=== PATIENT | female | born 1940 | race Caucasian/White ===

== ENCOUNTER → 2019-01-01 09:04 | Outpatient (CLI) | payer MEDICARE, SELFPAY ==
[2019-01-01 10:38] LABS: Alanine Aminotransferase 15 U/L (12-78); Albumin Level 3.9 gm/dL (3.4-5.0); Alkaline Phosphatase 91 U/L (46-116); Aspartate Amino Transferase 14 U/L (15-37); Bilirubin,Direct 0.1 mg/dL (0.0-0.2); Bilirubin,Indirect 0.2 mg/dL (0.0-0.9); Bilirubin,Total 0.3 mg/dL (0.2-1.0); Chol/HDL Ratio 4.4 (1-3.5); Cholesterol 203 mg/dL (140-200); HDL Cholesterol 46 mg/dL (29-89); LDL Cholesterol 116 mg/dL (0-130); Total Protein,Serum 7.8 gm/dL (6.4-8.2); Triglycerides 205 mg/dL (30-200); VLDL Cholesterol 41 mg/dL (0-40)
== END ==
PROVIDERS: Visit Provider Internal Medicine Cardiovascular Disease
DX: E78.2 Mixed hyperlipidemia (principal); G47.33 Obstructive sleep apnea (adult) (pediatric); I10 Essential (primary) hypertension; I44.0 Atrioventricular block, first degree
CPT/HCPCS: 36415; 80061; 80076

== ENCOUNTER → 2019-01-03 08:55 | Outpatient (CLI) | payer MEDICARE, SELFPAY ==
[2019-01-03 09:13] LABS: Basophils # 0.1 K/mm3 (0-0.2); Basophils % 0.9 % (0.1-2.0); Eosinophils # 0.2 K/mm3 (0.0-0.4); Eosinophils % 3.2 % (0.1-12.0); Hematocrit 39.2 % (37.0-47.0); Hemoglobin 12.5 g/dL (12.2-16.2); Lymphocytes # 1.7 K/mm3 (0.7-4.5); Lymphocytes % 31.3 % (10-50); Mean Corpuscular Hemoglobin 31.5 pg (27.0-31.2); Mean Corpuscular Volume 98.5 fl (81-99); Monocytes # 0.3 K/mm3 (0.1-1.0); Monocytes % 6.1 % (1.7-9.3); Neutrophils # 3.2 K/mm3 (1.8-7.8); Neutrophils % 58.6 % (37.0-80.0); Platelet Count 304 K/mm3 (142-424); Red Blood Count 3.98 M/mm3 (4.20-5.40); Red Cell Distribution Width 12.3 % (11.5-17.5); White Blood Count 5.4 K/mm3 (4.8-10.8)
[2019-01-03 11:44] LABS: Alanine Aminotransferase 16 U/L (12-78); Albumin Level 3.7 gm/dL (3.4-5.0); Albumin/Globulin Ratio 1.1 (1.1-1.8); Alkaline Phosphatase 94 U/L (46-116); Anion Gap 11.7 mEq/L (5-15); Aspartate Amino Transferase 14 U/L (15-37); Bilirubin,Total 0.4 mg/dL (0.2-1.0); Blood Urea Nitrogen 32 mg/dL (7-18); Calcium 10.4 mg/dL (8.5-10.1); Carbon Dioxide 32 mmol/L (21.0-32.0); Chloride 102 mmol/L (98-107); Creatinine,Serum 1.37 mg/dL (0.55-1.02); Estimated Glomerular Filt Rate 37 ml/min (>60); Free T4 (Free Thyroxine) 0.99 ng/dl (0.76-1.46); GFR (African American) 45 ML/MIN (>60); Globulin 3.5 gm/dl (1.3-3.2); Glucose 108 mg/dL (74-106); Potassium 4.7 mmoL/L (3.5-5.1); Sodium 141 mmol/L (136-145); Total Protein,Serum 7.2 gm/dL (6.4-8.2)
[2019-01-03 16:59] LABS: Hemoglobin A1C 6.5 % (0.0-7.0)
== END ==
PROVIDERS: Visit Provider Family Medicine
DX: E11.9 Type 2 diabetes mellitus without complications (principal); I10 Essential (primary) hypertension; Z79.84 Long term (current) use of oral hypoglycemic drugs
CPT/HCPCS: 36415; 80053; 83036; 84439; 84443; 85025

== ENCOUNTER → 2019-04-25 20:18 | Outpatient (CLI) | payer MEDICARE, SELFPAY | PROVIDERS: PCP Family Medicine; Visit Provider Specialist | DX: G47.31 Primary central sleep apnea (principal); G89.29 Other chronic pain; I10 Essential (primary) hypertension | CPT/HCPCS: 95811 ==

== ENCOUNTER → 2020-01-09 11:44 | Outpatient (CLI) | payer MEDICARE, SELFPAY ==
--- NOTE | 2020-01-09 | CA_ITS ---
APPROVED REPORT Exam: Pharmacologic Technologist: Opal Hdez, Ht: 5 ft 7 in Wt: 156 lbs BSA: 1.82 m2 HR: 49 bpm BP: 182/71 mmHg Medical History Medical History: Diabetic ??? Noninsulin, HTN, Hyperlipidemia Medications: Metoprolol,,,,, Simvastatin,,,,, Asa,,,,, Hydrocodone,,,,, Losartan,,,,, HCTZ,,,,, Vit B12,,,,, Vit D 3,,,,, OxYbutyIN,,,,, Allergies: No known drug allergies Cardiac Risk Factors: HTN, Hyperlipidemia, Diabetes (non-insulin), FHX of CAD Stress Test Details Test: LEXISCAN HR Resting HR: 54 bpm Max Heart Rate (APMHR): 140 bpm Max HR Achieved: 87 bpm Target HR (85% APMHR): 119 bpm % of APMHR: 62 Recovery HR: 79 bpm BP Resting BP: 182.0/71.0 mmHg Max BP: 182.0/71.0 mmHg Recovery BP: 146.0/63.0 mmHg ECG Resting ECG: SINUS MAX,FIRST DEGREE AVB,Q WAVE IN V2 Clinical Exercise duration: 04:06 min Highest Stage Achieved: Exercise capacity: 1.0 METs Stress ECG Conclusion SWITCHED FROM EXERCISE DUE TO SLOW HEART RATE AN CONCERNS ABOUT EXERCISE TOLERANCE. DURING INFUSION PATIENT HAD SOA,MILD MALAISE BUT NO CHEST PAIN. NO ARRHYTHMIAS/ECTOPY. NO SIGNIFICANT ST-T CHANGES. UNREMARKABLE LEXISCAN STRESS. MYOVIEW IMAGES REPORTED SEPARATELY. . Test Summary REST 01:17 . . 54 . 182/ 71 . . Stage 1 . . . . . . . Cardiolite injected Stage 1 01:00 . . 79 . 178/ 65 . . Stage 2 01:00 . . 86 . 136/ 67 . . Stage 3 01:00 . . 83 . 143/ 67 . . Stage 4 01:00 . . 85 . 141/ 66 . . Stage 4 01:06 . . 84 . 141/ 66 . Stop exercise at 04:06 RECOVERY 01:00 . . 80 . . . . RECOVERY 02:00 . . 78 . 146/ 63 . . RECOVERY 03:00 . . 75 . 150/ 68 . . RECOVERY 04:00 . . 78 . 156/ 70 . . RECOVERY 04:37 . . 76 . 156/ 70 . . Electronically signed by : Derek Stephenson, 01/10/2020 08:51:31
--- NOTE | 2020-01-09 11:44 | NM_ITS ---
APPROVED REPORT Exam: Nuclear Stress Test Indication: Chest pain, SOB, HTN, DM, High cholesterol, Family history Patient Location: Outpatient Stress Tech: Maryuri Hdez NE Tech:Alison Valladares, ARRT, RT (R)(N) Ht: 5 ft 7 in Wt: 156 lbs Bra Size: 38C HR: 49 bpm BP: 182/71 mmHg BSA: 1.82 m2 BMI: 24.4 History: Chest pain, SOB, HTN, DM, High cholesterol, Family history Procedure: Patient received a 0.4 mg of intravenous Lexiscan, resting heart rate 49 bpm, resting blood pressure 182/71 mmHg, with Lexiscan maximum heart rate achived was 87 bpm which is % of the maximum predicted heart rate and blood pressure was 143/67 mmHg. With Lexiscan, patient denied any complaint of chest pain. Cardiac Stress and Resting SPECT Images: Cardiac Stress and Resting SPECT images were obtained using technetium 99m Myoview 29.4 mCi stress and 10.84 mCi at rest. EF 65% Diaphragmatic attenuation artifact No reversible defects that would indicate ischemic changes Conclusion: EF 65% Diaphragmatic attenuation artifact No reversible defects that would indicate ischemic changes Electronically signed by : Dexter Vásquez MD 01/09/2020 20:14:32
--- NOTE | 2020-01-09 12:43 | HMH.ITSHM ---
Current Home Medications as stated by this patient Sharmila Juares or resources representative. []LOSARTAN METFORMIN METOPROLOL HYDROCHLOROTHIAZIDE OMEPRAZOLE SIMVASTATIN HYDROCODONE
== END ==
PROVIDERS: PCP Family Medicine; Visit Provider Physician Assistant
DX: E11.9 Type 2 diabetes mellitus without complications (principal); I10 Essential (primary) hypertension; I20.9 Angina pectoris, unspecified; I44.0 Atrioventricular block, first degree; R06.00 Dyspnea, unspecified; R94.31 Abnormal electrocardiogram [ECG] [EKG]; Z79.84 Long term (current) use of oral hypoglycemic drugs
CPT/HCPCS: 78452; 93017; A9502; J2785

== ENCOUNTER 2020-03-02 09:27 | Emergency (ER) | payer MEDICARE, SELFPAY ==
--- NOTE | 2020-03-02 09:35 | ECG_ITS ---
APPROVED REPORT Exam: Resting ECG HR:103 bpm ECG Measurements Heart Rate 103 AXES RI 192 P 44 QRSd 102 QRS -58 QT 366 T 86 QTc 479 <Conclusion> Sinus tachycardia Left anterior fascicular block Left ventricular hypertrophy with repolarization abnormality Anteroseptal infarct, age undetermined Abnormal ECG Electronically signed by : Harjeet Dowell, 03/03/2020 14:08:00
[2020-03-02 09:37] VITALS: BP 119/69; PULSE 108; RESP 16; TEMP 36.9; O2SAT 90; BMI 24.2
--- NOTE | 2020-03-02 09:47 | XR_ITS ---
PROCEDURE: XR CHEST PORTABLE CLINICAL HISTORY: chest pain COMPARISON: [facility] CT CHEST W/O CONTRAST from 08/16/2017 FINDINGS: The cardiomediastinal silhouette and pulmonary vascularity are within normal limits. There is mild aortic tortuosity. The lungs are clear without infiltrates, suspicious nodules, or pleural effusions. There monitor lines overlying the chest. No acute bony abnormalities. There are degenerative changes in both AC joints. IMPRESSION: No acute findings. Dictated by: Dr. Ishaan Freitas MD 03/02/2020 11:[address] Ishaan Freitas MD in [place] 03/02/2020 11:10
[2020-03-02 09:54] VITALS: BP 103/55; PULSE 98; O2SAT 97
[2020-03-02 09:54] LABS: Basophils # 0.1 K/mm3 (0-0.2); Basophils % 0.4 % (0.1-2.0); Eosinophils # 0.1 K/mm3 (0.0-0.4); Eosinophils % 0.5 % (0.1-12.0); Hematocrit 35.2 % (37.0-47.0); Hemoglobin 11.2 g/dL (12.2-16.2); Lymphocytes # 0.9 K/mm3 (0.7-4.5); Lymphocytes % 4.9 % (10-50); Mean Corpuscular HGB Conc 31.7 g/dL (31.8-35.4); Mean Corpuscular Hemoglobin 30.6 pg (27.0-31.2); Mean Corpuscular Volume 96.3 fl (81-99); Mean Platelet Volume 7.3 fl (7.4-10.4); Monocytes # 0.8 K/mm3 (0.1-1.0); Monocytes % 4.5 % (1.7-9.3); Neutrophils # 15.5 K/mm3 (1.8-7.8); Neutrophils % 89.7 % (37.0-80.0); Platelet Count 352 K/mm3 (142-424); Red Blood Count 3.66 M/mm3 (4.20-5.40); Red Cell Distribution Width 13.6 % (11.5-17.5); White Blood Count 17.2 K/mm3 (4.8-10.8)
[2020-03-02 09:55] LABS: Chloride 106 mmol/L (98-107)
[2020-03-02 09:56] LABS: Potassium 4.4 mmoL/L (3.5-5.1); Sodium 136 mmol/L (136-145)
[2020-03-02 09:58] LABS: Blood Urea Nitrogen 36 mg/dl (7-17)
[2020-03-02 09:59] LABS: Anion Gap 11.4 mEq/L (5-15); Calcium 9.6 mg/dl (8.4-10.2); Carbon Dioxide 23 mmol/L (22.0-30.0); Creatinine Clearance Estimated 34 mL/min (50-200); Estimated Glomerular Filt Rate 36 ml/min (>60); GFR (African American) 44 ML/MIN (>60); Glucose 233 mg/dl (74-100)
[2020-03-02 10:01] LABS: MANUAL DIFFERENTIAL MANUAL DIFFERENTIAL (MANUAL DIFF)
[2020-03-02 10:05] LABS: Alanine Aminotransferase 21 U/L (12-78); Amylase 86 U/L (30-110); Bilirubin,Unconjugated 0.4 mg/dL (0.0-1.1)
[2020-03-02 10:06] LABS: Albumin Level 4.2 g/dl (3.5-5.0); Alkaline Phosphatase 90 U/L (38-126); Aspartate Amino Transferase 22 U/L (14-36); Bilirubin,Indirect 0.4 mg/dL (0.0-0.9); Bilirubin,Total 0.4 mg/dl (0.2-1.3); Lipase 62 U/L (23-300); Total Protein,Serum 7.6 g/dl (6.3-8.2)
[2020-03-02 10:11] LABS: Lymphocytes % 6 % (10-50); Monocytes % 4 % (2-9); Neutrophils % 86 % (42-76); Platelet Estimate Clumped; RBC Morphology Normal; Total Cells Counted 100; Troponin I < 0.01 ng/ml (0.00-0.034)
[2020-03-02 10:38] VITALS: BP 101/64; PULSE 117; O2SAT 96
--- NOTE | 2020-03-02 10:51 | HMH.EDCP ---
ED Disposition Clinical Impression: GERD (gastroesophageal reflux disease), Pneumonia Disposition: Home, Self-Care Condition on Discharge: Good Prescriptions: Metoprolol Succinate [Metoprolol Succinate 50mg Tablet*] 50 mg PO DAILY 3 Days #30 tab Transmission Status: Pending to [email or web address] Cefdinir [Omnicef 300mg Capsule] 300 mg PO BID #20 cap Transmission Status: Pending to [email or web address] Referrals: Provider,Referral, [Primary Care Provider] - - Critical Care Critical Care Time: No Attestation: On 03/02/20, the high probability of a clinically significant, sudden or life threatening deterioration of the following system(s) required my full and direct attention, intervention and personal management. The time I documented below is in addition to time spent performing reported procedures but includes the following listed in this critical care notation. Medical Decision Making - Medical Records Medical records reviewed: Yes: I reviewed the patient's medical records. - Jim Inquiry Pt receiving controlled substance: No Vital Signs: 03/02/20 09:37 03/02/20 09:54 03/02/20 10:38 Temperature 98.4 F Temperature Source Oral Pulse Rate [Left Radial] 108 H 98 H 117 H Respiratory Rate 16 Blood Pressure [Right Arm] 119/69 103/55 L 101/64 L Blood Pressure Mean [Right Arm] 85 71 76 Blood Pressure Source [Right Arm] Automatic Cuff Automatic Cuff Blood Pressure Position [Right Arm] Sitting Sitting Sitting 02 Sat by Pulse Oximetry 90 L 97 96 Oxygen Delivery Method Room Air Room Air Room Air - Lab Data Lab results reviewed: Yes: I reviewed the patient's lab results. Lab Results 03/02/20 09:40: WBC 17.2 H, RBC 3.66 L, Hgb 11.2 L, Hct 35.2 L, MCV 96.3, MCH 30.6, MCHC 31.7 L, RDW 13.6, Plt Count 352, MPV 7.3 L, Neut % (Auto) 89.7 H, Lymph % (Auto) 4.9 L, Beadle % (Auto) 4.5, Eos % (Auto) 0.5, Baso % (Auto) 0.4, Neut # (Auto) 15.5 H, Lymph # (Auto) 0.9, Beadle # (Auto) 0.8, Eos # (Auto) 0.1, Baso # (Auto) 0.1, Total Counted 100, Neutrophils % (Manual) 86 H, Band Neutrophils % 1.0, Lymphocytes % (Manual) 6 L, Monocytes % (Manual) 4, Metamyelocytes % 3.0 H, Platelet Estimate Clumped, RBC Morphology Normal 03/02/20 09:40: Sodium 136, Potassium 4.4, Chloride 106, Carbon Dioxide 23, Anion Gap 11.4, BUN 36 H, Creatinine 1.40 H, Estimated Creat Clear 34, Estimated GFR 36 L, Est GFR ( Amer) 44 L, Glucose 233 H, Calcium 9.6, Troponin I < 0.01 03/02/20 09:40: Total Bilirubin 0.4, Direct Bilirubin 0.0, Conjugated Bilirubin 0.0, Indirect Bilirubin 0.4, Unconjugated Bilirubin 0.4, AST 22, ALT 21, Alkaline Phosphatase 90, Total Protein 7.6, Albumin 4.2, Amylase 86, Lipase 62 Result diagrams: 03/02/20 09:40 03/02/20 09:40 Orders (Tests/Meds): ED MEDICATIONS Discontinued Medications Generic Name Dose Route Start Last Admin Trade Name Freq PRN Reason Stop Dose Admin Belladonna Alkaloids 60 ml 03/02/20 09:47 03/02/20 09:49 Gi Cocktail 60ml Udc PO 03/02/20 09:48 60 ml ONCE ONE Administration ORDERS Category Date Time Status XR chest portable Stat Exams 03/02/20 09:47 Taken Troponin I Q3H Lab 03/02/20 13:00 Ordered Troponin I Q3H Lab 03/02/20 16:00 Ordered - Radiology Data #1 Image(s): Chest Preliminary Findings: Abnormal (Possible left lower lobe atelectasis/developing infiltrate) - ECG Data Tracing #1 I reviewed this ECG and interpreted as documented below: Normal Sinus Rhythm: Yes Medical Decision Narrative: Patient received a GI cocktail and her pain subsided. Chest Pain HPI - General Chief Complaint: Chest Pain Stated Complaint: chest pressure heart racing Time Seen by Provider: 03/02/20 10:51 Mode of Arrival: Ambulatory Source of Information: Patient Limitations: No Limitations Description of Symptoms (Recalled from ER Triage Doc. by RN): to ed per pvt car with c/o chest burning starting this am, +vomiting, +diarrhea. pt denies any radia
--- NOTE | 2020-03-02 10:53 | PC.NURSE ---
notified pt daughter at this time of pt POC. States she is going to run home for few minutes and then she will be back
[2020-03-02 11:48] VITALS: BP 114/60; PULSE 108; RESP 18; O2SAT 96
[2020-03-02 12:40] VITALS: BP 110/63; PULSE 87; O2SAT 99
[2020-03-02 12:55] VITALS: BP 108/62; PULSE 94; RESP 20; TEMP 36.9; O2SAT 94
== END 2020-03-02 12:55 | disposition home or self-care (01) ==
PROVIDERS: Emergency Provider Family Medicine
DX: J18.9 Pneumonia, unspecified organism (principal); K21.9 Gastro-esophageal reflux disease without esophagitis; E11.9 Type 2 diabetes mellitus without complications; I10 Essential (primary) hypertension; E78.5 Hyperlipidemia, unspecified; Z90.79 Acquired absence of other genital organ(s); Z79.84 Long term (current) use of oral hypoglycemic drugs
CPT/HCPCS: 71045; 80048; 80076; 82150; 83690; 84484; 85007; 85025; 93005; 96365; 96367; 96375; 99284; J0456

== ENCOUNTER → 2021-07-07 08:05 | Outpatient (CLI) | payer MEDICARE, SELFPAY ==
[2021-07-07 08:47] LABS: Basophils # 0.1 K/mm3 (0-0.2); Basophils % 0.8 % (0.1-2.0); Eosinophils # 0.2 K/mm3 (0.0-0.4); Eosinophils % 3.6 % (0.1-12.0); Lymphocytes % 29.7 % (10-50); Mean Corpuscular HGB Conc 31.7 g/dL (31.8-35.4); Mean Corpuscular Volume 100.8 fl (81-99); Mean Platelet Volume 7.1 fl (7.4-10.4); Monocytes # 0.5 K/mm3 (0.1-1.0); Monocytes % 6.8 % (1.7-9.3); Neutrophils % 59.1 % (37.0-80.0); Platelet Count 317 K/mm3 (142-424); Red Blood Count 3.76 M/mm3 (4.20-5.40); Red Cell Distribution Width 12.2 % (11.5-17.5); White Blood Count 6.8 K/mm3 (4.8-10.8)
[2021-07-07 09:10] LABS: Alanine Aminotransferase 13 U/L (12-78); Albumin Level 4.6 g/dl (3.5-5.0); Alkaline Phosphatase 80 U/L (38-126); Aspartate Amino Transferase 21 U/L (14-36); Bilirubin,Direct 0.2 mg/dl (0.0-0.4); Bilirubin,Indirect 0.2 mg/dL (0.0-0.9); Bilirubin,Total 0.4 mg/dl (0.2-1.3); Bilirubin,Unconjugated 0.2 mg/dL (0.0-1.1); Cholesterol 160 mg/dl (140-200); HDL Cholesterol 53 mg/dl (40-60); Total Protein,Serum 7.7 g/dl (6.3-8.2); Triglycerides 187 mg/dl (30-150); VLDL Cholesterol 37 mg/dL (0-40)
[2021-07-07 09:12] LABS: Alanine Aminotransferase 14 U/L (12-78); Albumin Level 4.5 g/dl (3.5-5.0); Albumin/Globulin Ratio 1.4 (1.1-1.8); Alkaline Phosphatase 83 U/L (38-126); Anion Gap 16.4 mEq/L (5-15); Aspartate Amino Transferase 21 U/L (14-36); Bilirubin,Total 0.4 mg/dl (0.2-1.3); Blood Urea Nitrogen 36 mg/dl (7-17); Calcium 9.4 mg/dl (8.4-10.2); Carbon Dioxide 28 mmol/L (22.0-30.0); Chloride 103 mmol/L (98-107); Estimated Glomerular Filt Rate 36 ml/min (>60); GFR (African American) 44 ML/MIN (>60); Globulin 3.2 g/dL (1.3-3.2); Glucose 129 mg/dl (74-100); Potassium 4.4 mmoL/L (3.5-5.1); Sodium 143 mmol/L (136-145); Total Protein,Serum 7.7 g/dl (6.3-8.2)
[2021-07-07 09:21] LABS: Direct LDL Cholesterol 64.87 mg/dL (100-129)
[2021-07-07 09:26] LABS: 25-OH Vitamin D, Total 79.4 ng/mL (30-100)
[2021-07-07 10:38] LABS: Hemoglobin A1C 6.9 % (4.0-6.0)
[2021-07-07 11:14] LABS: Creatinine,Urine Random 108 mg/dL (Not Estab.)
[2021-07-07 11:18] LABS: Microalbumin/Creatinine Ratio 20.3
[2021-07-08 11:22] LABS: Vitamin B12 978 pg/mL (239-931)
[2021-07-08 11:26] LABS: Folate 6.33 ng/mL
== END ==
PROVIDERS: Internal Medicine Adolescent Medicine; Internal Medicine Cardiovascular Disease; Visit Provider Nurse Practitioner Family
DX: E11.9 Type 2 diabetes mellitus without complications (principal); E78.5 Hyperlipidemia, unspecified; I10 Essential (primary) hypertension; I44.0 Atrioventricular block, first degree; R94.31 Abnormal electrocardiogram [ECG] [EKG]
CPT/HCPCS: 36415; 80053; 80061; 80076; 82043; 82306; 82570; 82607; 82746; 83036; 85025

== ENCOUNTER → 2021-08-24 14:57 | Outpatient (CLI) | payer MEDICARE, SELFPAY ==
--- NOTE | 2021-08-24 14:58 | MM_ITS ---
PROCEDURE: MM DIG SCREENING MAMM BI W/CAD Digital Breast Tomosynthesis Included CLINICAL INDICATION: SCREENING There is no personal or family history of breast cancer. COMPARISON: MG MAMMO SCREENING DIGITAL TOMOSYNTHESIS BILATERAL from 08/22/2019 MG MAMMO SCREENING DIGITAL TOMOSYNTHESIS BILATERAL from 09/05/2020 TECHNIQUE: Standard CC and MLO images and 3D Tomosynthesis was obtained. R2 CAD reviewed. FINDINGS: Prominent diffuse heterogenic fibroglandular densities are seen throughout both breasts there is stable coarse benign-appearing macrocalcifications right breast. There is a mole marker left breast. There are couple of benign-appearing microcalcifications left breast. There is lesion in either breast and no suspicious microcalcifications. IMPRESSION: Markedly and diffusely dense parenchymal pattern stable unchanged from previous studies with no suspicious lesions seen BI-RAD Category: 2 Benign Finding(s) FOLLOW-UP: 1YR 1 Year Follow-up (A letter has been sent to the patient regarding results of the study.) Dictated by: Dr. Ishaan Freitas MD 09/04/2021 08:41 Dr. Ishaan Freitas MD in [place] 09/04/2021 08:41
== END ==
PROVIDERS: PCP Nurse Practitioner Family; Visit Provider Nurse Practitioner Family
DX: Z12.31 Encounter for screening mammogram for malignant neoplasm of breast (principal)
CPT/HCPCS: 77063; 77067

== ENCOUNTER → 2021-12-24 14:37 | Outpatient (CLI) | payer MEDICARE, SELFPAY | PROVIDERS: Visit Provider Internal Medicine | DX: Z01.812 Encounter for preprocedural laboratory examination (principal); Z11.52 Encounter for screening for COVID-19 | CPT/HCPCS: C9803; U0003; U0005 ==

== ENCOUNTER 2021-12-25 08:24 | Day surgery (SDC) | payer MEDICARE, SELFPAY ==
[2021-12-25] VITALS (13 sets, daily range): BP systolic 121–155; BP diastolic 60–96; PULSE 44–69; RESP 16–19; TEMP 36.8; O2SAT 95–99; BMI 26.7
--- NOTE | 2021-12-25 07:27 | IR_ITS ---
APPROVED REPORT Patient Location: Outpatient Security Assessor: LUCITA Miller RT (R) PROCEDURES Left heart catheterization Left ventriculogram Selective coronary angiogram INDICATION Abnormal Myoview, Angina pectoris, Informed consent was obtained prior to the procedure. COMPLICATIONS NONE Estimated Blood Loss: LESS THAN 10 ML TECHNIQUE One percent lidocaine used to anesthetize the right anterior aspect of the wrist. The right radial artery was accessed via the Seldinger technique. A 6 Kiswahili sheath was placed in the right radial artery. 2.5 mg of verapamil, 800 mcg of nitroglycerin, 1mg Lidocaine and 5000 U Heparin were given through the arterial sheath. The papa catheter was also used to perform left heart catheterization, left ventriculogram and selective coronary angiogram. At the end of the procedure the sheath was removed good hemostasis was achieved using Traclet band, patient was transferred to the postop holding area in stable condition. ANGIOGRAPHIC RESULTS The left main artery Normal The left anterior descending artery Normal The circumflex artery Normal The right coronary artery Dominant normal The SHELDON ventriculogram reveals Hyperdynamic 75 to 80% The left ventricular end-diastolic pressure 25 mmHg IMPRESSION Normal coronary arteries Hyperdynamic ventricle with elevated LVEDP PLAN 1. Treatment of hyperdynamic ventricle with hypertensive heart disease Electronically signed by : Derek Stephenson MD 12/25/2021 13:22:50
[2021-12-25 09:02] LABS: Basophils # 0.1 K/mm3 (0-0.2); Basophils % 1.3 % (0.1-2.0); Eosinophils # 0.1 K/mm3 (0.0-0.4); Eosinophils % 2.1 % (0.1-12.0); Hematocrit 36.4 % (37.0-47.0); Hemoglobin 11.4 g/dL (12.2-16.2); Lymphocytes # 1.6 K/mm3 (0.7-4.5); Mean Corpuscular HGB Conc 31.4 g/dL (31.8-35.4); Mean Corpuscular Hemoglobin 31.4 pg (27.0-31.2); Mean Corpuscular Volume 100.2 fl (81-99); Mean Platelet Volume 8.3 fl (7.4-10.4); Monocytes # 0.3 K/mm3 (0.1-1.0); Monocytes % 5.6 % (1.7-9.3); Neutrophils # 3.6 K/mm3 (1.8-7.8); Platelet Count 297 K/mm3 (142-424); Red Blood Count 3.63 M/mm3 (4.20-5.40); Red Cell Distribution Width 13.3 % (11.5-17.5); White Blood Count 5.8 K/mm3 (4.8-10.8)
[2021-12-25 09:12] LABS: Chloride 103 mmol/L (98-107); Potassium 4.1 mmoL/L (3.5-5.1); Sodium 137 mmol/L (136-145)
[2021-12-25 09:15] LABS: Anion Gap 11.1 mEq/L (5-15); Blood Urea Nitrogen 31 mg/dl (7-17); Carbon Dioxide 27 mmol/L (22.0-30.0); Creatinine Clearance Estimated 33 mL/min (50-200); Estimated Glomerular Filt Rate 31 ml/min (>60); GFR (African American) 37 ML/MIN (>60)
[2021-12-25 09:16] LABS: Calcium 8.4 mg/dl (8.4-10.2); Glucose 134 mg/dl (74-100)
== END 2021-12-25 14:23 | disposition home or self-care (01) ==
LOC: CATHLAB 08:25
PROVIDERS: PCP Nurse Practitioner Family; Visit Provider Internal Medicine
DX: E11.9 Type 2 diabetes mellitus without complications (principal); E78.2 Mixed hyperlipidemia; I10 Essential (primary) hypertension; I44.0 Atrioventricular block, first degree; K21.9 Gastro-esophageal reflux disease without esophagitis; R06.00 Dyspnea, unspecified; R94.31 Abnormal electrocardiogram [ECG] [EKG]; I25.110 Atherosclerotic heart disease of native coronary artery with unstable angina pectoris; Z79.84 Long term (current) use of oral hypoglycemic drugs; Z79.899 Other long term (current) drug therapy
CPT/HCPCS: 80048; 85025; 93458; 99152; C1725; C1769; J1644; Q9967

== ENCOUNTER → 2022-07-16 10:32 | Outpatient (CLI) | payer MEDICARE, SELFPAY ==
--- NOTE | 2022-07-16 10:38 | XR_ITS ---
FINAL REPORT CLINICAL HISTORY: left wrist pain FINDINGS: Left wrist Three views were obtained. There is no acute fracture or dislocation. There are minimal hypertrophic changes at the basilar joint. No soft tissue abnormality is identified. IMPRESSION: No acute process. Reviewed, Interpreted and Dictated by Luan Dunbar MD Transcribed by Inga Michele Authenticated and [facility]
== END ==
PROVIDERS: PCP Nurse Practitioner Family; Visit Provider Orthopaedic Surgery
DX: M25.532 Pain in left wrist (principal)
CPT/HCPCS: 73110

== ENCOUNTER 2022-07-16 12:53 | Outpatient (RCR) | payer MEDICARE, SELFPAY | END 2022-07-16 14:00 | disposition home or self-care (01) | LOC: OT 12:53 | PROVIDERS: Visit Provider Orthopaedic Surgery | DX: M25.532 Pain in left wrist (principal) | CPT/HCPCS: 97763 ==

== ENCOUNTER → 2023-06-13 14:24 | Outpatient (POV) | payer MEDICARE, SELFPAY ==
--- NOTE | 2023-06-13 14:40 | EXP.PAIN.OV ---
HPI Data of Consult Patient: new to practice Consult date: 06/13/23 Requesting Physician: Mita Garza APRN Primary Care Provider: Anna Montalvo APRN Consult Narrative Reason for consult: Low back pain, right leg pain History of present illness: Ms. Juares is a 82 year old female who presents today as a new patient. She is a self-referral. Patient does rate her pain today an 8 out of 10. Patient states her pain is all in her low back with radiating symptoms into her ribs and that she will occasionally also have radiating symptoms into her right leg that is more prominent at night. Patient does state this has been going on for years and progressively worsened over time. She states initially about 4 years ago she had a fall that resulted in compression fractures and she continues to have pain in these areas. Patient does describe her pain as an aching, throbbing sensation that is worse with increased activity. She states the pain is worse with standing. She does state that she frequently cooks a lot and that she has to stop and take multiple breaks due to the pain. Patient does state the pain interferes with her ability perform activities of daily living such as cooking and cleaning. Patient has tried [id number] medications along with heat and ice and topicals with no additional relief. Patient denies any previous surgery or injective history. Patient does state that she has had physical therapy and home health in the past with minimal improvement. Patient is not on any scheduled medications. Her Jim is [phone]. Its been reviewed and appropriate. CC: Mita Garza APRN [facility] Disclaimer: The information contained in this section may have been updated after the patient was seen, as this information can be updated by other users. Medical History (Updated 06/13/23 @ 15:08 by Mita Garza APRN) Chronic pain syndrome Crescendo angina Family History Other Cancer Coronary artery disease Diabetes Heart attack Hypertension Social History Smoking Status: Former smoker second hand exposure: No alcohol intake: never counseling provided: none substance use type: denies use current occupational status: retired Travel in the last 8 weeks: None household members: none housing: house current occupational exposures/hazards: No Review of Systems Review of Systems Review of systems:: pertinent systems reviewed and negative unless documented below Review of systems (narrative): Review of Systems: General: No recent weight changes, no fever, no sleep disturbances Respiratory: No cough, no shortness of air, no recurring pulmonary infections Cardiovascular/peripheral vascular: No chest pain, no palpitations, no edema, no shortness of breath Gastrointestinal: No new onset incontinence, normal bowel movements reported Genitourinary: No new onset incontinence Musculoskeletal: Low back pain, right-sided rib pain, right leg pain Psychiatric: [Normal mood/affect] Neurological: [Denies weakness in extremities], [denies balance issues] Meds Home Medications and Allergies Home Medications Medication Instructions Recorded Confirmed Type aspirin 81 mg tablet,delayed 81 mg PO ONCE Heart disease 12/08/17 03/17/23 History release (Adult Low Dose Aspirin) cholecalciferol (vitamin D3) 25 1,000 unit PO ONCE Supplement 12/08/17 03/17/23 History mcg (1,000 unit) capsule mecobalamin (vitamin B12) 5,000 5,000 mcg PO DAILY supplement 12/08/17 03/17/23 History mcg disintegrating tablet hydrocodone 5 mg-acetaminophen 325 1 tab PO TID PRN pain #30 tabs 03/26/19 03/17/23 History mg tablet losartan 50 mg tablet 50 mg PO DAILY High blood pressure 03/02/20 03/17/23 History fexofenadine 180 mg tablet 180 mg PO DAILY Allergy symptoms 10/01/20 03/17/23 History (Rosanna Allergy) rosuvastatin 20
[2023-06-13 15:31] VITALS: BP 115/60; PULSE 61; RESP 18; O2SAT 97; BMI 54.2
== END ==
PROVIDERS: PCP Nurse Practitioner Family; Visit Provider Nurse Practitioner Family
DX: G89.4 Chronic pain syndrome; M48.062 Spinal stenosis, lumbar region with neurogenic claudication; M51.16 Intervertebral disc disorders with radiculopathy, lumbar region; M54.50 Low back pain, unspecified
CPT/HCPCS: 99202; G0463

== ENCOUNTER 2023-06-28 10:51 | Day surgery (SDC) | payer MEDICARE, SELFPAY ==
[2023-06-28 10:59] VITALS: BP 154/70; PULSE 70; RESP 18; O2SAT 98; BMI 24.3
--- NOTE | 2023-06-28 11:28 | EXP.PAIN.PRO ---
Procedure Date: 06/28/23 Time: 11:25 Anesthesiologist:: Yrn Andre CRNA Complications:: None Pre-procedure Diagnosis:: Degenerative disc thoracolumbar spine. Thoracolumbar spondylosis. Thoracolumbar radiculopathy. Post-procedure Diagnosis:: Same. Indications for Procedure:: Patient is a very pleasant 82-year-old female that comes our clinic today for a T12-L1 epidural steroid injection. Patient has thoracolumbar pain she describes as constant, dull, aching. Patient also complains of some thoracolumbar radicular symptoms bilaterally. She rates her pain 7/10. Procedure Details:: Procedure:Thoracic epidural steroid injection under fluoroscopy Informed consent was obtained and the risks and benefits of the procedure were explained to the patient. The patient was taken to the procedure room and noninvasive monitors placed, including noninvasive blood pressure cuff and pulse oximeter. The back was viewed using C-Arm fluoroscopy and prepped using Betadine as a cleansing solution and the T12-L1 interspace was palpated. Skin and subcutaneous tissues were anesthetized using lidocaine 1.5% and a 25-gauge needle. After this, an 18-gauge Touhy epidural needle was placed into the T12-L1 interspace and advanced using fluoroscopic guidance and loss of resistance to air until the epidural space was encountered. After confirmation of needle placement in the epidural space, with dye, a solution containing lidocaine 1.5%, 4 mL and Depo-Medrol 80 mg were incrementally injected into the thoracic epidural space. The patient tolerated the procedure well with no complications. The patient was observed in the Pain Clinic and then discharged home neurologically intact. Plan and Disposition:: Patient was discharged without incident.
[2023-06-28 11:29] VITALS: BP 142/64; PULSE 66; RESP 17; O2SAT 98
[2023-06-28 11:30] VITALS: BP 142/64; PULSE 66; RESP 17; O2SAT 98
[2023-06-28 11:38] VITALS: BP 149/71; PULSE 60; RESP 20
== END 2023-06-28 11:39 | disposition home or self-care (01) ==
PROVIDERS: PCP Nurse Practitioner Family; Visit Provider Nurse Anesthetist, Certified Registered
DX: M51.15 Intervertebral disc disorders with radiculopathy, thoracolumbar region (principal); M47.25 Other spondylosis with radiculopathy, thoracolumbar region
CPT/HCPCS: 62321; J1040

== ENCOUNTER → 2023-07-07 11:52 | Outpatient (CLI) | payer MEDICARE, SELFPAY ==
[2023-07-07 12:42] LABS: Basophils # 0.1 K/mm3 (0-0.2); Basophils % 0.7 % (0.1-2.0); Eosinophils # 0.2 K/mm3 (0.0-0.4); Eosinophils % 1.8 % (0.1-12.0); Hematocrit 40.7 % (37.0-47.0); Hemoglobin 12.7 g/dL (12.2-16.2); Mean Corpuscular HGB Conc 31.2 g/dL (31.8-35.4); Mean Corpuscular Hemoglobin 30.9 pg (27.0-31.2); Mean Corpuscular Volume 98.9 fl (81-99); Mean Platelet Volume 7.6 fl (7.4-10.4); Monocytes # 0.4 K/mm3 (0.1-1.0); Monocytes % 4.9 % (1.7-9.3); Neutrophils # 6.2 K/mm3 (1.8-7.8); Neutrophils % 70.6 % (37.0-80.0); Platelet Count 391 K/mm3 (142-424); Red Blood Count 4.12 M/mm3 (4.20-5.40); Red Cell Distribution Width 12.6 % (11.5-17.5); White Blood Count 8.8 K/mm3 (4.8-10.8)
[2023-07-07 13:13] LABS: Microalbumin/Creatinine Ratio 160.2
[2023-07-07 13:20] LABS: Creatinine,Urine Random 47 mg/dL (Not Estab.)
[2023-07-07 13:41] LABS: Alanine Aminotransferase 27 U/L (12-78); Albumin Level 4.4 g/dl (3.5-5.0); Albumin/Globulin Ratio 1.4 (1.1-1.8); Alkaline Phosphatase 146 U/L (38-126); Anion Gap 17.9 mEq/L (5-15); Aspartate Amino Transferase 25 U/L (14-36); Bilirubin,Total 0.3 mg/dl (0.2-1.3); Blood Urea Nitrogen 66 mg/dl (7-17); Calcium 8.8 mg/dl (8.4-10.2); Carbon Dioxide 23 mmol/L (22.0-30.0); Chloride 103 mmol/L (98-107); Cholesterol 126 mg/dl (140-200); Estimated Glomerular Filt Rate 13 ml/min (>60); GFR (African American) 16 ML/MIN (>60); Globulin 3.1 g/dL (1.3-3.2); Glucose 156 mg/dl (74-100); HDL Cholesterol 42 mg/dl (40-60); Potassium 3.9 mmoL/L (3.5-5.1); Sodium 140 mmol/L (136-145); Total Protein,Serum 7.5 g/dl (6.3-8.2); Triglycerides 176 mg/dl (30-150); VLDL Cholesterol 35 mg/dL (0-40)
[2023-07-07 13:52] LABS: Direct LDL Cholesterol 57.08 mg/dL (100-129)
[2023-07-07 13:57] LABS: 25-OH Vitamin D, Total 95.1 ng/mL (30-100)
[2023-07-07 15:03] LABS: Hemoglobin A1C 8.3 % (4.0-6.0)
== END ==
PROVIDERS: PCP Nurse Practitioner Family; Visit Provider Nurse Practitioner Family
DX: E11.22 Type 2 diabetes mellitus with diabetic chronic kidney disease; N18.32 Chronic kidney disease, stage 3b; E55.9 Vitamin D deficiency, unspecified; Z68.24 Body mass index [BMI] 24.0-24.9, adult; I12.9 Hypertensive chronic kidney disease with stage 1 through stage 4 chronic kidney disease, or unspecified chronic kidney disease
CPT/HCPCS: 36415; 80053; 80061; 82043; 82306; 82570; 83036; 85025

== ENCOUNTER → 2023-07-14 14:27 | Outpatient (POV) | payer MEDICARE, SELFPAY ==
[2023-07-14 14:41] VITALS: BP 120/54; PULSE 63; RESP 18; O2SAT 96; BMI 24.3
--- NOTE | 2023-07-14 14:49 | EXP.PAIN.SOA ---
[facility] Pain Management SOAP Note Subjective:: Patient is a pleasant 82-year-old female who presents today for follow-up of thoracic epidural steroid injection T12-L1 on 06/28/2023. We are currently treating the patient for degenerative disc disease of thoracic and lumbar spine with thoracic and lumbar radiculopathy symptoms, chronic pain syndrome, lumbar spinal stenosis. Today she states her pain is a 7 out of 10. Patient denies any new trauma or injury. She does state that she had at least 60% improvement of her mid back pain following this injection. She states she has been able to increase her activity however following relief of her mid back pain she noticed how much her low back was causing additional issues.Patient does describe her pain in her low back as a aching, throbbing sensation with symptoms going into her right lower extremities. Patient does state that the pain is worse with increased activity such as prolonged walking or standing. Patient does state the pain does interfere with her ability to perform activities of daily living. Patient is interested in any help we may be able to provide. Her Jim has been reviewed and is appropriate Review of Systems: General: No recent weight changes, no fever, no sleep disturbances Respiratory: No cough, no shortness of air, no recurring pulmonary infections Cardiovascular/peripheral vascular: No chest pain, no palpitations, no edema, no shortness of breath Gastrointestinal: No new onset incontinence, normal bowel movements reported Genitourinary: No new onset incontinence Musculoskeletal: Low back pain, bilateral leg pain Psychiatric: [Normal mood/affect] Neurological: [Denies weakness in extremities], [denies balance issues] Objective:: Physical Exam: General: Alert and oriented x3, no acute distress, pleasant and cooperative Lungs: Respirations even and unlabored, symmetrical chest expansion Eyes: PERRL Musculoskeletal: Flexion and extension of lumbar [spine] somewhat guarded secondary to pain, [antalgic gait noted] Neurological: Speech clear, no gross sensory deficit Assessment:: Degenerative disc disease of thoracic and lumbar spine with thoracic and lumbar radiculopathy symptoms, chronic pain syndrome, lumbar spinal stenosis Plan:: Patient is experiencing worsening pain in her low back that radiates into her lower extremities. Patient did have limited range of motion of her lumbar spine during today's visit. I have discussed with patient that she may benefit from a lumbar epidural steroid injection. Risk and benefits were explained to the patient and she would like to proceed forward with this plan of care. Patient is not on any blood thinners. Patient did have severe narrowing multilevel. Patient will be scheduled for an LESI L3-L4. Patient has been instructed to contact the clinic with any concerns before the next appointment. Dr. Skinner has reviewed this note and agrees with this plan of care. This note was dictated using voice recognition software and make contain errors or omissions. [facility] Disclaimer: The information contained in this section may have been updated after the patient was seen, as this information can be updated by other users. Medical History (Updated 07/06/23 @ 10:14 by Beth Denton RN) Chronic pain syndrome Crescendo angina Palpitations Family History Other Cancer Coronary artery disease Diabetes Heart attack Hypertension Social History (Updated 06/13/23 @ 15:32 by Tonya Cordova RN) Smoking Status: Former smoker second hand exposure: No alcohol intake: never counseling provided: none substance use type: denies use current occupational status: retired Travel in the last 8 weeks: None household members: none housing: house current occupational exposures/hazards: No
== END | disposition home or self-care (01) ==
PROVIDERS: Visit Provider Nurse Practitioner Family
DX: M51.14 Intervertebral disc disorders with radiculopathy, thoracic region (principal); M51.16 Intervertebral disc disorders with radiculopathy, lumbar region; M48.061 Spinal stenosis, lumbar region without neurogenic claudication; G89.4 Chronic pain syndrome
CPT/HCPCS: 99212; G0463

== ENCOUNTER → 2023-07-18 14:19 | Outpatient (CLI) | payer MEDICARE, SELFPAY ==
--- NOTE | 2023-07-18 14:25 | US_ITS ---
FINAL REPORT TECHNIQUE: Sonographic images were obtained of the retroperitoneum. CLINICAL HISTORY: CKD STAGE 3 FINDINGS: The right kidney measures 9.6 cm. The left kidney measures 8.6 cm. There is an extrarenal pelvis on the right. There is a 1.7 cm left renal cyst. There are probable gallstones in the limited evaluation of the gallbladder. IMPRESSION: Left renal cyst. No hydronephrosis. Probable gallstones. Reviewed, Interpreted and Dictated by Ana M Pinzon MD Transcribed by Sandro Francisco Authenticated and [facility]
== END ==
PROVIDERS: PCP Nurse Practitioner Family; Visit Provider Nurse Practitioner Family
DX: N18.32 Chronic kidney disease, stage 3b (principal)
CPT/HCPCS: 76770

== ENCOUNTER → 2023-07-28 13:12 | Outpatient (CLI) | payer MEDICARE, SELFPAY ==
[2023-07-28 14:58] LABS: Anion Gap 15.3 mEq/L (5-15); Blood Urea Nitrogen 44 mg/dl (7-17); Calcium 9.1 mg/dl (8.4-10.2); Carbon Dioxide 24 mmol/L (22.0-30.0); Chloride 109 mmol/L (98-107); Estimated Glomerular Filt Rate 19 ml/min (>60); GFR (African American) 23 ML/MIN (>60); Glucose 143 mg/dl (74-100); Phosphorous 4.7 mg/dl (2.5-4.5); Potassium 4.3 mmoL/L (3.5-5.1); Sodium 144 mmol/L (136-145)
== END ==
PROVIDERS: PCP Nurse Practitioner Family; Visit Provider Nurse Practitioner Family
DX: R79.89 Other specified abnormal findings of blood chemistry (principal)
CPT/HCPCS: 36415; 80048; 83735; 84100

== ENCOUNTER → 2023-08-02 10:59 | Day surgery (SDC) | payer MEDICARE, SELFPAY ==
[2023-08-02 11:07] VITALS: BP 149/78; PULSE 64; RESP 16; TEMP 36.2; O2SAT 96; BMI 24.3
--- NOTE | 2023-08-02 11:22 | P.PCN_ITS ---
Procedure Date: 08/02/23 Time: 11:10 Anesthesiologist:: Yrn Andre CRNA Complications:: None Pre-procedure Diagnosis:: Degenerative disc disease lumbar spine multilevels. Lumbar radiculopathy. Thoracolumbar scoliosis. Multilevel lumbar facet arthropathy. Lumbar spondylosis. Post-procedure Diagnosis:: Same. Indications for Procedure:: Patient is a very pleasant 82-year-old female comes our clinic today for lumbar epidural steroid injection at the L3-4 level. However, L3-4 level was not accessible. The patient was given the injection at the L4-5 level. Patient's main complaint is low back as well as left hip and leg radicular symptoms. She rates the pain 7/10. Procedure Details:: Procedure: Lumbar epidural steroid injection under fluoroscopy Informed consent was obtained and the risks and benefits of the procedure were e xplained to the patient. The patient was taken to the procedure room and noninvasive monitors placed, including noninvasive blood pressure cuff and pulse oximeter. The back was viewed using C-arm Fluoroscopy and prepped using Chloraprep as a cleansing solution and the L4-L5 interspace was palpated. Skin and subcutaneous tissues were anesthetized using lidocaine 1.5% and a 25-gauge needle. After this, an 18-gauge Touhy epidural needle was placed into the L4-L5 interspace and advanced using fluoroscopic guidance and loss of resistance to air until the epidural space was encountered. After confirmation of needle placement in the epidural space, with dye, a solution containing normal saline, 3 mL and Depo-Medrol 80 mg were incrementally injected into the lumbar epidural space. The patient tolerated the procedure well with no complications. The patient was observed in the Pain Clinic and then discharged home neurologically intact. Plan and Disposition:: Patient was discharged without incident.
== END | disposition home or self-care (01) ==
PROVIDERS: PCP Nurse Practitioner Family; Visit Provider Nurse Anesthetist, Certified Registered
DX: M51.16 Intervertebral disc disorders with radiculopathy, lumbar region (principal); M41.9 Scoliosis, unspecified; M47.26 Other spondylosis with radiculopathy, lumbar region
CPT/HCPCS: 62323; J1040

== ENCOUNTER → 2023-08-17 10:27 | Outpatient (CLI) | payer MEDICARE, SELFPAY ==
--- NOTE | 2023-08-17 10:30 | MM_ITS ---
PROCEDURE INFORMATION: Exam: MG Bilateral Screening 3D Mammography Exam date and time: 08/17/2023 10:23 AM Age: 82 years old Clinical indication: Screening mammogram TECHNIQUE: Imaging protocol: Bilateral Screening tomosynthesis and 2D mammography including computer-aided detection (CAD) when performed. COMPARISON: 1. MG MM DIG SCREENING MAMM BI W/CAD 08/24/2021 3:16 PM 2. MG MAMMO SCREENING DIGITAL TOMOSYNTHESIS BILATERAL 09/05/2020 8:47 AM FINDINGS: MAMMOGRAPHY: Breast composition: The breast tissue is extremely dense, which lowers the sensitivity of mammography. Mass: None. Architectural distortion: No new or suspicious architectural distortion. Calcifications: Stable benign-appearing calcifications are present. No new or suspicious cluster of microcalcifications have developed. Asymmetric density: No new or suspicious asymmetric density is present Skin thickening: None. Axillary adenopathy: None. IMPRESSION: No mammographic evidence of malignancy. Recommend annual screening mammography unless otherwise clinically indicated. ASSESSMENT: BI-RADS category 2: Benign
== END ==
PROVIDERS: PCP Nurse Practitioner Family; Visit Provider Nurse Practitioner Family
DX: Z12.31 Encounter for screening mammogram for malignant neoplasm of breast (principal)
CPT/HCPCS: 77063; 77067

== ENCOUNTER → 2023-08-24 10:46 | Outpatient (POV) | payer MEDICARE, SELFPAY ==
--- NOTE | 2023-08-24 11:25 | EXP.PAIN.SOA ---
[facility] Pain Management SOAP Note Subjective:: Patient is a pleasant 82-year-old female who presents today for follow-up of lumbar epidural steroid injection of L4-L5 on 08/02/2023. We are currently treating the patient for degenerative disc disease of thoracic and lumbar spine with thoracic and lumbar radiculopathy symptoms, lumbar spinal stenosis, chronic pain syndrome. Today she rates her pain a 4 out of 10. Patient states she had more than 50% improvement following her lumbar epidural and feels like it is still helping. She states she has been able to sleep better and noticed increased ability to walk for longer periods of time. She states she even noticed improvement on her gait. Patient does state today her pain is more related to her mid to low back along the right side. Patient does describe this as an aching, throbbing sensation that is worse with certain movements such as bending, twisting or lifting. Patient denies any radiating symptoms down. She states that pretty much days in the general area of her mid to upper low back. She does state the pain interferes with her ability perform activities of daily living such as cooking and cleaning. Her Jim has been reviewed and is appropriate. Review of Systems: General: No recent weight changes, no fever, no sleep disturbances Respiratory: No cough, no shortness of air, no recurring pulmonary infections Cardiovascular/peripheral vascular: No chest pain, no palpitations, no edema, no shortness of breath Gastrointestinal: No new onset incontinence, normal bowel movements reported Genitourinary: No new onset incontinence Musculoskeletal: Mid/low back pain Psychiatric: [Normal mood/affect] Neurological: [Denies weakness in extremities], [denies balance issues] Objective:: Physical Exam: General: Alert and oriented x3, no acute distress, pleasant and cooperative Lungs: Respirations even and unlabored, symmetrical chest expansion Eyes: PERRL Musculoskeletal: Flexion and extension of lumbar [spine] somewhat guarded secondary to pain, [antalgic gait noted] positive Kemps test Neurological: Speech clear, no gross sensory deficit Assessment:: Degenerative disc disease of thoracic and lumbar spine with thoracic and lumbar radiculopathy symptoms, lumbar spinal stenosis, lumbar facet arthropathy, chronic pain syndrome Plan:: Patient is experiencing worsening pain in and around her upper low back. Patient did have limited range of motion of her lumbar spine during today's visit along with a positive Kemps test. I have discussed with the patient that she may benefit from a lumbar medial branch block along the right side. Risk and benefits were discussed with patient and she would like to proceed forward with this plan of care. Patient is not on any blood thinners. We will schedule her for a right lumbar medial branch block T12-L1 and L1-L2. Patient has been instructed to contact the clinic with any concerns before the next appointment. Dr. Skinner has reviewed this note and agrees with this plan of care. This note was dictated using voice recognition software and make contain errors or omissions. [facility] Disclaimer: The information contained in this section may have been updated after the patient was seen, as this information can be updated by other users. Medical History Chronic pain syndrome Crescendo angina Palpitations Family History Other Cancer Coronary artery disease Diabetes Heart attack Hypertension Social History (Updated 08/02/23 @ 11:08 by Gabriela Campoverde RN) Smoking Status: Former smoker second hand exposure: No alcohol intake: never counseling provided: none substance use type: denies use current occupational status: retired Travel in the last 8 weeks: None household members: none housing: house current occupational exposures/hazards: No
[2023-08-24 11:54] VITALS: BP 127/46; PULSE 64; RESP 18; O2SAT 97; BMI 24.3
== END ==
PROVIDERS: PCP Nurse Practitioner Family; Visit Provider Nurse Practitioner Family
DX: M51.14 Intervertebral disc disorders with radiculopathy, thoracic region (principal); M51.16 Intervertebral disc disorders with radiculopathy, lumbar region; M48.061 Spinal stenosis, lumbar region without neurogenic claudication; M47.26 Other spondylosis with radiculopathy, lumbar region; G89.4 Chronic pain syndrome
CPT/HCPCS: 99212; G0463

== ENCOUNTER 2023-09-20 13:14 | Day surgery (SDC) | payer MEDICARE, SELFPAY ==
[2023-09-20 13:38] VITALS: BP 143/78; PULSE 79; RESP 16; TEMP 36.2; O2SAT 97; BMI 24.3
[2023-09-20 13:43] VITALS: BP 155/65; PULSE 71; RESP 18; O2SAT 97
[2023-09-20 13:45] VITALS: BP 155/65; PULSE 71; RESP 18; O2SAT 97
[2023-09-20 13:50] VITALS: BP 139/65; PULSE 62; RESP 18; O2SAT 97
--- NOTE | 2023-09-20 14:10 | EXP.PAIN.PRO ---
Procedure Date: 09/20/23 Time: 13:45 Anesthesiologist:: Yrn Andre CRNA Complications:: None Pre-procedure Diagnosis:: Degenerative disc thoracolumbar spine. Thoracolumbar radiculopathy. Thoracolumbar multilevel facet arthropathy. Thoracolumbar spondylosis. Post-procedure Diagnosis:: Same. Indications for Procedure:: She is a very pleasant 83-year-old female comes our clinic today for facet block right T12-L1, L1-2. Patient has had moderate to significant improvement terms of her overall right-sided thoracolumbar pain with previous facet blocks at the same level. She reports right thoracolumbar pain as well as right rib cage radicular symptoms at times. She rates her pain 6/10. Procedure Details:: Details of the procedure explained to the patient. The patient taken procedure room placed in the prone position on fluoroscopy table. The area over the thoracolumbar spine was cleansed using chlorhexidine's cleansing solution. Using fluoroscopy guidance and a 22-gauge 3 inch spinal needle the right T12-L1 and right L1-L2 facet joint was accessed with ease. After negative aspiration 1 cc of 1% lidocaine +10 mg of Depo-Medrol was injected at each level. Patient tolerated procedure without difficulty. There are no complications. Plan and Disposition:: Patient was discharged without incident.
== END 2023-09-20 13:50 | disposition home or self-care (01) ==
LOC: SC.PAINP 13:16
PROVIDERS: PCP Nurse Practitioner Family; Visit Provider Nurse Anesthetist, Certified Registered
DX: M47.895 Other spondylosis, thoracolumbar region (principal); M51.15 Intervertebral disc disorders with radiculopathy, thoracolumbar region
CPT/HCPCS: 64490; 64493; J1040

== ENCOUNTER → 2023-10-18 10:39 | Outpatient (POV) | payer MEDICARE, SELFPAY ==
--- NOTE | 2023-10-18 10:52 | EXP.PAIN.SOA ---
[facility] Pain Management SOAP Note Subjective:: This patient is a very pleasant 83-year-old female that comes to our clinic today for follow-up visit after receiving a second round right facet block T12-L1, L1-2. Patient reports 3 to 4 days of complete relief in terms of her overall right thoracolumbar pain. This is the patient's second round of the same block. She had very similar experience with the first round. We discussed radiofrequency ablation of the same levels. She wishes to proceed. Patient's Jim #[id number] has been reviewed and appropriate. Patient describes thoracolumbar right-sided pain as constant, dull, aching. Objective:: Patient is awake alert [place] x 3. In no acute distress. Flexion-extension cervical lumbar spine normal. Deep tendon reflexes upper and lower extremities normal. Motor strength upper and lower extremities normal. There is no gross sensory deficit. Gait is normal. Assessment:: Degenerative disc thoracolumbar spine. Spondylosis thoracolumbar spine. Multilevel thoracolumbar facet arthropathy. Plan:: We will plan for radiofrequency ablation of the right T12-L1, L1-2 facet joints. Discussed in detail with the patient regarding the procedure in detail. She wishes to proceed. [facility] Disclaimer: The information contained in this section may have been updated after the patient was seen, as this information can be updated by other users. Medical History Chronic pain syndrome Crescendo angina Palpitations Family History Other Cancer Coronary artery disease Diabetes Heart attack Hypertension Social History Smoking Status: Former smoker second hand exposure: No alcohol intake: never counseling provided: none substance use type: denies use current occupational status: retired Travel in the last 8 weeks: None household members: none housing: house current occupational exposures/hazards: No
[2023-10-18 10:53] VITALS: BP 138/63; PULSE 71; RESP 18; O2SAT 97; BMI 24.3
== END ==
LOC: SC.PAIN 10:40
PROVIDERS: PCP Nurse Practitioner Family; Visit Provider Nurse Anesthetist, Certified Registered
DX: M51.35 Other intervertebral disc degeneration, thoracolumbar region (principal); M47.815 Spondylosis without myelopathy or radiculopathy, thoracolumbar region
CPT/HCPCS: 99212; G0463

== ENCOUNTER 2023-11-17 12:56 | Outpatient (CLI) | payer MEDICARE, SELFPAY ==
[2023-11-17 13:06] LABS: Microscopic, Urine URINE MICROSCOPIC (MICROSCOPIC)
[2023-11-17 13:27] LABS: Appearance,Urine SL CLOUDY (Clear); Bilirubin,Urine Negative (Negative); Blood, Urine 1+ (Negative); Color,Urine YELLOW (Yellow); Glucose,Urine (UA) 3+ (Negative); Ketones,Urine Negative (Negative); Leukocyte Esterase,Urine 1+ (Negative); Nitrate,Urine POSITIVE (Negative); Protein,Urine 1+ (Negative); Urobilinogen,Urine 0.2 EU/dl (0.2)
[2023-11-17 13:31] LABS: Hematocrit 31.1 % (37.0-47.0); Hemoglobin 11.7 g/dL (12.2-16.2); Mean Corpuscular HGB Conc 37.7 g/dL (31.8-35.4); Mean Corpuscular Hemoglobin 37.4 pg (27.0-31.2); Mean Corpuscular Volume 99.4 fl (81-99); Platelet Count 262 K/mm3 (142-424); Red Blood Count 3.13 M/mm3 (4.20-5.40); Red Cell Distribution Width 13.5 % (11.5-17.5); White Blood Count 7.2 K/mm3 (4.8-10.8)
[2023-11-17 13:43] LABS: RBC,Urine Occasional #/hpf (0-3); WBC,Urine 20-50 #/hpf (0-3)
[2023-11-17 13:44] LABS: Bacteria,Urine 2+ /lpf
[2023-11-17 13:45] LABS: Chloride 108 mmol/L (98-107); Potassium 3.3 mmoL/L (3.5-5.1); Sodium 140 mmol/L (136-145)
[2023-11-17 13:48] LABS: Anion Gap 12.3 mEq/L (5-15); Blood Urea Nitrogen 36 mg/dl (7-17); Carbon Dioxide 23 mmol/L (22.0-30.0); Estimated Glomerular Filt Rate 19 ml/min (>60); GFR (African American) 23 ML/MIN (>60)
[2023-11-17 13:49] LABS: Glucose 143 mg/dl (74-100); Phosphorous 3.6 mg/dl (2.5-4.5)
[2023-11-17 13:54] LABS: Creatinine,Urine Random 72 mg/dL (Not Estab.)
[2023-11-17 14:01] LABS: Intact Parathyroid Hormone 95.5 pg/mL (7.5-53.5)
[2023-11-17 14:06] LABS: 25-OH Vitamin D, Total 75.4 ng/mL (30-100)
== END 2023-11-17 23:59 ==
LOC: LAB 12:58
PROVIDERS: PCP Nurse Practitioner Family; Visit Provider Internal Medicine Nephrology
DX: N18.4 Chronic kidney disease, stage 4 (severe) (principal); E55.9 Vitamin D deficiency, unspecified; B96.1 Klebsiella pneumoniae [K. pneumoniae] as the cause of diseases classified elsewhere; R82.90 Unspecified abnormal findings in urine
CPT/HCPCS: 36415; 80069; 81001; 82306; 82570; 83970; 84155; 85014; 85018; 85048; 85049; 87086

== ENCOUNTER 2023-11-22 12:59 | Day surgery (SDC) | payer MEDICARE, SELFPAY ==
[2023-11-22 13:20] VITALS: BP 152/71; PULSE 63; RESP 18; TEMP 36.3; O2SAT 97; BMI 24.3
[2023-11-22 13:21] VITALS: BP 153/68; PULSE 68; RESP 18; O2SAT 99
[2023-11-22] MEDS: LIDOCAINE 1% 5ML PF VIAL 15 ML (13:26)
[2023-11-22] MEDS: BUPIVACAINE 0.25% 10ML INJ 25 MG IJ (13:26)
[2023-11-22] MEDS: methylPREDNISolone ACETATE 80MG/ML VIAL 80 MG (13:27)
[2023-11-22 13:30] VITALS: BP 129/62; PULSE 56; RESP 18; O2SAT 97
--- NOTE | 2023-11-22 13:31 | P.PCN_ITS ---
Procedure Date: 11/22/23 Time: 13:10 Anesthesiologist:: Yrn Andre CRNA Complications:: None Pre-procedure Diagnosis:: Degenerative disc lumbar spine multiple levels. Lumbar radiculopathy. Degenerative disc thoracic spine multiple levels. Thoracic radiculopathy. Thoracolumbar facet arthropathy. Thoracolumbar spondylosis. Post-procedure Diagnosis:: Same. Indications for Procedure:: This patient is a very pleasant 83-year-old female that has responded very well to previous medial branch blocks/facet injections at the right T12-L1, L1-2 levels. She presents today for radiofrequency ablation. Patient describes her right-sided thoracolumbar pain as constant, dull, aching. She does describe some right side radicular component. Procedure Details:: Informed consent was obtained and the risk and benefits of the procedure was exp lained to the patient. Patient was placed prone on the procedure table. The patient was prepped and draped in sterile fashion. C-arm fluoroscopy was used to view the lumbar spine. The skin and subcutaneous tissues were anesthetized using lidocaine. I placed 20-gauge RF needles into the facet joints of T12-L1, L1-2 on the right side. We underwent sensory stimulation. There is good sensory stimulation at 0.8 V. We underwent motor stimulation. There is no motor stimulation at 2 V. We then anesthetized these levels with lidocaine and Depo- Medrol. I used a total of 40 mg Depo-Medrol for all 3 levels. I then burned both levels on the right at T12-L1, L1-2 for 4 minutes at 80 ?C. Patient tolerated the procedure well with no complication. Plan and Disposition:: Patient was discharged without incident.
== END 2023-11-22 13:30 | disposition home or self-care (01) ==
PROVIDERS: PCP Nurse Practitioner Family; Visit Provider Nurse Anesthetist, Certified Registered
DX: M51.14 Intervertebral disc disorders with radiculopathy, thoracic region; M47.815 Spondylosis without myelopathy or radiculopathy, thoracolumbar region; M51.16 Intervertebral disc disorders with radiculopathy, lumbar region
CPT/HCPCS: 64633; 64635; J1040

== ENCOUNTER 2023-12-02 13:53 | Outpatient (CLI) | payer MEDICARE, SELFPAY ==
[2023-12-02 14:01] LABS: Microscopic, Urine URINE MICROSCOPIC (MICROSCOPIC)
[2023-12-02 14:22] LABS: Hematocrit 36.3 % (37.0-47.0); Hemoglobin 12.1 g/dL (12.2-16.2); Mean Corpuscular HGB Conc 33.2 g/dL (31.8-35.4); Mean Corpuscular Hemoglobin 33.3 pg (27.0-31.2); Mean Corpuscular Volume 100.2 fl (81-99); Platelet Count 367 K/mm3 (142-424); Red Blood Count 3.62 M/mm3 (4.20-5.40); Red Cell Distribution Width 13.2 % (11.5-17.5); White Blood Count 9.7 K/mm3 (4.8-10.8)
[2023-12-02 14:34] LABS: Appearance,Urine CLEAR (Clear); Bilirubin,Urine Negative (Negative); Blood, Urine TRACE-I (Negative); Color,Urine YELLOW (Yellow); Glucose,Urine (UA) 1+ (Negative); Ketones,Urine Negative (Negative); Leukocyte Esterase,Urine 2+ (Negative); Nitrate,Urine Negative (Negative); Protein,Urine Negative (Negative); Specific Gravity, Urine <= 1.005 (1.005-1.030); Urobilinogen,Urine 0.2 EU/dl (0.2)
[2023-12-02 14:47] LABS: Creatinine,Urine Random 14 mg/dL (Not Estab.)
[2023-12-02 14:55] LABS: Bacteria,Urine Trace /lpf; RBC,Urine Occasional #/hpf (0-3); Squamous Epithelial Cell,Urine Occasional #/hpf (0-5)
[2023-12-02 15:12] LABS: Albumin Level 4.3 g/dl (3.5-5.0); Anion Gap 13.1 mEq/L (5-15); Blood Urea Nitrogen 45 mg/dl (7-17); Calcium 9.1 mg/dl (8.4-10.2); Carbon Dioxide 25 mmol/L (22.0-30.0); Chloride 105 mmol/L (98-107); Estimated Glomerular Filt Rate 21 ml/min (>60); GFR (African American) 26 ML/MIN (>60); Glucose 122 mg/dl (74-100); Phosphorous 4.4 mg/dl (2.5-4.5); Potassium 4.1 mmoL/L (3.5-5.1); Sodium 139 mmol/L (136-145)
[2023-12-02 15:21] LABS: Intact Parathyroid Hormone 200.7 pg/mL (7.5-53.5)
[2023-12-02 15:28] LABS: 25-OH Vitamin D, Total 63.9 ng/mL (30-100)
== END 2023-12-02 23:59 ==
LOC: LAB 13:55
PROVIDERS: PCP Nurse Practitioner Family; Visit Provider Internal Medicine Nephrology
DX: N18.4 Chronic kidney disease, stage 4 (severe) (principal); E55.9 Vitamin D deficiency, unspecified; B96.1 Klebsiella pneumoniae [K. pneumoniae] as the cause of diseases classified elsewhere; R82.90 Unspecified abnormal findings in urine
CPT/HCPCS: 36415; 80069; 81001; 82306; 82570; 83970; 84155; 85014; 85018; 85048; 85049; 87086

== ENCOUNTER → 2023-12-09 13:04 | Outpatient (POV) | payer MEDICARE, SELFPAY ==
[2023-12-09 13:29] VITALS: BP 139/64; PULSE 85; RESP 18; O2SAT 97; BMI 24.3
--- NOTE | 2023-12-09 13:47 | A.OFFVIS_ITS ---
[facility] Pain Management SOAP Note Subjective:: Patient is a pleasant 83-year-old female who comes to our clinic for follow-up of the lumbar RFA on 11/22/2023. We are currently treating the patient for degenerative disc disease of thoracic and lumbar spine with thoracic and lumbar radiculopathy, thoracic facet arthropathy and spondylosis. Today she rates her pain 2 out of 10. Patient states that she has had at least 75% improvement in her mid to low back symptoms following his procedure and feels like it is still helping. Patient states she has been able to increase her activity with decreased overall pain symptoms and feels more functional. Patient does state that she did recently have a fall due to stumbling over her daughter's dog however she states she did not feel like she did anything significant such as fractures. Patient does state today that she is experiencing more pain in her neck with limited range of motion. She describes this as an aching, throbbing sensation that is worse with certain movements such as bending or twisting. She denies any radiating symptoms to her arms or hands. Patient states in the past that she has been told she has bone spurs however she has not had recent imaging for years. Patient does state that she typically uses pillows for positioning however this only provides minimal relief. Patient does also state that she has been experiencing some pain into and around her left bowel. She describes this as a throbbing sensation that is worse with prolonged positioning. Her Jim has been reviewed and is appropriate. Review of Systems: General: No recent weight changes, no fever, no sleep disturbances Respiratory: No cough, no shortness of air, no recurring pulmonary infections Cardiovascular/peripheral vascular: No chest pain, no palpitations, no edema, no shortness of breath Gastrointestinal: No new onset incontinence, normal bowel movements reported Genitourinary: No new onset incontinence Musculoskeletal: Neck pain Psychiatric: [Normal mood/affect] Neurological: [Denies weakness in extremities], [denies balance issues] Objective:: Physical Exam: General: Alert and oriented x3, no acute distress, pleasant and cooperative Lungs: Respirations even and unlabored, symmetrical chest expansion Eyes: PERRL Musculoskeletal: Flexion and extension of cervical [spine] somewhat guarded secondary to pain, [antalgic gait noted] positive Kemps test Neurological: Speech clear, no gross sensory deficit Assessment:: Degenerative disc disease of thoracic and lumbar spine with thoracic and lumbar radiculopathy symptoms, thoracic facet arthropathy and spondylosis, neck pain, tailbone pain Plan:: Patient is experiencing worsening pain in her neck with limited range of motion and a positive Kemps test. I have discussed with patient in future she may benefit from a cervical medial branch block however first I will order x-ray and MRI without contrast of her cervical spine. Patient will return to clinic in 1 month for reevaluation of symptoms and plan of care. Patient has been instructed to contact the clinic with any concerns before the next appointment. Dr. Skinner has reviewed this note and agrees with this plan of care. This note was dictated using voice recognition software and make contain errors or omissions. [facility] Disclaimer: The information contained in this section may have been updated after the patient was seen, as this information can be updated by other users. Medical History Chronic pain syndrome Crescendo angina Palpitations Family History Other Cancer Coronary artery disease Diabetes Heart attack Hypertension Social History Smoking Status: Former smoker second hand exposure: No alcohol intake: never counseling provided: none substance use type: denies use current occupational status: retired Travel in the last 8 weeks: None household members: none housing: house current occupational exposures/hazards: No
--- NOTE | 2023-12-09 13:50 | XR_ITS ---
FINAL REPORT CLINICAL HISTORY: NECK PAIN COMPARISON: None FINDINGS: CERVICAL SPINE 5 views were obtained. There is no acute fracture or malalignment. There is moderate degenerative change. There is straightening of the spine likely due to positioning or muscle spasm. There is multilevel bilateral neuroforaminal narrowing of the lower cervical spine. IMPRESSION: Degenerative change without acute process. Reviewed, Interpreted and Dictated by Aftab Hummel III, MD Transcribed by Colleen Ruiz Authenticated and . [facility]
== END ==
PROVIDERS: PCP Nurse Practitioner Family; Visit Provider Nurse Practitioner Family
DX: M51.14 Intervertebral disc disorders with radiculopathy, thoracic region (principal); M51.16 Intervertebral disc disorders with radiculopathy, lumbar region; M47.24 Other spondylosis with radiculopathy, thoracic region; M53.3 Sacrococcygeal disorders, not elsewhere classified; M54.2 Cervicalgia
CPT/HCPCS: 72050; 99212; G0463

== ENCOUNTER 2023-12-20 18:16 | Emergency (ER) | payer MEDICARE, SELFPAY ==
--- NOTE | 2023-12-20 18:20 | ED_ITS ---
Discharge Plan Disposition Patient Disposition: Home, Self-Care Condition: Good Prescriptions Prescriptions: New fluconazole [Diflucan] 100 mg tablet 100 mg PO DAILY 14 Days Qty: 14 0RF No Action cholecalciferol (vitamin D3) 1,000 unit capsule 1,000 unit PO ONCE fexofenadine [Rosanna Allergy] 180 mg tablet 180 mg PO DAILY Farxiga 5 mg tablet 5 mg PO DAILY B-complex with vitamin C Tablet 1 tab PO DAILY rosuvastatin 20 mg tablet 20 mg PO DAILY Qty: 30 5RF losartan 50 mg tablet 25 mg PO DAILY omeprazole 40 mg capsule,delayed release(DR/EC) 40 mg PO QDAY Rx Instructions: swallow whole; do not crush, chew, dissolve, or cut/break famotidine [Pepcid] 20 mg tablet 20 mg PO DAILY metoprolol tartrate 25 mg tablet 25 mg PO BID Referrals Follow up/Referrals: Anna Montalvo APRN [Primary Care Provider] - See instructions Activity Restrictions/Add. Instructions Additional Instructions/Restrictions: Please follow-up with your PCP for recheck or if any worsening symptoms. Clinical Impressions Clinical Impression: Oral thrush Instructions Patient Instructions: DI for Thrush Discharge ED Provider: Mita Nguyen General Adult HPI <CHELSEA Amanda - Last Filed: 12/20/23 18:59> General Chief complaint: PAIN Stated complaint: poss thrush Time Seen by Provider: 12/20/23 18:20 History of Present Illness HPI narrative: Patient presents with a self diagnosis of thrush . Patient states that she has had several episodes over the past few years for unknown reasons. Patient states that she has tried nystatin swish and swallow and it does not work. She says the only thing that works for her is fluconazole taken orally. He does have a PCP and reports that her last hemoglobin A1c was somewhere in the range of 8 but does not know an exact number. Patient denies immunosuppression or recent illness. Patient does wear upper and lower dentures. Patient describes it as pain and soreness in her mouth Related Data Home Medications Medication Instructions Recorded Confirmed cholecalciferol (vitamin D3) 25 1,000 unit PO ONCE Supplement 12/08/17 12/15/23 mcg (1,000 unit) capsule fexofenadine 180 mg tablet 180 mg PO DAILY Allergy symptoms 10/01/20 12/15/23 (Rosanna Allergy) dapagliflozin propanediol 5 mg 5 mg PO DAILY . 07/16/22 12/15/23 tablet (Farxiga) famotidine 20 mg tablet (Pepcid) 20 mg PO DAILY . 06/28/23 12/15/23 metoprolol tartrate 25 mg tablet 25 mg PO BID bp 06/28/23 12/15/23 omeprazole 40 mg capsule,delayed 40 mg PO QDAY gerd 06/28/23 12/15/23 release B-complex with vitamin C 1 tab PO DAILY 10/20/23 12/15/23 losartan 50 mg tablet 25 mg PO DAILY High blood pressure 12/15/23 12/15/23 Previous Rx's Medication Instructions Recorded rosuvastatin 20 mg tablet 20 mg PO DAILY Cholesterol #30 tabs 08/11/23 fluconazole 100 mg tablet 100 mg PO DAILY 14 days #14 tabs 12/20/23 (Diflucan) Allergies Allergy/AdvReac Type Severity Reaction Status Date / Time No Known Allergies Allergy Verified 11/22/23 13:21 [facility] <CHELSEA Amanda - Last Filed: 12/20/23 18:59> [facility] Disclaimer: The information contained in this section may have been updated after the patient was seen, as this information can be updated by other users. Medical History Chronic pain syndrome Crescendo angina Palpitations Family History Other Cancer Coronary artery disease Diabetes Heart attack Hypertension Social History Smoking Status: Never smoker second hand exposure: No alcohol intake: never counseling provided: none substance use type: denies use current occupational status: retired Travel in the last 8 weeks: None household members: none housing: house current occupational exposures/hazards: No <CHELSEA Amanda - Last Filed: 12/20/23 18:59> ROS Obtained: Yes Systems reviewed as appropriate & no additional complaints except as documented Physical Exam <CHELSEA Amanda - Last Filed: 12/20/23 18:59> General General appearance: alert and in no apparent distress Head Head exam: atraumatic and normal inspection Eye Eye exam: Present normal appearance, PERRL and EOMI ENT ENT exam: Present other (Patient has a patch of whitish area on the posterior aspect of the right side base of her tongue. Patient also has some small red satellite lesions scattered throughout her mouth. No vesicles noted.) Neck Neck exam: Present normal inspection, full ROM and trachea midline; Absent lymphadenopathy Chest Chest inspection: Present normal inspection and symmetric chest wall rise Respiratory Respiratory exam: Present normal lung sounds bilaterally Cardiovascular Cardiovascular exam: Present regular rate and normal rhythm Abdominal Exam Abdominal exam: Present soft and normal bowel sounds; Absent tenderness Extremities Exam Extremities exam: Present normal inspection and full ROM Neurological Exam Neurological exam: Present alert and oriented X3 Psychiatric Psychiatric exam: Present normal affect and normal mood Skin Skin exam: Present warm, dry and normal color Lymphatic Lymphatic Findings: no adenopathy Medical Decision Making <CHELSEA Amanda - Last Filed: 12/20/23 18:59> Medical Records Medical records reviewed: Yes I reviewed the patient's medical records. Jim Inquiry Pt receiving controlled substance: No Vital Signs: 12/20/23 18:31 12/20/23 19:04 Temperature 98.4 F 98 F Temperature Source Oral Pulse Rate 79 Pulse Rate [Left] 84 Respiratory Rate 18 18 Blood Pressure 147/83 H Blood Pressure [Right Arm] 151/75 H Blood Pressure Mean [Right Arm] 100 Blood Pressure Source [Right Arm] Automatic Cuff Blood Pressure Position [Right Arm] Sitting 02 Sat by Pulse Oximetry 97 Lab Data Lab results reviewed: Yes I reviewed the patient's lab results. Orders (Tests/Meds): ED MEDICATIONS Discontinued Medications Generic Name Dose Route Start Last Admin Trade Name Freq PRN Reason Stop Dose Admin Tetracycl/Hydrocort/Nystatin/Diphen 15 ml 12/20/23 18:42 12/20/23 18:57 Magic Mouthwash 300ml Bottle PO 12/20/23 18:43 15 ml ONCE ONE Administration Medical Decision Narrative: In summary patient is a 83-year-old female who presents to the emergency department for evaluation of thrush . Patient is hemodynamically stable upon arrival, afebrile. Physical exam is remarkable for a whitish patch on the base of her right tongue along with some small erythematous satellite lesions throughout the mucosa of the mouth without vesicles. Fingerstick blood sugar was 174. Differential diagnosis includes thrush versus other viral oral infection versus hyperglycemia. Initial workup will be conducted with fingerstick blood sugar. Initial interventions include Magic mouthwash. Patient counseled extensively on the need to possibly ascertain the reason for recurrent oral candidiasis. Potential factors include denture hygiene. Patient counseled to follow-up with PCP for any recurrent symptoms and recheck. Patient for shared decision making verbalized understanding and agreed to the plan. Subsequently she was discharged home <Mita Nguyen, DO - Last Filed: 12/20/23 19:53> Vital Signs: 12/20/23 18:31 12/20/23 19:04 Temperature 98.4 F 98 F Temperature Source Oral Pulse Rate 79 Pulse Rate [Left] 84 Respiratory Rate 18 18 Blood Pressure 147/83 H Blood Pressure [Right Arm] 151/75 H Blood Pressure Mean [Right Arm] 100 Blood Pressure Source [Right Arm] Automatic Cuff Blood Pressure Position [Right Arm] Sitting 02 Sat by Pulse Oximetry 97 Orders (Tests/Meds): ED MEDICATIONS Discontinued Medications Generic Name Dose Route Start Last Admin Trade Name Freq PRN Reason Stop Dose Admin Tetracycl/Hydrocort/Nystatin/Diphen 15 ml 12/20/23 18:42 12/20/23 18:57 Magic Mouthwash 300ml Bottle PO 12/20/23 18:43 15 ml ONCE ONE Administration Medical Decision Narrative: In summary patient is a 83-year-old female who presents to the emergency department for evaluation of thrush . Patient is hemodynamically stable upon arrival, afebrile. Physical exam is remarkable for a whitish patch on the base of her right tongue along with some small erythematous satellite lesions throughout the mucosa of the mouth without vesicles. Fingerstick blood sugar was 174. Differential diagnosis includes thrush versus other viral oral infection versus hyperglycemia. Initial workup will be conducted with fingerstick blood sugar. Initial interventions include Magic mouthwash. Patient counseled extensively on the need to possibly ascertain the reason for recurrent oral candidiasis. Potential factors include denture hygiene. Patient counseled to follow-up with PCP for any recurrent symptoms and recheck. Patient for shared decision making verbalized understanding and agreed to the plan. Subsequently she was discharged home I was consulted by the TRAVON, and we discussed the complexity of the problems being addressed. I approved the treatment and management plan for this patient's care in the emergency department, thus performing a substantive portion of the medical decision making. On exam, the patient is clinically well-appearing with very mild case of oropharyngeal thrush. She states that nystatin swish and swallow has never worked for her before, she states she always has to have fluconazole. Given this, oral fluconazole was given. Given that she has had recurrent symptoms, she was given instructions for very close follow-up with her primary care provider to determine the etiology of her developing recurrent thrush. Mita Nguyen, DO Critical Care <CHELSEA Amanda - Last Filed: 12/20/23 18:59> Critical Care Time Critical Care Time: No
[2023-12-20 18:31] VITALS: BP 151/75; PULSE 84; RESP 18; TEMP 36.9; O2SAT 97; BMI 26.5
[2023-12-20] MEDS: MAGIC MOUTHWASH 300ML BOTTLE 15 ML PO (18:57)
[2023-12-20 19:04] VITALS: BP 147/83; PULSE 79; RESP 18; TEMP 36.6
== END 2023-12-20 19:06 | disposition home or self-care (01) ==
PROVIDERS: Emergency Provider Emergency Medicine; PCP Nurse Practitioner Family
DX: B37.0 Candidal stomatitis (principal); I20.9 Angina pectoris, unspecified
CPT/HCPCS: 99283

== ENCOUNTER 2024-01-05 15:20 | Outpatient (POV) | payer MEDICARE, SELFPAY ==
[2024-01-05 15:22] VITALS: BP 137/62; PULSE 80; RESP 18; O2SAT 96; BMI 24.3
--- NOTE | 2024-01-05 15:52 | EXP.PAIN.SOA ---
[facility] Pain Management SOAP Note Subjective:: Patient is a pleasant 83-year-old female who presents today for follow-up of cervical x-ray. Today she rates her pain 3 out of 10. Patient denies any new trauma or injury. She states that she continues to have neck pain. She states that this is worse with certain movements such as bending and twisting. She denies any radiating symptoms to her arms or hands. At our last visit we did order the x-ray and MRI without contrast of her cervical spine. She states she has not yet had her MRI. Her Jim has been reviewed and is appropriate. Review of Systems: General: No recent weight changes, no fever, no sleep disturbances Respiratory: No cough, no shortness of air, no recurring pulmonary infections Cardiovascular/peripheral vascular: No chest pain, no palpitations, no edema, no shortness of breath Gastrointestinal: No new onset incontinence, normal bowel movements reported Genitourinary: No new onset incontinence Musculoskeletal: Neck pain Psychiatric: [Normal mood/affect] Neurological: [Denies weakness in extremities], [denies balance issues] Objective:: Physical Exam: General: Alert and oriented x3, no acute distress, pleasant and cooperative Lungs: Respirations even and unlabored, symmetrical chest expansion Eyes: PERRL Musculoskeletal: Flexion and extension of cervical [spine] somewhat guarded secondary to pain, [antalgic gait noted] Neurological: Speech clear, no gross sensory deficit Assessment:: Degenerative disc disease of cervical, thoracic and lumbar spine with thoracic and lumbar radiculopathy symptoms, thoracic facet arthropathy and spondylosis Plan:: I did review over the x-ray imaging of her cervical spine with moderate degenerative changes and multilevel bilateral neuroforaminal narrowing at the lower cervical spine. We will still proceed forward with the MRI without contrast of her cervical spine. I will order the patient a compounded cream. Patient will return to clinic in 1 month following her MRI imaging for reevaluation of symptoms and plan of care. Patient has been instructed to contact the clinic with any concerns before the next appointment. Dr. Skinner has reviewed this note and agrees with this plan of care. This note was dictated using voice recognition software and make contain errors or omissions. [facility] Disclaimer: The information contained in this section may have been updated after the patient was seen, as this information can be updated by other users. Medical History Chronic pain syndrome Crescendo angina Palpitations Family History Other Cancer Coronary artery disease Diabetes Heart attack Hypertension Social History Smoking Status: Never smoker second hand exposure: No alcohol intake: never counseling provided: none substance use type: denies use current occupational status: retired Travel in the last 8 weeks: None household members: none housing: house current occupational exposures/hazards: No
== END 2024-01-05 23:59 ==
LOC: SC.PAIN 15:20
PROVIDERS: PCP Nurse Practitioner Family; Visit Provider Nurse Practitioner Family
DX: M50.10 Cervical disc disorder with radiculopathy, unspecified cervical region (principal); M51.14 Intervertebral disc disorders with radiculopathy, thoracic region; M51.16 Intervertebral disc disorders with radiculopathy, lumbar region; M47.24 Other spondylosis with radiculopathy, thoracic region
CPT/HCPCS: 99212; G0463

== ENCOUNTER 2024-01-20 12:55 | Outpatient (CLI) | payer MEDICARE, SELFPAY ==
--- NOTE | 2024-01-20 13:00 | MR_ITS ---
FINAL REPORT TECHNIQUE: Multiplanar MR without contrast CLINICAL HISTORY: Chronic NECK PAIN. COMPARISON: None FINDINGS: Limited images of the posterior fossa are unremarkable. Alignment is normal. Cervical spinal cord shows normal signal and contour. There is diffuse disc desiccation and spondylosis. C2-3: Unremarkable C3-4: There is mild left facet arthropathy. C4-5: There is mild annular disc bulge. There is moderate facet arthropathy. There is mild bilateral neuroforaminal narrowing. C5-6: There is endplate hypertrophic change. There is facet arthropathy. There is moderate bilateral neuroforaminal narrowing. C6-7: There is moderate annular disc bulge and spondylosis. There is mild canal stenosis without cord compression. There is moderate to severe bilateral neuroforaminal narrowing. C7-T1: There is mild annular disc bulge. There is mild bilateral neuroforaminal narrowing. IMPRESSION: Degenerative changes most pronounced at C6-C7 with associated calcinosis and neuroforaminal narrowing. Reviewed, Interpreted and Dictated by Becki Mcgarry MD Transcribed by CHELSEA Jameson Authenticated and [facility]
== END 2024-01-20 23:59 ==
LOC: RAD 12:56
PROVIDERS: PCP Nurse Practitioner Family; Visit Provider Nurse Practitioner Family
DX: M54.2 Cervicalgia (principal)
CPT/HCPCS: 72141; 76376

== ENCOUNTER 2024-02-20 11:01 | Outpatient (CLI) | payer MEDICARE, SELFPAY ==
[2024-02-20 11:09] LABS: Microscopic, Urine URINE MICROSCOPIC (MICROSCOPIC)
[2024-02-20 11:34] LABS: Hematocrit 35.6 % (37.0-47.0); Hemoglobin 11.6 g/dL (12.2-16.2); Mean Corpuscular HGB Conc 32.4 g/dL (31.8-35.4); Mean Corpuscular Hemoglobin 32.6 pg (27.0-31.2); Mean Corpuscular Volume 100.6 fl (81-99); Platelet Count 288 K/mm3 (142-424); Red Blood Count 3.54 M/mm3 (4.20-5.40); Red Cell Distribution Width 13.4 % (11.5-17.5); White Blood Count 9.5 K/mm3 (4.8-10.8)
[2024-02-20 11:36] LABS: Appearance,Urine CLEAR (Clear); Bilirubin,Urine Negative (Negative); Blood, Urine 1+ (Negative); Color,Urine YELLOW (Yellow); Glucose,Urine (UA) 3+ (Negative); Ketones,Urine Negative (Negative); Leukocyte Esterase,Urine 1+ (Negative); Nitrate,Urine POSITIVE (Negative); Protein,Urine 1+ (Negative); Urobilinogen,Urine 0.2 EU/dl (0.2)
[2024-02-20 12:13] LABS: Creatinine,Urine Random 51 mg/dL (Not Estab.)
[2024-02-20 12:24] LABS: Bacteria,Urine 1+ /lpf; RBC,Urine Occasional #/hpf (0-3)
[2024-02-20 12:34] LABS: Albumin Level 4.2 g/dl (3.5-5.0); Anion Gap 11.6 mEq/L (5-15); Blood Urea Nitrogen 35 mg/dl (7-17); Calcium 9.5 mg/dl (8.4-10.2); Carbon Dioxide 23 mmol/L (22.0-30.0); Chloride 110 mmol/L (98-107); Estimated Glomerular Filt Rate 19 ml/min (>60); GFR (African American) 23 ML/MIN (>60); Glucose 123 mg/dl (74-100); Phosphorous 4.3 mg/dl (2.5-4.5); Potassium 3.6 mmoL/L (3.5-5.1); Sodium 141 mmol/L (136-145)
== END 2024-02-20 23:59 | disposition home or self-care (01) ==
LOC: LAB 11:03
PROVIDERS: PCP Nurse Practitioner Family; Visit Provider Internal Medicine Nephrology
DX: N18.32 Chronic kidney disease, stage 3b (principal); B96.1 Klebsiella pneumoniae [K. pneumoniae] as the cause of diseases classified elsewhere; R82.90 Unspecified abnormal findings in urine
CPT/HCPCS: 36415; 80069; 81001; 82570; 84156; 85014; 85018; 85048; 85049; 87086

== ENCOUNTER 2024-03-01 11:13 | Outpatient (POV) | payer MEDICARE, SELFPAY ==
[2024-03-01 11:27] VITALS: BP 121/61; PULSE 62; RESP 18; O2SAT 97; BMI 25.0
--- NOTE | 2024-03-01 11:46 | A.OFFVIS_ITS ---
[facility] [place] Pain Management SOAP Note Subjective:: Patient is a pleasant 83-year-old female who presents today for follow-up of cervical MRI. Today she rates her pain a 9 out of 10. Patient denies any new trauma or injury. She does state that she continues to have pain throughout her neck. She states she continues to have trouble with certain movements such as twisting her head [id number]. Patient does state the pain interferes with her ability perform activities of daily living. Patient has tried [id number] medications along with heat and ice and topicals with minimal relief. Patient has had physical therapy in the past and does try and still exercises and stretches at home with minimal relief. Her Jim has been reviewed and is appropriate. Review of Systems: General: No recent weight changes, no fever, no sleep disturbances Respiratory: No cough, no shortness of air, no recurring pulmonary infections Cardiovascular/peripheral vascular: No chest pain, no palpitations, no edema, no shortness of breath Gastrointestinal: No new onset incontinence, normal bowel movements reported Genitourinary: No new onset incontinence Musculoskeletal: Neck pain Psychiatric: [Normal mood/affect] Neurological: [Denies weakness in extremities], [denies balance issues] Objective:: Physical Exam: General: Alert and oriented x3, no acute distress, pleasant and cooperative Lungs: Respirations even and unlabored, symmetrical chest expansion Eyes: PERRL Musculoskeletal: Flexion and extension of cervical [spine] somewhat guarded secondary to pain, [antalgic gait noted] positive Kemps test Neurological: Speech clear, no gross sensory deficit Assessment:: Degenerative disc disease and cervical, thoracic and lumbar spine with thoracic and lumbar radiculopathy symptoms, thoracic and cervical facet arthropathy and spondylosis Plan:: Patient is experiencing continued pain in her neck with limited range of motion and a positive Kemps test. Patient's advanced imaging did show multilevel cervical facet arthropathy and spondylosis. I discussed with patient that she may benefit from a cervical medial branch block. Risk and benefits were discussed with the patient and she would like to proceed forward with this plan of care. Patient is not on any blood thinners. I have discussed with patient if she gets significant relief we will plan on repeating this injection in the f uture with possible RFA at a later date. Patient has tried and failed conservative therapy. Patient will be scheduled for a cervical medial branch block bilaterally C5-C6 and C6-C7. Patient has been instructed to contact the clinic with any concerns before the next appointment. Dr. Skinner has reviewed this note and agrees with this plan of care. This note was dictated using voice recognition software and make contain errors or omissions. [facility] Disclaimer: The information contained in this section may have been updated after the patient was seen, as this information can be updated by other users. Medical History Complex sleep apnea syndrome Palpitations Chronic pain syndrome Crescendo angina Family History Other Cancer Coronary artery disease Diabetes Heart attack Hypertension Social History Smoking Status: Never smoker second hand exposure: No alcohol intake: never counseling provided: none substance use type: denies use current occupational status: other Travel in the last 8 weeks: None household members: none housing: house current occupational exposures/hazards: No
== END 2024-03-01 23:59 | disposition home or self-care (01) ==
PROVIDERS: PCP Nurse Practitioner Family; Visit Provider Nurse Practitioner Family
DX: M47.892 Other spondylosis, cervical region (principal); M50.10 Cervical disc disorder with radiculopathy, unspecified cervical region; M51.14 Intervertebral disc disorders with radiculopathy, thoracic region; M51.16 Intervertebral disc disorders with radiculopathy, lumbar region; M47.24 Other spondylosis with radiculopathy, thoracic region
CPT/HCPCS: 99212; G0463

== ENCOUNTER 2024-03-20 14:36 | Day surgery (SDC) | payer MEDICARE, SELFPAY ==
[2024-03-20 14:53] VITALS: BP 187/74; PULSE 78; RESP 18; TEMP 36.2; O2SAT 98; BMI 25.0
[2024-03-20 15:05] VITALS: BP 160/62; PULSE 64; RESP 18; TEMP 36.8; O2SAT 98
[2024-03-20] MEDS: IOPAMIDOL-200 (41%);10ML VIAL 10 ML IV (15:09)
--- NOTE | 2024-03-20 15:09 | P.PCN_ITS ---
Procedure Date: 03/20/24 Time: 15:00 Anesthesiologist:: Yrn Andre CRNA Complications:: None Pre-procedure Diagnosis:: Degenerative disc cervical spine multilevels. Cervical radiculopathy. Cervical spondylosis. Multilevel cervical facet arthropathy. Post-procedure Diagnosis:: Same. Indications for Procedure:: Patient is a pleasant 83-year-old female comes to our clinic today for bilateral C5-6, C6-7 cervical medial branch blocks/facet injection. Patient reports posterior cervical neck pain with referred pain into bilateral shoulders. She has difficulty with flexion, extension, left and right rotation of the cervical spine. She describes pain in the cervical spine as constant, dull, aching. Procedure Details:: Informed consent was obtained and the risk and benefits of the procedure was explained to the patient. Patient was taken to the procedure room where noninvasive monitors were placed, including noninvasive blood pressure cuff as well as pulse oximeter. The area over the posterior cervical spine was cleansed using chlorhexidine as a cleansing solution. I anesthetized the skin and subcutaneous tissues with 1% Lidocaine. I placed 25 -gauge spinal needles into the facet joint/ medial branches of C5-6, C6-7 bilaterally. Needle placement was confirmed with fluoroscopy. After confirmation of needle placement, each site was injected with 1 mL of 1% lidocaine and 0.25 % Marcaine and 10 mg of Depo- Medrol. A total of 20 mg of depo medrol was used for bilateral medial branch blocks of C5-6, C6-7 bilaterally. Patient tolerated the procedure without difficulty. There were no complications. Plan and Disposition:: She was discharged without incident.
[2024-03-20] MEDS: BUPIVACAINE 0.25% 10ML INJ 25 MG IJ (15:28)
[2024-03-20] MEDS: methylPREDNISolone ACETATE 80MG/ML VIAL 80 MG (15:28)
[2024-03-20] MEDS: LIDOCAINE 1% 5ML PF VIAL 5 ML (15:28)
== END 2024-03-20 15:06 | disposition home or self-care (01) ==
PROVIDERS: PCP Nurse Practitioner Family; Visit Provider Nurse Anesthetist, Certified Registered
DX: M47.892 Other spondylosis, cervical region (principal); M51.16 Intervertebral disc disorders with radiculopathy, lumbar region; M50.10 Cervical disc disorder with radiculopathy, unspecified cervical region
CPT/HCPCS: 64490; 64491; Q9966

== ENCOUNTER 2024-04-11 13:59 | Outpatient (POV) | payer MEDICARE, SELFPAY ==
[2024-04-11 14:08] VITALS: BP 146/76; PULSE 64; RESP 16; O2SAT 98; BMI 23.2
--- NOTE | 2024-04-11 14:28 | A.OFFVIS_ITS ---
[facility] Pain Management SOAP Note Subjective:: Patient is a pleasant 83-year-old female who presents today for her first cervical medial branch block bilaterally C5-C6 and C6-C7 on 03/20/2024. Patient states she has had at least 80% following this injection and only rates her pain today at 1 out of 10. Patient states she has been able to increase her activity with overall decreased pain. Patient does states she feels more functional. She does state that she is still having some mid back pain with standing. She states that she is able to stop and sit down and the pain goes away. Patient is prescribed compounded cream. Her Jim has been reviewed and is appropriate. Review of Systems: General: No recent weight changes, no fever, no sleep disturbances Respiratory: No cough, no shortness of air, no recurring pulmonary infections Cardiovascular/peripheral vascular: No chest pain, no palpitations, no edema, no shortness of breath Gastrointestinal: No new onset incontinence, normal bowel movements reported Genitourinary: No new onset incontinence Musculoskeletal: Mid back pain Psychiatric: [Normal mood/affect] Neurological: [Denies weakness in extremities], [denies balance issues] Objective:: Physical Exam: General: Alert and oriented x3, no acute distress, pleasant and cooperative Lungs: Respirations even and unlabored, symmetrical chest expansion Eyes: PERRL Musculoskeletal: Flexion and extension of thoracic [spine] somewhat guarded secondary to pain, [antalgic gait noted] Neurological: Speech clear, no gross sensory deficit Assessment:: Cervical facet arthropathy, degenerative disc disease of cervical spine, mid back pain Plan:: Patient did have significant relief following her first cervical medial branch block and does not require any additional injection therapy in this location at this time. I did discuss with the patient whether or not if her mid back pain was still manageable at this time. Patient states that overall if she stops and rest it goes away completely. I did recommend for the patient to try her compounded cream on this location. We will follow-up with the patient in 3 months for reevaluation of symptoms and plan of care. Patient has been instructed to contact the clinic with any concerns before the next appointment. Dr. Skinner has reviewed this note and agrees with this plan of care. This note was dictated using voice recognition software and make contain errors or omissions. [facility] Disclaimer: The information contained in this section may have been updated after the patient was seen, as this information can be updated by other users. Medical History Complex sleep apnea syndrome Palpitations Chronic pain syndrome Crescendo angina Family History Other Cancer Coronary artery disease Diabetes Heart attack Hypertension Social History Smoking Status: Never smoker second hand exposure: No alcohol intake: never counseling provided: none substance use type: denies use current occupational status: other Travel in the last 8 weeks: None household members: none housing: house current occupational exposures/hazards: No
== END 2024-04-11 23:59 | disposition home or self-care (01) ==
LOC: SC.PAIN 14:00
PROVIDERS: Visit Provider Nurse Practitioner Family
DX: M47.892 Other spondylosis, cervical region (principal); M50.323 Other cervical disc degeneration at C6-C7 level; M54.6 Pain in thoracic spine
CPT/HCPCS: 99212; G0463

== ENCOUNTER 2024-04-12 08:43 | Outpatient (CLI) | payer MEDICARE, SELFPAY ==
--- NOTE | 2024-04-12 08:51 | CT_ITS ---
FINAL REPORT TECHNIQUE: Axial images through the abdomen and pelvis was performed by computed tomography. Oral contrast was given. This study was performed with techniques to keep radiation doses as low as reasonably achievable (ALARA). Individualized dose reduction techniques using automated exposure control or adjustment of mA and/or kV according to the patient's size were employed. CLINICAL HISTORY: KIDNEY STONES;UTI oral contrast only FINDINGS: Abdomen: There are 4 mm left lower lobe nodules. The right lung base is clear. There is a moderate hiatal hernia. Liver, spleen, pancreas and adrenal glands have a normal CT appearance in their limited unenhanced state. Note is made of cholelithiasis. The kidneys show no stone disease or obstruction. No obvious renal mass is present. No ureteral stones are present. Pelvis: The appendix is normal. Patient is status post hysterectomy. No distal ureteral stones are seen. Bladder is unremarkable. No fluid collection or adenopathy is seen. IMPRESSION: No evidence of upper urinary tract stone disease or obstruction. Nonspecific 4 mm left lower lobe nodules. There is concern for metastatic disease, CT may be considered in 3-6 months. Cholelithiasis without acute gallbladder disease. Reviewed, Interpreted and Dictated by Becki Mcgarry MD Transcribed by Inga Michele Authenticated and [facility]
== END 2024-04-12 23:59 | disposition home or self-care (01) ==
LOC: RAD 08:44
PROVIDERS: PCP Nurse Practitioner Family; Visit Provider Nurse Practitioner Family
DX: N20.0 Calculus of kidney (principal); K57.30 Diverticulosis of large intestine without perforation or abscess without bleeding; R31.29 Other microscopic hematuria; N39.0 Urinary tract infection, site not specified
CPT/HCPCS: 74176

== ENCOUNTER 2024-07-10 12:16 | Outpatient (CLI) | payer MEDICARE, SELFPAY ==
[2024-07-10 12:23] LABS: Microscopic, Urine URINE MICROSCOPIC (MICROSCOPIC)
[2024-07-10 12:40] LABS: Appearance,Urine SL CLOUDY (Clear); Bilirubin,Urine Negative (Negative); Blood, Urine 1+ (Negative); Color,Urine YELLOW (Yellow); Glucose,Urine (UA) 2+ (Negative); Ketones,Urine Negative (Negative); Leukocyte Esterase,Urine TRACE (Negative); Nitrate,Urine POSITIVE (Negative); Protein,Urine 1+ (Negative); Specific Gravity, Urine 1.025 (1.005-1.030); Urobilinogen,Urine 0.2 EU/dl (0.2)
[2024-07-10 12:50] LABS: Creatinine,Urine Random 60 mg/dL (Not Estab.)
[2024-07-10 12:55] LABS: Bacteria,Urine 4+ /lpf; RBC,Urine Occasional #/hpf (0-3); Squamous Epithelial Cell,Urine Occasional #/hpf (0-5); WBC,Urine 20-50 #/hpf (0-3)
[2024-07-10 13:16] LABS: Albumin Level 4.3 g/dl (3.5-5.0); Anion Gap 10.8 mEq/L (5-15); Blood Urea Nitrogen 41 mg/dl (7-17); Carbon Dioxide 22 mmol/L (22.0-30.0); Chloride 112 mmol/L (98-107); Estimated Glomerular Filt Rate 18 ml/min (>60); GFR (African American) 22 ML/MIN (>60); Glucose 135 mg/dl (74-100); Phosphorous 3.7 mg/dl (2.5-4.5); Potassium 3.8 mmoL/L (3.5-5.1); Sodium 141 mmol/L (136-145)
[2024-07-10 15:59] LABS: Basophils % 0.6 % (0.1-2.0); Eosinophils # 0.1 K/mm3 (0.0-0.4); Eosinophils % 1.6 % (0.1-12.0); Hematocrit 37.8 % (37.0-47.0); Hemoglobin 11.7 g/dL (12.2-16.2); Lymphocytes # 1.5 K/mm3 (0.7-4.5); Lymphocytes % 21.3 % (10-50); Mean Corpuscular HGB Conc 30.9 g/dL (31.8-35.4); Mean Corpuscular Hemoglobin 32.3 pg (27.0-31.2); Mean Corpuscular Volume 104.5 fl (81-99); Mean Platelet Volume 7.6 fl (7.4-10.4); Monocytes # 0.4 K/mm3 (0.1-1.0); Neutrophils % 70.6 % (37.0-80.0); Platelet Count 308 K/mm3 (142-424); Red Blood Count 3.61 M/mm3 (4.20-5.40); Red Cell Distribution Width 13.1 % (11.5-17.5)
== END 2024-07-10 23:59 | disposition home or self-care (01) ==
LOC: LAB 12:17
PROVIDERS: PCP Nurse Practitioner Family; Visit Provider Internal Medicine Nephrology
DX: N18.32 Chronic kidney disease, stage 3b (principal); R32 Unspecified urinary incontinence
CPT/HCPCS: 36415; 80069; 81001; 82570; 84156; 85025; 87086; 87088; 87186

== ENCOUNTER 2024-07-12 10:32 | Outpatient (POV) | payer MEDICARE, SELFPAY | END 2024-07-12 23:59 | disposition home or self-care (01) | LOC: SC 10:33 | PROVIDERS: Visit Provider Student in an Organized Health Care Education/Training Program | DX: Z00.00 Encounter for general adult medical examination without abnormal findings (principal) ==

== ENCOUNTER 2024-07-12 12:33 | Outpatient (CLI) | payer MEDICARE, SELFPAY | END 2024-07-12 23:59 | disposition home or self-care (01) | LOC: RT 12:36 | PROVIDERS: PCP Nurse Practitioner Family; Visit Provider Nurse Practitioner Family | DX: R00.2 Palpitations (principal) | CPT/HCPCS: 93225; 93226 ==

== ENCOUNTER 2024-07-19 10:43 | Outpatient (CLI) | payer MEDICARE, SELFPAY ==
[2024-07-19 12:45] LABS: Hemoglobin A1C 7.9 % (4.0-6.0)
== END 2024-07-19 23:59 | disposition home or self-care (01) ==
LOC: LAB 10:45
PROVIDERS: PCP Nurse Practitioner Family; Visit Provider Nurse Practitioner Family
DX: E11.22 Type 2 diabetes mellitus with diabetic chronic kidney disease (principal)
CPT/HCPCS: 36415; 83036

== ENCOUNTER 2024-07-26 12:37 | Outpatient (CLI) | payer MEDICARE, SELFPAY ==
--- NOTE | 2024-07-26 12:41 | CT_ITS ---
FINAL REPORT TECHNIQUE: Axial images were obtained from the lung apex to the mid abdomen by computed tomography. Coronal reformatted images were obtained. This study was performed with techniques to keep radiation doses as low as reasonably achievable, (ALARA). Individualized dose reduction techniques using automated exposure control or adjustment of mA and/or kV according to the patient''s size were employed. CLINICAL HISTORY: CHRONIC COUGH COMPARISON: None FINDINGS: Minimal scarring is noted at the lung bases. There is a moderate hiatal hernia. Calcifications are noted within the right breast parenchyma. The heart size is normal. There is no pericardial or pleural effusion. Limited images of the upper abdomen demonstrate gallstones in the dependent portion of the gallbladder. No suspicious infiltrate or nodule identified. IMPRESSION: Moderate hiatal hernia. Gallstones in the gallbladder. Reviewed, Interpreted and Dictated by Luan Dunbar MD Transcribed by Colleen Ruiz Authenticated and [facility]
== END 2024-07-26 23:59 | disposition home or self-care (01) ==
PROVIDERS: PCP Nurse Practitioner Family; Visit Provider Nurse Practitioner Family
DX: R05.3 Chronic cough (principal); R13.10 Dysphagia, unspecified; R91.8 Other nonspecific abnormal finding of lung field
CPT/HCPCS: 71250

== ENCOUNTER 2024-07-27 07:49 | Outpatient (CLI) | payer MEDICARE, SELFPAY ==
--- NOTE | 2024-07-27 07:53 | FL_ITS ---
FINAL REPORT CLINICAL HISTORY: CHRONIC COUGH, DYSPHAGIA FINDINGS: AIR CONTRAST UPPER GI HISTORY: Chronic cough, dysphagia. TECHNIQUE: The patient ingested thick and thin barium contrast. Effervescent crystals were also administered. Spot and overhead films were performed. A total of 25 images were saved. FINDINGS: There is a prominent cricopharyngeus muscle. Esophageal motility appears normal. There is a moderate sliding-type hiatal hernia. No gastric filling defects are seen. The duodenal bulb and sweep appear unremarkable. There is gastroesophageal reflux to the thoracic inlet. 13 mm barium tablet passes easily through the esophagus. FLUROSCOPY TIME: 1 minute 35 seconds Radiation exposure in Total DAP: 1158.29 uGym2 IMPRESSION: Moderate hiatal hernia with gastroesophageal reflux. Prominent cricopharyngeus muscle. Otherwise, unremarkable upper GI. Reviewed, Interpreted and Dictated by Luan Dunbar MD Transcribed by Missy Wooten PA-C Authenticated and [facility]
[2024-07-27] MEDS: BARIUM SULFATE(LIQUID E-Z-PAQUE);355ML BOTTLE 355 ML PO (08:30)
[2024-07-27] MEDS: E-Z-GASII EFFERVESCENT GRANULES;1PK 1 EACH PO (08:30)
[2024-07-27] MEDS: BARIUM SULFATE (E-Z-HD 340GM);135ML BOTTLE 135 ML PO (08:30)
== END 2024-07-27 23:59 | disposition home or self-care (01) ==
LOC: RAD 07:49
PROVIDERS: PCP Nurse Practitioner Family; Visit Provider Nurse Practitioner Family
DX: R05.3 Chronic cough (principal); R13.10 Dysphagia, unspecified
CPT/HCPCS: 74246

== ENCOUNTER 2024-09-28 11:43 | Outpatient (CLI) | payer MEDICARE, SELFPAY ==
[2024-09-28 11:54] LABS: Microscopic, Urine URINE MICROSCOPIC (MICROSCOPIC)
[2024-09-28 12:23] LABS: Appearance,Urine CLEAR (Clear); Bilirubin,Urine Negative (Negative); Blood, Urine 1+ (Negative); Color,Urine YELLOW (Yellow); Glucose,Urine (UA) 3+ (Negative); Ketones,Urine Negative (Negative); Leukocyte Esterase,Urine TRACE (Negative); Nitrate,Urine POSITIVE (Negative); Protein,Urine 1+ (Negative); Urobilinogen,Urine 0.2 EU/dl (0.2)
[2024-09-28 12:32] LABS: Bacteria,Urine 2+ /lpf; Hematocrit 36.4 % (37.0-47.0); Hemoglobin 11.7 g/dL (12.2-16.2); Mean Corpuscular HGB Conc 32.2 g/dL (31.8-35.4); Mean Corpuscular Hemoglobin 32.6 pg (27.0-31.2); Mean Corpuscular Volume 101.5 fl (81-99); Platelet Count 265 K/mm3 (142-424); Red Blood Count 3.59 M/mm3 (4.20-5.40); Red Cell Distribution Width 13.2 % (11.5-17.5); Squamous Epithelial Cell,Urine Occasional #/hpf (0-5); WBC,Urine 50-100 #/hpf (0-3); White Blood Count 5.2 K/mm3 (4.8-10.8)
[2024-09-28 12:34] LABS: Creatinine,Urine Random 52 mg/dL (Not Estab.)
[2024-09-28 12:39] LABS: Microalbumin/Creatinine Ratio 159.6
[2024-09-28 12:55] LABS: Albumin Level 4.1 g/dl (3.5-5.0); Anion Gap 12.5 mEq/L (5-15); Blood Urea Nitrogen 39 mg/dl (7-17); Carbon Dioxide 21 mmol/L (22.0-30.0); Chloride 111 mmol/L (98-107); Estimated Glomerular Filt Rate 17 ml/min (>60); GFR (African American) 21 ML/MIN (>60); Glucose 175 mg/dl (74-100); Phosphorous 3.4 mg/dl (2.5-4.5); Potassium 3.5 mmoL/L (3.5-5.1); Sodium 141 mmol/L (136-145)
[2024-09-28 13:07] LABS: Intact Parathyroid Hormone 114.2 pg/mL (7.5-53.5)
[2024-09-28 13:12] LABS: 25-OH Vitamin D, Total 78.1 ng/mL (30-100)
[2024-09-29 09:20] LABS: Complement C3 123 mg/dL (82-167)
[2024-10-01 14:24] LABS: Free Kappa Lt Chains 55.6 mg/L (3.3-19.4); Free Lambda Lt Chains 27.8 mg/L (5.7-26.3)
[2024-10-01 18:06] LABS: Albumin 3.7 g/dL (2.9-4.4); Alpha-1-Globulin 0.2 g/dL (0.0-0.4); Gamma Globulin 1.3 g/dL (0.4-1.8); Protein, Total 7.1 g/dL (6.0-8.5)
== END 2024-09-28 23:59 | disposition home or self-care (01) ==
LOC: LAB 11:44
PROVIDERS: PCP Nurse Practitioner Family; Visit Provider Student in an Organized Health Care Education/Training Program
DX: N18.4 Chronic kidney disease, stage 4 (severe) (principal); N39.0 Urinary tract infection, site not specified
CPT/HCPCS: 36415; 80069; 81001; 82043; 82306; 82570; 83883; 83970; 84155; 84156; 84165; 85027; 86161; 87086; 87088; 87186

== ENCOUNTER 2024-10-11 11:37 | Outpatient (POV) | payer MEDICARE, SELFPAY ==
[2024-10-11 11:47] VITALS: BP 119/76; PULSE 71; RESP 14; O2SAT 95; BMI 25.3
--- NOTE | 2024-10-11 12:02 | A.OFFVIS_ITS ---
[facility] Disclaimer: The information contained in this section may have been updated after the patient was seen, as this information can be updated by other users. Medical History Complex sleep apnea syndrome Palpitations Chronic pain syndrome Crescendo angina Surgical History History of cataract surgery S/P complete hysterectomy Family History Other Cancer Coronary artery disease Diabetes Heart attack Hypertension Social History Smoking Status: Never smoker second hand exposure: No alcohol intake: never counseling provided: none substance use type: denies use current occupational status: other Travel in the last 8 weeks: None household members: none housing: house current occupational exposures/hazards: No PM Subjective & Objective Subjective Subjective:: Patient is a pleasant 84-year-old female who presents today for worsening pain. Today she rates her pain an 8 out of 10. She denies any new trauma or injury. She does state that she is having more difficulty with her neck with certain movements such as twisting from [id number] or looking up and down. Patient does also states she has also been experiencing more mid back pain that just started about 2 weeks ago. Patient states that it all started when she went to bend down and started having pain in this location. Patient does state the pain is interfering with her ability perform activities of daily living such as cooking and cleaning. Patient has tried her compounded cream along with oral medication such as Tylenol, heat and ice with minimal relief. Patient has also continued at home stretching exercise for longer than 12 weeks. Patient did previously have her first cervical medial branch block that did provide 80% relief and lasted about 6 months. This injection was done in February and she states it did provide significant improved function. Her Jim has been reviewed and is appropriate. Review of Systems: General: No recent weight changes, no fever, no sleep disturbances Respiratory: No cough, no shortness of air, no recurring pulmonary infections Cardiovascular/peripheral vascular: No chest pain, no palpitations, no edema, no shortness of breath Gastrointestinal: No new onset incontinence, normal bowel movements reported Genitourinary: No new onset incontinence Musculoskeletal: Neck pain, mid back pain Psychiatric: [Normal mood/affect] Neurological: [Denies weakness in extremities], [denies balance issues] Pain at rest (0-10 scale): 8 Objective Objective:: Physical Exam: General: Alert and oriented x3, no acute distress, pleasant and cooperative Lungs: Respirations even and unlabored, symmetrical chest expansion Eyes: PERRL Musculoskeletal: Flexion and extension of cervical [spine] somewhat guarded secondary to pain, [antalgic gait noted] positive Kemps test Neurological: Speech clear, no gross sensory deficit Has patient had previous pain injection?: No Conservative treatment options previously tried: Home exercise plan Length of treatment: Longer than 12 weeks Meds Home Medications and Allergies Home Medications ?Medication ?Instructions ?Recorded ?Confirmed ?Type cholecalciferol (vitamin D3) 25 1,000 unit PO ONCE Supplement 12/08/17 10/11/24 History mcg (1,000 unit) capsule metoprolol tartrate 25 mg tablet 25 mg PO BID bp 06/28/23 10/11/24 History losartan 50 mg tablet 25 mg PO DAILY High blood pressure 12/15/23 10/11/24 History rosuvastatin 20 mg tablet 20 mg PO DAILY Cholesterol #90 tabs 05/23/24 10/11/24 Rx omeprazole 40 mg capsule,delayed 40 mg PO QDAY gerd #90 caps 07/30/24 10/11/24 Rx release dapagliflozin propanediol 10 mg 10 mg PO DAILY 08/09/24 10/11/24 History tablet (Farxiga) nystatin 100,000 unit/mL oral 100,000 ml PO DIRECTED 08/09/24 10/11/24 History suspension vibegron 75 mg tablet (Gemtesa) 75 mg PO DAILY #30 tabs 08/09/24 10/11/24 Rx New Prescriptions to Start Prescriptions: Allergies Allergy/AdvReac Type Severity Reaction Status Date / Time No Known Allergies Allergy Verified 09/27/24 13:56 Assessment and Plan *Assessment and plan (1) Chronic pain syndrome: Status: Acute Category: Medical Code(s): G89.4 - Chronic pain syndrome (2) Chronic lower back pain: Status: Chronic Qualifiers: Back pain laterality: unspecified Sciatica presence: unspecified whether sciatica present Qualified Code(s): M54.5 - Low back pain; G89.29 - Other chronic pain Category: Medical Code(s): M54.50 - Low back pain, unspecified; G89.29 - Other chronic pain (3) Neck pain: Status: Acute Category: Medical Code(s): M54.2 - Cervicalgia (4) Degenerative disc disease, cervical: Status: Acute Category: Medical Code(s): M50.30 - Other cervical disc degeneration, unspecified cervical region (5) Facet arthropathy, cervical: Status: Acute Category: Medical Code(s): M47.812 - Spondylosis without myelopathy or radiculopathy, cervical region Plan Patient is experiencing worsening pain in her neck with limited range of motion and a positive Kemps test. I did discuss with the patient that I do believe she would benefit from her second cervical medial branch block. Risk and benefits were discussed with patient and she would like to proceed forward with this plan of care. Patient is not on any blood thinners. Patient has tried and failed conservative therapy including continued at home stretching exercise for longer than 12 weeks between injections. Patient did have her first cervical medial branch block back on the March 20 that did provide 80% relief and has lasted nearly 6 months. Patient did have improved function and was able to do more and had better range of motion with this procedure. Patient will be scheduled for her second cervical medial branch block bilaterally C5-C6 and C6-C7 under fluoroscopy. If she does get significant relief again we will look at proceeding forward with an RFA at a later date. I did world travel counselor the patient due to the mid back pain just starting about 2 weeks ago we will send in a 14-day supply of 5 mg baclofen 3 times daily. Patient was recommended to continue to use her compounded cream on this area and we will follow-up after her medial br anch block. Patient agrees with this plan of care. Patient has been instructed to contact the clinic with any concerns before the next appointment. Dr. Skinner has reviewed this note and agrees with this plan of care. This note was dictated using voice recognition software and make contain errors or omissions. All injections are used with Lidocaine, Bupivacaine and Depo Medrol. Occasionally urine drug screen is needed to verify patient's compliance with our office pain contract. This is ordered based off specific treatments related to chronic pain with the potential to abuse certain medications.
== END 2024-10-11 23:59 | disposition home or self-care (01) ==
PROVIDERS: PCP Nurse Practitioner Family; Visit Provider Nurse Practitioner Family
DX: G89.4 Chronic pain syndrome (principal); M50.30 Other cervical disc degeneration, unspecified cervical region; M47.812 Spondylosis without myelopathy or radiculopathy, cervical region; Z73.89 Other problems related to life management difficulty; M54.50 Low back pain, unspecified
CPT/HCPCS: 99212; G0463

== ENCOUNTER 2025-02-05 09:32 | Day surgery (SDC) | payer MEDICARE, SELFPAY ==
[2025-02-05 09:49] VITALS: BP 106/52; PULSE 60; RESP 16; TEMP 36.6; O2SAT 100; BMI 25.8
[2025-02-05] MEDS: IOPAMIDOL-200 (41%);10ML VIAL 10 ML IV (09:59)
[2025-02-05 10:02] VITALS: BP 126/60; PULSE 62; RESP 16; TEMP 36.6; O2SAT 98
--- NOTE | 2025-02-05 10:14 | P.PCN_ITS ---
Procedure Date: 02/05/25 Time: 09:45 Anesthesiologist:: Yrn Andre CRNA Complications:: None Pre-procedure Diagnosis:: Degenerative disc cervical spine multilevels. Cervical radiculopathy. Cervical spondylosis. Multilevel cervical facet arthropathy. Post-procedure Diagnosis:: Same. Indications for Procedure:: Patient very pleasant 84-year-old female who comes our clinic today for ROUND TWO of bilateral cervical C5-6, C6-7 facet blocks/medial branch block. Patient describes several weeks of relief with round one of the same injection. She describes cervical neck pain as constant, dull, aching. She reports difficulty with cervical flexion, extension, left and right rotation. She rates her pain 7/10. Procedure Details:: Informed consent was obtained and the risk and benefits of the procedure was explained to the patient. Patient was taken to the procedure room where noninvasive monitors were placed, including noninvasive blood pressure cuff as well as pulse oximeter. The area over the posterior cervical spine was cleansed using chlorhexidine as a cleansing solution. I anesthetized the skin and subcutaneous tissues with 1% Lidocaine. I placed 25 -gauge spinal needles into the facet joint/ medial branches of C5-6, C6-7 bilaterally. Needle placement was confirmed with fluoroscopy. After confirmation of needle placement, each site was injected with 1 mL of 1% lidocaine and 0.25 % Marcaine and 10 mg of Depo- Medrol. A total of 20 mg of depo medrol was used for bilateral medial branch blocks of C5-6, C6-7 bilaterally. Patient tolerated the procedure without difficulty. There were no complications. Plan and Disposition:: Patient was discharged without incident.
[2025-02-05] MEDS: methylPREDNISolone ACETATE 80MG/ML VIAL 80 MG (10:17)
[2025-02-05] MEDS: BUPIVACAINE 0.25% 10ML INJ 25 MG IJ (10:17)
[2025-02-05 10:18] VITALS: BP 106/52; PULSE 60; RESP 18; O2SAT 100
[2025-02-05] MEDS: LIDOCAINE 1% 5ML PF VIAL 5 ML (10:18)
[2025-02-05 10:20] VITALS: BP 106/52; PULSE 60; RESP 18; O2SAT 100
== END 2025-02-05 10:02 | disposition home or self-care (01) ==
PROVIDERS: PCP Nurse Practitioner Family; Visit Provider Nurse Anesthetist, Certified Registered
DX: M47.812 Spondylosis without myelopathy or radiculopathy, cervical region (principal); M50.30 Other cervical disc degeneration, unspecified cervical region
CPT/HCPCS: 64490; 64491; J1010; Q9966

== ENCOUNTER 2025-02-18 10:49 | Outpatient (POV) | payer MEDICARE, SELFPAY ==
[2025-02-18 10:57] VITALS: BP 100/57; PULSE 58; RESP 16; O2SAT 97; BMI 25.8
--- NOTE | 2025-02-18 11:02 | EXP.PAIN.SOA ---
[facility] Disclaimer: The information contained in this section may have been updated after the patient was seen, as this information can be updated by other users. Medical History Complex sleep apnea syndrome Palpitations Chronic pain syndrome Crescendo angina Surgical History History of cataract surgery S/P complete hysterectomy Family History Other Cancer Coronary artery disease Diabetes Heart attack Hypertension Social History Smoking Status: Never smoker second hand exposure: No alcohol intake: never counseling provided: none substance use type: denies use current occupational status: other Travel in the last 8 weeks: None household members: none housing: house current occupational exposures/hazards: No PM Subjective & Objective Subjective Subjective:: Patient is a pleasant 84-year-old female who presents today for follow-up of her second lumbar medial branch block bilaterally C5-C6 and C6-C7 on 02/05/2025. Today she rates her pain a 2 out of 10. She states she has had at least 90% improvement and feels like it is working well. Patient does state that it was fairly immediate when she did not notice the improvement and has been able to do more activities overall. Patient did try the baclofen that we sent in last, 5 mg however stated that it did seem to make her nauseous so she discontinued this. Patient does use the compounded cream and states it does help as well. Patient does state really overall she is doing exceptional the only thing she notices more bothersome is where she is doing certain activities like doing the dishes and she is leaned over a little bit more and it does cause some low back pain. Her Jim has been reviewed and is appropriate. Review of Systems: General: No recent weight changes, no fever, no sleep disturbances Respiratory: No cough, no shortness of air, no recurring pulmonary infections Cardiovascular/peripheral vascular: No chest pain, no palpitations, no edema, no shortness of breath Gastrointestinal: No new onset incontinence, normal bowel movements reported Genitourinary: No new onset incontinence Musculoskeletal: Neck pain Psychiatric: [Normal mood/affect] Neurological: [Denies weakness in extremities], [denies balance issues] Pain at rest (0-10 scale): 2 Objective Objective:: Physical Exam: General: Alert and oriented x3, no acute distress, pleasant and cooperative Lungs: Respirations even and unlabored, symmetrical chest expansion Eyes: PERRL Musculoskeletal: Flexion and extension of cervical [spine] somewhat guarded secondary to pain, [antalgic gait noted] Neurological: Speech clear, no gross sensory deficit Has patient had previous pain injection?: Yes Percent improvement in pain since last injection: 90% Conservative treatment options previously tried: Home exercise plan Length of treatment: Longer than 12 weeks Meds Home Medications and Allergies Home Medications ?Medication ?Instructions ?Recorded ?Confirmed ?Type cholecalciferol (vitamin D3) 25 1,000 unit PO ONCE Supplement 12/08/17 02/18/25 History mcg (1,000 unit) capsule metoprolol tartrate 25 mg tablet 25 mg PO BID bp 06/28/23 02/18/25 History losartan 50 mg tablet 25 mg PO DAILY High blood pressure 12/15/23 02/18/25 History omeprazole 40 mg capsule,delayed 40 mg PO QDAY gerd #90 caps 07/30/24 02/18/25 Rx release dapagliflozin propanediol 10 mg 10 mg PO DAILY 08/09/24 02/18/25 History tablet (Farxiga) nystatin 100,000 unit/mL oral 100,000 ml PO DIRECTED 08/09/24 02/18/25 History suspension vibegron 75 mg tablet (Gemtesa) 75 mg PO DAILY #30 tabs 08/09/24 02/18/25 Rx baclofen 5 mg tablet 5 mg PO TID #42 tabs 10/11/24 02/18/25 Rx rosuvastatin 20 mg tablet 20 mg PO DAILY Cholesterol #90 tabs 10/18/24 02/18/25 Rx New Prescriptions to Start Prescriptions: Allergies Allergy/AdvReac Type Severity Reaction Status Date / Time No Known Allergies Allergy Verified 10/18/24 13:16 Assessment and Plan *Assessment and plan (1) Facet arthropathy, cervical: Status: Acute Category: Medical Code(s): M47.812 - Spondylosis without myelopathy or radiculopathy, cervical region (2) Degenerative disc disease, cervical: Status: Acute Category: Medical Code(s): M50.30 - Other cervical disc degeneration, unspecified cervical region Plan Patient has had her second diagnostic cervical medial branch block with significant improvement at 90%. I did discuss with the patient in future when the pain does start to return we will plan on proceeding forward with an RFA. Patient will return to clinic in 1 month. Patient has been instructed to contact the clinic with any concerns before the next appointment. Dr. Skinner has reviewed this note and agrees with this plan of care. This note was dictated using voice recognition software and make contain errors or omissions. All injections are used with Lidocaine, Bupivacaine and dexamethasone. Occasionally urine drug screen is needed to verify patient's compliance with our office pain contract. This is ordered based off specific treatments related to chronic pain with the potential to abuse certain medications.
== END 2025-02-18 23:59 | disposition home or self-care (01) ==
LOC: SC.PAIN 10:50
PROVIDERS: PCP Nurse Practitioner Family; Visit Provider Nurse Practitioner Family
DX: M47.812 Spondylosis without myelopathy or radiculopathy, cervical region (principal); M50.30 Other cervical disc degeneration, unspecified cervical region
CPT/HCPCS: 99212; G0463

== ENCOUNTER 2025-03-14 13:15 | Outpatient (CLI) | payer MEDICARE, SELFPAY ==
[2025-03-14 13:35] LABS: Microscopic, Urine URINE MICROSCOPIC (MICROSCOPIC)
[2025-03-14 14:34] LABS: Appearance,Urine CLEAR (Clear); Bilirubin,Urine Negative (Negative); Blood, Urine 1+ (Negative); Color,Urine YELLOW (Yellow); Glucose,Urine (UA) 2+ (Negative); Hematocrit 36.8 % (37.0-47.0); Hemoglobin 11.8 g/dL (12.2-16.2); Ketones,Urine Negative (Negative); Leukocyte Esterase,Urine Negative (Negative); Mean Corpuscular HGB Conc 32.1 g/dL (31.8-35.4); Mean Corpuscular Hemoglobin 32.2 pg (27.0-31.2); Mean Corpuscular Volume 100.5 fl (81-99); Nitrate,Urine Negative (Negative); Nucleated Red Blood Cells # 0 10^3/uL; Nucleated Red Blood Cells % 0 %; Platelet Count 325 K/mm3 (142-424); Protein,Urine 1+ (Negative); Red Blood Count 3.66 M/mm3 (4.20-5.40); Red Cell Distribution Width 12.6 % (11.5-17.5); Red Cell Distribution Width-SD 46.5 fL; Specific Gravity, Urine 1.015 (1.005-1.030); Urobilinogen,Urine 0.2 EU/dl (0.2)
[2025-03-14 14:47] LABS: Microalbumin/Creatinine Ratio 167.6
[2025-03-14 14:56] LABS: Albumin Level 4.5 g/dl (3.5-5.0); Anion Gap 12.2 mEq/L (5-15); Blood Urea Nitrogen 44 mg/dl (7-17); Calcium 9.1 mg/dl (8.4-10.2); Carbon Dioxide 23 mmol/L (22.0-30.0); Chloride 108 mmol/L (98-107); Estimated Glomerular Filt Rate 19 ml/min (>60); GFR (African American) 23 ML/MIN (>60); Glucose 113 mg/dl (74-100); Phosphorous 3.3 mg/dl (2.5-4.5); Potassium 4.2 mmoL/L (3.5-5.1); Sodium 139 mmol/L (136-145)
[2025-03-14 15:01] LABS: Bacteria,Urine 4+ /lpf; RBC,Urine Occasional #/hpf (0-3); Squamous Epithelial Cell,Urine Occasional #/hpf (0-5)
[2025-03-14 15:02] LABS: Creatinine,Urine Random 38 mg/dL (Not Estab.)
[2025-03-14 15:09] LABS: Intact Parathyroid Hormone 101.4 pg/mL (7.5-53.5)
[2025-03-14 15:13] LABS: 25-OH Vitamin D, Total 78.1 ng/mL (30-100)
[2025-03-15 08:13] LABS: Complement C3 141 mg/dL (82-167)
[2025-03-15 16:12] LABS: Albumin 3.7 g/dL (2.9-4.4); Alpha-1-Globulin 0.3 g/dL (0.0-0.4); Alpha-2-Globulin 1.1 g/dL (0.4-1.0); Gamma Globulin 1.4 g/dL (0.4-1.8); Protein, Total 7.6 g/dL (6.0-8.5)
[2025-03-15 18:10] LABS: Free Lambda Lt Chains 29.4 mg/L (5.7-26.3)
[2025-03-19 16:12] LABS: PDF SCANNED IMAGE
== END 2025-03-14 23:59 | disposition home or self-care (01) ==
LOC: LAB 13:16
PROVIDERS: PCP Nurse Practitioner Family; Visit Provider Student in an Organized Health Care Education/Training Program
DX: N18.4 Chronic kidney disease, stage 4 (severe) (principal)
CPT/HCPCS: 36415; 80069; 81001; 82043; 82306; 82570; 83883; 83970; 84155; 84156; 84165; 85027; 86161; 87086; 87088; 87186

== ENCOUNTER 2025-07-18 15:00 | Outpatient (RCR) | payer MEDICARE, SELFPAY ==
--- NOTE | 2025-06-28 11:00 | HMH.PTOPEV ---
PT Evaluation Rehab PT Outpatient Evaluation Start: 06/27/25 15:01 Freq: Status: Active Protocol: Document 06/27/25 15:01 [email or web address] (Rec: 06/27/25 15:55 [email or web address] [id number]) E-signed By Alison Long, PT Outpatient Therapy Subjective History Subjective History This is an initial PT evaluation for 84 y/o female, Sharmila Juares, who presents to PT with referral for LE weakness. Pt reports she noticed increased generalized weakness ~6 months ago. Pt reports difficulty standing from a chair without UE support. Pt reports difficulty with stair negotiation and negotiating uneven surfaces. Pt does report balance concerns as well. Pt reports one [place] Pt owns a cane but does not use it. PMH: LBP, tachycardia Pt's goal for physical therapy is to get up and go. New diagnosis of No cancer in past 12 months? Chief Complaint Gives out/Unstable,Weakness Symptoms Relieved By Rest/Positioning Prior Functional None Limitations Current Functional Standing,Walking,Stairs,Balance Limitations Hip/Knee Eval Gait Observation General Gait Pattern Narrow Based Gait Observation Assistive Device Assistive Devices None / NA MMT right Hip Flexion Strength 3+ Fair+ Grade Hip Abduction 4- Good- Strength Grade Hip Adduction 4- Good- Strength Grade Hip Extension 4- Good- Strength Grade Knee Extension 4 Good Strength Grade Knee Flexion 4- Good- Strength Grade left Hip Flexion Strength 3+ Fair+ Grade Hip Abduction 4- Good- Strength Grade Hip Adduction 4- Good- Strength Grade Hip Extension 4- Good- Strength Grade Knee Extension 4 Good Strength Grade Knee Flexion 4 Good Strength Grade Dynamic Gait Index Test Protocol Gait Level Surface Mild Impairment Query Text: Instructions: Walk at your normal speed from here to the next susana (20'). Grading: Susana the lowest category that applies. Change in Gait Speed Moderate Impairment Query Text: Instructions: Begin walking at your normal pace (for 5') , when I tell you go , walk as fast as you can (for 5'). When I tell you slow , walk as slowly as you can ( for 5'). Grading: Susana the lowest category that applies. Gait with Horizontal Moderate Impairment Head Turns Query Text: Instructions: Begin walking at your normal pace. When I tell you to look right , keep walking straight, but turn you head to the right. Keep looking to the right unit I tell you look left , then keep walking straight and turn your head to the left. Keep your head to the left until I tell you look straight , then keep walking straight, but return you head to the center. Grading: Susana the lowest category that applies. Gait with Vertical Moderate Impairment Head Turns Query Text: Instructions: Begin walking at your normal pace. When I tell you to look up , keep walking staight, but tip your head up. Keep looking up until I tell you to look down , then keep walking straight and tip your head down. Keep your head down until I tell you look straight , then keep walking straight, but return your head to the center. Grading: Ssuana the lowest category that applies. Gait and Pivot Turn Moderate Impairment Query Text: Instructions: Begin walking at your normal pace. When I tell you turn and stop , turn as quickly as you can to face the opposite direction and stop. Grading: Susana the lowest category that applies. Step Over Obstacle Moderate Impairment Query Text: Instructions: Begin walking at your normal speed. When you come to the shoebox, step over it, not around it and keep walking. Grading: Susana the lowest category that applies. Step Around Moderate Impairment Obstacles Query Text: Instructions: Begin walking at normal speed. When you come to the first cone (about 6' away) , walk around the right side of it. When you come to the second cone (6' past first cone), walk around it to the left. Grading: Susana the lowest category that applies. Steps Moderate Impairment Query Text: Instructions: Walk up these stairs as you would at home. At the top, turn around and walk down . Grading: Susana the lowest category that applies. Scoring Dynamic Gait Index 9 Score Lower Extremity Functional Index Activities Today, do you or would you have any difficulty at all with: a.Any of your usual A little bit of difficulty work, housework or school activities b. Your usual No difficulty hobbies, recreational or sporting activities c. Getting into or No difficulty out of the bath d. Walking between No difficulty rooms e. Putting on your A little bit of difficulty shoes or socks f. Squatting No difficulty g. Lifting an object A little bit of difficulty , like a bag of groceries from the floor h. Performing light A little bit of difficulty activities around your home i. Performing heavy No difficulty activities around your home j. Getting into or No difficulty out of a car k. Walking 2 blocks A little bit of difficulty l. Walking a mile Quite a bit of difficulty m. Going up or down Moderate difficulty 10 stairs (about 1 flight of stairs) n. Standing for 1 Quite a bit of difficulty hour o. Sitting for 1 No difficulty hour p. Running on even Extreme difficulty or unable to perform activity ground q. Running on uneven Extreme difficulty or unable to perform activity ground r. Making sharp Extreme difficulty or unable to perform activity turns while running fast s. Hopping Moderate difficulty t. Rolling over in No difficulty bed LEFI Score Lower Extremity 53 Functional Index Score Miscellaneous Dx PT Eval Objective Objective TU seconds with no AD with UE use. 5 x STS: 12.30 seconds with UE use. Outpatient Therapy Assessment Impairments Problems/ Impaired Strength,Impaired Endurance,Impaired Transfers Impairmments ,Impaired Gait Pattern,Impaired Walking,Impaired Standing,Impaired Stepping on Uneven Surface,Impaired Squatting,Impaired Recreational Activities,Impaired Running,Impaired Balance,Impaired DGI Score,Impaired TUG Time Prognosis Rehab Potential Good Comment Pt presents with impaired BLE strength and impaired balance. Pt would benefit from skilled OP PT 2x weekly for 6-8 weeks to address deficits. Clinical Impression Consistent with Yes Diagnosis PT Patient Goals PT Patient Goals PT Short Term In 4 weeks, pt will: Patient Goals 1) Verbalize adherence to HEP 2) Improve BLE strength by 1/5 grade MMT 3) Tolerate one 10 min moderate intensity endurance task (ex: bike) 4) Improve LEFS score to 55/80 to improve BLE function. 5) Improve 5 x STS to 11 seconds to improve functional endurance and strength. 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 3) Tolerate one 10 min moderate intensity endurance task (ex: bike) 4) Improve LEFS score to 60/80 to improve IRMA functioning. 5) Improve TUG score to <12 seconds to decrease fall risk 6) Improve DGI to score of 14 to decrease fall risk. Outpatient Therapy Plan of Care Treatment Plan May Include Therapeutic Exercise Yes Including Home Exercise Program Neuromuscular Re- Yes education Therapeutic Yes Activities to Return to Previous Functional/Work Level Gait Training Yes ADL/Self Care Yes Education Group Therapy for Yes Medicare Eval/Re-Eval Yes Frequency Times per week 2x weekly Duration Number of Weeks 5-6 weeks Addendums This patient is a No candidate for social or vocational rehab ? Patient/Guardian Yes verbally acknowledges understanding of treatment program and consents to further treatment? Patient/Guardian Yes verbally acknowledges understanding of diagnosis, prognosis and goals for treatment? Eval Complexity PT Charges 17996 - Moderate Complexity Shoulder/Elbow Eval Shoulder Objective Measurements Elbow Objective Measurements PHYSICIAN CERTIFICATION: I certify the specified therapy services for Sharmila Juares are required, authorized, and reviewed every 30 days.
== END 2025-07-18 23:59 | disposition home or self-care (01) ==
LOC: PT 15:00
PROVIDERS: PCP Nurse Practitioner Family; Visit Provider Nurse Practitioner Family
DX: R29.898 Other symptoms and signs involving the musculoskeletal system (principal)
CPT/HCPCS: 97110; 97162; 97530

== ENCOUNTER 2025-08-15 11:00 | Outpatient (RCR) | payer MEDICARE, SELFPAY ==
--- NOTE | 2025-08-02 12:14 | HMH.RHREAS ---
Rehab Reassessment Rehab OP Re-assessment Start: 08/02/25 10:07 Freq: Status: Active Protocol: Document 08/02/25 10:09 [email or web address] (Rec: 08/02/25 12:13 [email or web address] [id number]) E-signed By Alison Long PT Dynamic Gait Index Test Protocol Gait Level Surface Mild Impairment Query Text: Instructions: Walk at your normal speed from here to the next susana (20'). Grading: Susana the lowest category that applies. Change in Gait Speed Moderate Impairment Query Text: Instructions: Begin walking at your normal pace (for 5') , when I tell you go , walk as fast as you can (for 5'). When I tell you slow , walk as slowly as you can ( for 5'). Grading: Susana the lowest category that applies. Gait with Horizontal Moderate Impairment Head Turns Query Text: Instructions: Begin walking at your normal pace. When I tell you to look right , keep walking straight, but turn you head to the right. Keep looking to the right unit I tell you look left , then keep walking straight and turn your head to the left. Keep your head to the left until I tell you look straight , then keep walking straight, but return you head to the center. Grading: Susana the lowest category that applies. Gait with Vertical Moderate Impairment Head Turns Query Text: Instructions: Begin walking at your normal pace. When I tell you to look up , keep walking staight, but tip your head up. Keep looking up until I tell you to look down , then keep walking straight and tip your head down. Keep your head down until I tell you look straight , then keep walking straight, but return your head to the center. Grading: Susana the lowest category that applies. Gait and Pivot Turn Moderate Impairment Query Text: Instructions: Begin walking at your normal pace. When I tell you turn and stop , turn as quickly as you can to face the opposite direction and stop. Grading: Susana the lowest category that applies. Step Over Obstacle Moderate Impairment Query Text: Instructions: Begin walking at your normal speed. When you come to the shoebox, step over it, not around it and keep walking. Grading: Susana the lowest category that applies. Step Around Moderate Impairment Obstacles Query Text: Instructions: Begin walking at normal speed. When you come to the first cone (about 6' away) , walk around the right side of it. When you come to the second cone (6' past first cone), walk around it to the left. Grading: Susana the lowest category that applies. Steps Moderate Impairment Query Text: Instructions: Walk up these stairs as you would at home. At the top, turn around and walk down . Grading: Susana the lowest category that applies. Scoring Dynamic Gait Index 9 Score Lower Extremity Functional Index Activities Today, do you or would you have any difficulty at all with: a.Any of your usual Moderate difficulty work, housework or school activities b. Your usual No difficulty hobbies, recreational or sporting activities c. Getting into or A little bit of difficulty out of the bath d. Walking between Moderate difficulty rooms e. Putting on your No difficulty shoes or socks f. Squatting Moderate difficulty g. Lifting an object A little bit of difficulty , like a bag of groceries from the floor h. Performing light Moderate difficulty activities around your home i. Performing heavy Moderate difficulty activities around your home j. Getting into or Moderate difficulty out of a car k. Walking 2 blocks Quite a bit of difficulty l. Walking a mile Extreme difficulty or unable to perform activity m. Going up or down Moderate difficulty 10 stairs (about 1 flight of stairs) n. Standing for 1 Moderate difficulty hour o. Sitting for 1 No difficulty hour p. Running on even Quite a bit of difficulty ground q. Running on uneven Moderate difficulty ground r. Making sharp Moderate difficulty turns while running fast s. Hopping A little bit of difficulty t. Rolling over in A little bit of difficulty bed LEFI Score Lower Extremity 46 Functional Index Score Rehab Re-assessment Subjective Subjective Pt reports she feels 98% better since IE HEP compliance: I do them No falls reported in the past month. Objective Objective Notes TU (13 seconds with no AD with UE use at IE) 5 x STS: 12 (12.30 seconds with UE use). LEFS: 46/80 DGI: 9 BLE MMTs: Hip FLEX = 3+/4 Hip ABD = 4/5 Hip ADD = 4/5 Knee FLEX = 4/5 Knee EXT = 4/5 Assessment Progress Assessment Slower Than Expected Assessment Notes This is a reassessment for Sharmila Juares who presents to PT for c/o BLE weakness and balance deficits. Since IE, pt has been seen for 1 treatment session since initial evaluation 36 days ago. Pt still presents with impairments noted upon evaluation. Pt would to benefit from skilled outpatient physical therapy to address remaining deficits and achieve LTGs. PT Patient Goals PT Short Term In 4 weeks, pt will: Patient Goals 1) Verbalize adherence to HEP: MET 2) Improve BLE strength by 1/5 grade MMT: not met 3) Tolerate one 10 min moderate intensity endurance task (ex: bike): MET 4) Improve LEFS score to 55/80 to improve BLE function: Not met 5) Improve 5 x STS to 11 seconds to improve functional endurance and strength: not met PT Alf Patient In 8 weeks, pt will: (Not met): Goals 1) Verbalize adherence to HEP 2) Improve BLE strength to 5/5 MTT grade globally to improve BLE functioning. 3) Tolerate one 10 min moderate intensity endurance task (ex: bike) 4) Improve LEFS score to 60/80 to improve IRMA functioning. 5) Improve TUG score to <12 seconds to decrease fall risk 6) Improve DGI to score of 14 to decrease fall risk. Plan Plan Continue current POC Frequency of Therapy 2x Duration of Therapy 3-4 weeks Time and Billing Re-Eval Time 10 Re-Eval Billing 0 Units Charge for PT No reassessment? PHYSICIAN CERTIFICATION: I certify the specified therapy services for Sharmila Juares are required, authorized, and reviewed every 30 days.
== END 2025-08-15 23:59 | disposition home or self-care (01) ==
LOC: PT 11:00
PROVIDERS: PCP Nurse Practitioner Family; Visit Provider Nurse Practitioner Family
DX: R29.898 Other symptoms and signs involving the musculoskeletal system (principal)
CPT/HCPCS: 97110; 97112; 97530

== ENCOUNTER 2025-09-12 14:52 | Outpatient (CLI) | payer MEDICARE, SELFPAY ==
--- OUTSIDE RECORDS SUMMARY | 2013-11-12 04:20 | XMS_ITS | Continuity of Care Document ---
Author Organization [facility] Address [address] [place] [address] Phone Care Team Providers Care Partition Notcher Name Role Phone Oli Cazares MD Unavailable Unavailable Allergies, Adverse Reactions, Alerts Substance Reaction Status Criticality No Known allergies Medications Medication Instructions Dosage Dose Quantity Effective Dates (start - stop) Status Indication Fill Status Comments Medrol (Dutch) 4 mg tablets in a dose pack take by Oral route use as directed 81 MG 1 tablet 4 - Active Mobic 7.5 mg tablet take 1 tablet by oral route every day with food 81 MG 1 tablet 3 - Active metformin 500 mg tablet take 1 tablet by oral route 2 times every day with morning and evening meals 81 MG 1 tablet - Active Rosanna 180 mg tablet take 1 tablet by oral route every day 81 MG 1 tablet - Active Aspirin Low Dose 81 mg tablet,delay ed release take 1 tablet by oral route every day 81 MG 1 tablet - Active Calcium 600 600 mg (1,500 mg) tablet 81 MG 1 tablet - Active hydrocodone 5 mg-acetamino phen 500 mg capsule take 1 capsule by oral route every 6 hours as needed 81 MG 1 tablet - Active losartan 100 mg tablet take 1 tablet by oral route every day 81 MG 1 tablet - Active meloxicam 15 mg tablet take 1 tablet by oral route every day with food 15 MG 1 tablet - Active simvastatin 40 mg tablet take 1 tablet by oral route every day in the evening 81 MG 1 tablet - Active Vitamin B-12 500 mcg tablet 81 MG 1 tablet - Active Procedures Procedure Date EST YAYO,OV,PROB FOCUSED Advance Directives Directive Yes / No Effective Date File Name No Information Encounters Encounter Description Practice Location Reason(s) For Visit Diagnoses Date Provider Encounter Disposition EST YAYO,COLLEEN,PRO B FOCUSED [facility] , [address], [place], [id number] , tel:[phone] [facility] lumbar spine pain (chief complaint) Spinal stenosis of lumbar regionAcquired spondylolisthesisDe generation of lumbar or lumbosacral intervertebral discScoliosis (and kyphoscoliosis), idiopathic 4 [facility]. [address], [id number] , . tel:[phone] [facility] , [address], [place], [id number] , tel:[phone] [facility] right hip pain (chief complaint) Acquired spondylolisthesisDe generation of lumbar or lumbosacral intervertebral discSpinal stenosis of lumbar region 3 [facility]. [address], [id number] , . tel:[phone] Family History Family Member Type Diagnosis Age At Onset No Information Payers Payer name Insurance type Identifiers Authorization(s) [employer] [id number] CI ID: [id number] Name: Coverage Status Eligibility Check on: [id number] ship to Subscriber: selfPayer Address: [place] [address], [place], [place], [address] [place] [address] Phone: Social History Type Description Quantity Date Captured Comments Alcohol Use Details Unknown Caffeine Use Details Unknown Tobacco Use Status No Information Smoking Status No Information Smoking Tobacco Use Details Cigarette: No Details Available Cigarette: No Details Available Sex Female No - not Current Gender Female (finding) Chief Complaint And Reason For Visit From encounter dated '11/12/2013 09:20'. lumbar spine pain (chief complaint) History Of Present Illness Encounter Date Complaint History Of Prese nt Illness lumbar spine pain right hip pain Functional Status Date Description Comments No Information Instructions Date Instruction Additional Infor dean Steroid instructions - Medication refills must be requested before 4pm Tuesday through Tuesday Related to Spinal stenosis of lumbar region - Patient education available at [email or web address] on the Education tab Related to Spinal stenosis of lumbar region NSAID instructions Call therapy decision unit rn: Juan Jose byrne. - Medication refills must be requested before 4pm Tuesday through Tuesday Related to Spinal stenosis of lumbar region - Patient education available at [email or web address] on the Education tab Related to Spinal stenosis of lumbar region Assessments Type Assessment Date No Information
[2025-09-12 14:59] LABS: Microscopic, Urine URINE MICROSCOPIC (MICROSCOPIC)
[2025-09-12 15:19] LABS: Hematocrit 34.6 % (37.0-47.0); Hemoglobin 11.2 g/dL (12.2-16.2); Mean Corpuscular HGB Conc 32.4 g/dL (31.8-35.4); Mean Corpuscular Hemoglobin 32.3 pg (27.0-31.2); Mean Corpuscular Volume 99.7 fl (81-99); Nucleated Red Blood Cells % 0 %; Platelet Count 290 K/mm3 (142-424); Red Blood Count 3.47 M/mm3 (4.20-5.40); Red Cell Distribution Width-SD 44.1 fL; White Blood Count 7.7 K/mm3 (4.8-10.8)
[2025-09-12 15:39] LABS: Hemoglobin A1C 7.6 % (4.0-6.0)
[2025-09-12 16:14] LABS: Anion Gap 14.0 mEq/L (5-15); Blood Urea Nitrogen 45 mg/dl (7-17); Carbon Dioxide 22 mmol/L (22.0-30.0); Chloride 104 mmol/L (98-107); Creatinine,Serum 2.90 mg/dl (0.52-1.04); Potassium 4.0 mmoL/L (3.5-5.1); Sodium 136 mmol/L (136-145)
[2025-09-12 16:15] LABS: Albumin Level 4.7 g/dl (3.5-5.0); Calcium 9.4 mg/dl (8.4-10.2); Estimated Glomerular Filt Rate 15 ml/min (>60); GFR (African American) 19 ML/MIN (>60); Glucose 138 mg/dl (74-100); Phosphorous 4.2 mg/dl (2.5-4.5)
[2025-09-12 16:33] LABS: 25-OH Vitamin D, Total 95.6 ng/mL (30-100)
[2025-09-12 16:42] LABS: Bilirubin,Urine Negative (Negative); Color,Urine YELLOW (Yellow); Glucose,Urine (UA) Negative (Negative); Ketones,Urine Negative (Negative); Leukocyte Esterase,Urine 1+ (Negative); PH,Urine 6.0 (5.0-8.5); Protein,Urine 1+ (Negative); Specific Gravity, Urine 1.015 (1.005-1.030); Urobilinogen,Urine 0.2 EU/dl (0.2)
[2025-09-12 17:04] LABS: Bacteria,Urine 3+ /lpf; WBC,Urine 20-50 #/hpf (0-3)
== END 2025-09-12 23:59 | disposition home or self-care (01) ==
LOC: LAB 14:53
PROVIDERS: PCP Nurse Practitioner Family; Visit Provider Student in an Organized Health Care Education/Training Program
DX: I12.9 Hypertensive chronic kidney disease with stage 1 through stage 4 chronic kidney disease, or unspecified chronic kidney disease (principal); N18.9 Chronic kidney disease, unspecified
CPT/HCPCS: 36415; 80069; 81001; 82043; 82306; 82570; 83036; 83970; 84156; 85027; 87086; 87088

== ENCOUNTER 2025-09-30 07:07 | Emergency (ER) | payer MEDICARE, SELFPAY ==
--- OUTSIDE RECORDS SUMMARY | 2015-11-20 14:15 | XMS_ITS | Encounter Summary ---
Author Organization [facility] Address [address] [place] [address] Care Team Providers Care Sales Management Trainee Name Role Phone Unavailable Primary Care Provider Unavailabl e Encounter Details Date Type Department Care Team (Late st Contact Info) Description 11/20/2015 1:15 PM TREE DRILLER Hospital Encounter [facility] PULMONARY & CRITICAL CARE MEDICINE [address] [place] [address] [address] [place] [address] Jeiosn Whiting MD [address] [place] [address] [place] [address] Social History Tobacco Use Types Packs/Day Years Used Date Smoking Tobacco: Never Smokeless Tobacco: Never Alcohol Use Standard Drinks/Week Comments No 0 (1 standard drink = 0.6 oz pur e alcohol) PHQ-2 Answer Date Recorded PHQ-2 Score 0 08/01/2019 Abuse Screen Answer Date Recorded Unsafe at Home or Work/School Not on file Feels Threatened by Someone? Not on file 05/2023 Does Anyone Keep You from Co ntacting Others or Doint Things Outside the Home? Not on file 07/31/2023 Physical Sign of Abuse Present Not on file 1 Housing Stability Answer Date Recorded Current Living Arrangements Not on file 05/2023 Potentially Unsafe Housing Conditions Not on josefina e 07/31/2023 Family and Community Support Answer Az e Recorded Help with Day-to-Day Activities Not on file 07/31/2023 Lonely or Isolated Not on file 07/31/2023 Employment Answer Date Recorded Do you want help finding or keeping work or a olayinka b? Not on file 07/31/2023 Disabilities Answer Date Recorded Concentrating, Remembering, or Making Decisions Difficulty Not on file 07/31/2023 Doing Errands Independently Difficulty Not on fi le 07/31/2023 Education Answer Date Recorded Help with school or training? Not on file Preferred Language Not on file 07/31/2023 Comments No Sex and Gender Information Value Date Recorded Sex Assigned at Not on file Legal Sex Female 6:28 PM EDT Gender Identity Not on file Sexual Orientation Not on file documented as of this encounter Plan of Treatment Not on file documented as of this encounter Visit Diagnoses Not on filedocumented in this encounter
--- OUTSIDE RECORDS SUMMARY | 2015-12-08 09:00 | XMS_ITS | Encounter Summary ---
[facility] Organization [facility] Address [address] [place] [address] Care Team Providers Care Receiving Weigher Name Role Phone Unavailable Primary Care Provider Unavailabl e Encounter Details Date Type Department Care Team (Late st Contact Info) Description 12/08/2015 8:00 AM MULTIMEDIA SPECIALIST Hospital Encounter [facility] CARDIOLOGY [address] K[address]LE[address] [place] [address] Emma Quintanilla MD [address] [place] [address] [place] [address] Social History Tobacco Use Types Packs/Day Years [...]
--- OUTSIDE RECORDS SUMMARY | 2015-12-08 14:00 | XMS_ITS | Encounter Summary ---
[facility] Address [address] [place] [address] Care Team Providers Care Lead Care Manager Name Role Phone Unavailable Primary Care Provider Unavailabl e Encounter Details Date Type Department Care Team (Late st Contact Info) Description 12/08/2015 1:00 PM B2B SALES CONSULTANT Hospital Encounter [facility] CARDIOLOGY [address]LE[address] [place] [address] Emma Quintanilla MD [address] [place] [address] [place] [address] Social History Tobacco Use Types [...]
--- OUTSIDE RECORDS SUMMARY | 2015-12-08 14:00 | XMS_ITS | Encounter Summary ---
[facility] Address [address] [place] [address] Care Team Providers Care Equity Analyst Name Role Phone Unavailable Primary Care Provider Unavailabl e Encounter Details Date Type Department Care Team (Late st Contact Info) Description 12/08/2015 1:00 PM EMBEDDED DEVELOPER Hospital Encounter [facility] CARDIOLOGY [address] K[address]LEEN [address]O [address] [place] [address] Emma Quintanilla MD [address] [place] [address] [place] [address] Social History Tobacco Use Types [...]
--- OUTSIDE RECORDS SUMMARY | 2015-12-08 15:00 | XMS_ITS | Encounter Summary ---
[facility] [address] [place] [address] Care Team Providers Care Administrative Assistant Coordinator Name Role Phone Unavailable Primary Care Provider Unavailabl e Encounter Details Date Type Department Care Team (Late st Contact Info) Description 12/08/2015 2:00 PM BULLET MAKER Hospital Encounter [facility] CARDIOLOGY [address] KATHLEEN [address]O [address] [place] [address] Emma Quintanilla MD [address] [place] [address] [place] [address] Social History Tobacco Use Types [...]
--- OUTSIDE RECORDS SUMMARY | 2016-01-07 09:15 | XMS_ITS | Encounter Summary ---
Author Organization [facility] Address [address] [place] [address] Care Team Providers Care Inventory Manager Name Role Phone Unavailable Primary Care Provider Unavailabl e Encounter Details Date Type Department Care Team (Late st Contact Info) Description 01/07/2016 9:15 AM CDT Hospital Encounter [facility] CARDIOLOGY [address] [place] [address] [address]LE[address] [place] [address] Caitlin Vaughn MD [address] [place] [address] [address]LE[address] [place] [address] Social History Tobacco Use Types [...] help finding or keeping work or a loayinka b? Not on file 07/31/2023 Disabilities Answer [...]
--- OUTSIDE RECORDS SUMMARY | 2016-01-20 08:45 | XMS_ITS | Encounter Summary ---
Author Organization [facility] Address [address] [place] [address] Care Team Providers Care Security Technician Name Role Phone Unavailable Primary Care Provider Unavailabl e Encounter Details Date Type Department Care Team (Late st Contact Info) Description 01/20/2016 8:45 AM CDT [facility] [address] [place] [address] [address] [place] [address] Caitlin Vaughn MD [address] [place] [address] [address] KATHLE[address] [place] [address] Social History Tobacco Use Types [...]
--- OUTSIDE RECORDS SUMMARY | 2016-02-18 08:10 | XMS_ITS | Encounter Summary ---
Author Organization [facility] Address [address] [place] [address] Care Team Providers Care Pin Machine Operator Name Role Phone Unavailable Primary Care Provider Unavailabl e Encounter Details Date Type Department Care Team (Late st Contact Info) Description 02/18/2016 8:10 AM CDT Hospital Encounter [facility] CARDIOLOGY [address] [place] [address] [address]LE[address] [place] [address] Caitlin Vaughn MD [address] [place] [address] [address] K[address]LE[address] [place] [address] Social History Tobacco Use Types [...]
--- OUTSIDE RECORDS SUMMARY | 2016-03-17 08:10 | XMS_ITS | Encounter Summary ---
Author Organization [facility] Address [address] [place] [address] Care Team Providers Care Cop Examiner Name Role Phone Unavailable Primary Care Provider Unavailabl e Encounter Details Date Type Department Care Team (Late st Contact Info) Description 03/17/2016 8:10 AM CDT Hospital Encounter [facility] CARDIOLOGY [address] [place] [address] [address]ATHLE[address] [place] [address] Caitlin Vaughn MD [address] [place] [address] [address] KATHLE[address] [place] [address] Social History Tobacco Use Types [...]
--- OUTSIDE RECORDS SUMMARY | 2016-03-29 07:57 | XMS_ITS | Encounter Summary ---
Author Organization [facility] Address [address] [place] [address] Care Team Providers Care Brick Off Bearer Name Role Phone Unavailable Primary Care Provider Unavailabl e Encounter Details Date Type Department Care Team (Late st Contact Info) Description 03/29/2016 7:57 AM CDT Hospital Encounter [facility] Emma Quintanilla MD [address] [place] [address] [place] [address] Social History Tobacco Use Types Packs/Day [...]
--- OUTSIDE RECORDS SUMMARY | 2016-06-03 08:00 | XMS_ITS | Encounter Summary ---
Author Organization [facility] Address [address] [place] [address] Care Team Providers Care Craps Dealer Name Role Phone Emma Quintanilla MD Primary Care Provider [phone] Encounter Details Date Type Department Care Team (Late st Contact Info) Description 06/03/2016 8:00 AM CDT Hospital Encounter [facility] Emma Quintanilla MD [address] [place] [address] [place] [address] Social History Tobacco [...] on file documented as of this encounter Procedures Procedure Name Priority Date/Time Associated Diagnosis Comments CBC AND DIFFERENTIAL Today 06/03/2016 10:25 AM CDT LIPID PANEL Today 06/03/2016 10:25 AM CDT COMPREHENSIVE METABOLIC PANEL Today 06/03/2016 10:25 AM CDT documented in this encounter Results * (ABNORMAL) Comprehensive metabolic panel (06/03/2016 10:25 AM CDT) Glucose 109(H) 70.0 - 100.0 mg/dl 06/03/2016 11:42 AM [facility] BUN 26(H) 8.0 - 25.0 mg/dl 06/03/2016 11:42 AM [facility] Creatinine 1.1 0.4 - 1.3 mg/dl 06/03/2016 11:42 AM [facility] Sodium 140.0 134 - 146 mmol/L 06/03/2016 11:42 AM [facility] Potassium 5.0 3.4 - 5.4 mmol/L 06/03/2016 11:42 AM [facility] Chloride 103.0 100.0 - 112.0 mmol/L 06/03/2016 11:42 AM [facility] CO2 28.0 20.0 - 32.0 mmol/L 06/03/2016 11:42 AM [facility] Calcium 9.6 8.4 - 10.8 mg/dl 06/03/2016 11:42 AM [facility] Total Protein 7.6 6.7 - 8.2 gm/dl 06/03/2016 11:42 AM [facility] Albumin 4.2 3.2 - 5.5 gm/dl 06/03/2016 11:42 AM [facility] Total Bilirubin 0.6 0.2 - 1.0 mg/dl 06/03/2016 11:42 AM [facility] Alkaline Phosphatase 69 15 - 121 U/L 06/03/2016 11:42 AM [facility] ALT (SGPT) 14 10 - 60 U/L 06/03/2016 11:42 AM [facility] AST (SGOT) 17 10 - 60 U/L 06/03/2016 11:42 AM [facility] GFR MDRD Non 48 39 - 90 mL/min/1.7 3 sq.M 06/03/2016 11:42 AM [facility] Comment: Invalid if creatinine is changing or the patient is on dialysis. Use AA result if patient is -Guamanian, non AA result otherwise. GFR MDRD 58 39 - 90 mL/min/1.7 3 sq.M 06/03/2016 11:42 AM [facility] Anion Gap 9.0 5.0 - 15.0 mmol/L 06/03/2016 11:42 AM [facility] Blood specimen (specimen) 06/03/2016 10:25 AM CDT 06/03/2016 10:31 AM CDT Narrative [facility] - 06/03/2016 11:42 AM CDT Specimen Type : Blood13 HRPP Emma Quintanilla MD LAB BLOOD ORDERABLES Final Re sult [facility]
[address] [place] [address], [place] [phone] [facility]
[address] [place] [address], [place] [phone] * (ABNORMAL) Lipid panel (06/03/2016 10:25 AM CDT) Total Cholesterol 145(L) 150 - 200 mg/dl 06/03/2016 11:42 AM CDT [facility] Comment:CHOL DESIRED: < 200 MG/DL Triglycerides 185(H) 35 - 160 mg/dl 06/03/2016 11:42 AM CDT [facility] Comment:TRIG DESIRED: < 200 MG/DL HDL Cholesterol 36.4 35.0 - 100.0 mg/dl 06/03/2016 11:42 AM CDT [facility] Comment:HDL AVERAGE RISK: 35 - 60 MG/DL LDL Cholesterol 72 mg/dl 6 11:42 AM CDT [facility] Comment: LDL DESIRED: < 130 MG/DL LDL DESIRED: < 130 MG/DL LDL DESIRED: < 130 MG/DL Blood specimen (specimen) 06/03/2016 10:25 AM CDT 06/03/2016 10:31 AM CDT Narrative [facility] - 06/03/2016 11:42 AM CDT Specimen Type : Blood13 HRPP Emma Quintanilla MD LAB BLOOD ORDERABLES Final Re sult [facility]
[address] [place] [address], [place] [phone] [facility]
[address] [place] [address], * (ABNORMAL) CBC and Differential (06/03/2016 10:25 AM CDT) WBC 5.5 3.2 - 9.8 x1000/uL 06/03/2016 10:37 AM CDT [facility] RBC 4.05 3.77 - 5.16 carol/mm3 06/03/2016 10:37 AM CDT [facility] Hemoglobin 13.2 12.0 - 15.5 gm/dl 06/03/2016 10:37 AM CDT [facility] Hematocrit 39.9 35.0 - 45.0 % 06/03/2016 10:37 AM CDT [facility] MCV 98.5(H) 80.0 - 98.0 fl 06/03/2016 10:37 AM CDT [facility] MCH 32.6 26.0 - 34.0 pg 06/03/2016 10:37 AM CDT [facility] MCHC 33.1 31.4 - 36.0 gm/dl 06/03/2016 10:37 AM CDT [facility] Platelets 286 150 - 450 x1000/mm3 06/03/2016 10:37 AM CDT [facility] RDW 12.3 11.5 - 14.5 % 06/03/2016 10:37 AM CDT [facility] MPV 9.6 8.0 - 12.0 fl 06/03/2016 10:37 AM CDT [facility] Neutrophil Rel % 56.5 37.0 - 80.0 % 06/03/2016 10:37 AM CDT [facility] Lymphocyte Rel % 32.5 10.0 - 50.0 % 06/03/2016 10:37 AM CDT [facility] Monocyte Rel % 7.5 0.0 - 12.0 % 06/03/2016 10:37 AM CDT [facility] Eosinophil Rel % 2.4 0.0 - 7.0 % 06/03/2016 10:37 AM CDT [facility] Basophil Rel % 1.1 0.0 - 2.0 % 06/03/2016 10:37 AM CDT [facility] nRBC 0 06/03/2016 10:37 AM CDT [facility] nRBC 0 06/03/2016 10:37 AM CDT [facility] Blood specimen (specimen) 06/03/2016 10:25 AM CDT 06/03/2016 10:31 AM CDT [facility] - 06/03/2016 10:37 AM CDT Specimen Type : Blood13 HRPP Emma Quintanilla MD LAB BLOOD ORDERABLES Final Re sult [facility]
[address] [place] [address], [place] [phone] [facility]
[address] [place] [address], [place] [phone] documented in this encounter Visit Diagnoses Not on filedocumented in this encounter Care Teams Craps Dealer Relationship Specialty Start Date End Date Emma Quintanilla MD [address] [place] [address] [place] [address] PCP - General 04/07/16 documented as of this encounter
--- OUTSIDE RECORDS SUMMARY | 2016-06-03 08:23 | XMS_ITS | Encounter Summary ---
Author Organization [facility] Address [address] [place] [address] Care Team Providers Care Admissions Clerk Name Role Phone Emma Quintanilla MD Primary Care Provider [phone] Encounter Details Date Type Department Care Team (Late st Contact Info) Description 06/03/2016 8:23 AM CDT Hospital Encounter [facility] Emma Quintanilla MD [address] [place] [address] [place] [address] Social History Tobacco Use Types Packs/Day [...] Procedure Name Priority Date/Time Associated Diagnosis Comments TSH Today 06/03/2016 10:25 AM CDT T4, FREE Today 06/03/2016 10:25 AM CDT HEMOGLOBIN A1C Today 06/03/2016 10:25 AM CDT documented in this encounter Results * (ABNORMAL) Hemoglobin A1c (06/03/2016 10:25 AM CDT) Hemoglobin A1C 6.2(H) 4.0 - 5.6 %TotHgb 06/04/2016 10:32 AM CDT [facility] Blood specimen (specimen) 06/03/2016 10:25 AM CDT 06/04/2016 8:52 AM CDT Narrative [facility] - 06/04/2016 10:32 AM CDT Specimen Type : WHOLE BLOOD13 HRPP us Emma Quintanilla MD LAB BLOOD ORDERABLES Final Re sult [facility]
[address] [place] [address], * TSH (06/03/2016 10:25 AM CDT) TSH 1.36 0.46 - 4.68 uIU/ml 06/04/2016 9:37 AM CDT [facility] Blood specimen (specimen) 06/03/2016 10:25 AM CDT 06/04/2016 8:52 AM CDT [facility] - 06/04/2016 9:37 AM CDT Specimen Type : Blood13 HRPP us Emma Quintanilla MD LAB BLOOD ORDERABLES Final Re sult Performing Organization Address City/[facility]/ZIP Co de Phone Number [facility]
[address] [place] [address], * T4, free (06/03/2016 10:25 AM CDT) Free T4 0.99 0.78 - 2.19 ng/dl 06/04/2016 9:20 AM CDT [facility] Blood specimen (specimen) 06/03/2016 10:25 AM CDT 06/04/2016 8:52 AM CDT [facility] - 06/04/2016 9:20 AM CDT Specimen Type : Blood13 HRPP us Emma Quintanilla MD LAB BLOOD ORDERABLES Final Re sult Performing Organization Address [facility] Co de Phone Number [facility]
[address] [place] [address], documented in this encounter Visit Diagnoses Not on filedocumented in this encounter Care Teams Admissions Clerk Relationship Specialty Start Date End Date Emma Quintanilla MD [address] [place] [address] [place] [address] PCP - General 04/07/16 documented as of this encounter
--- OUTSIDE RECORDS SUMMARY | 2025-09-13 10:40 | XMS_ITS | Encounter Summary ---
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 chronic kidney disease Bj Oliva MD [address] [place] [address] Phone: tel: fax: Referral ID Status Reason Start Date Expiration Date V isits Requested Visits Authorized [id number] Authorized 09/13/2025 03/15/2027 1 1 Reason for [...] disease Persistent proteinuria Bj Oliva MD [address] [place] [address] Phone: tel: fax: Referral ID Status Reason Start Date Expiration Date Visits Re quested Visits Authorized [id number] Closed 03/29/2025 09/28/2026 1 1 Encounter Details Date Type Department Care Team ([facility] st Contact Info) Description 09/13/2025 10:40 AM EST Office Visit [facility] [address] [place], [place] [address] Bj Oliva MD [address] [place] [address] Hypertensive chronic kidney disease with [...] AM EST Nephrology clinic follow up visit [facility] in [place] SELINA Juares presents for follow up for [...] <7.5% -Proteinuria treatment with ARB (losartan) and GRGN3kc (Farxiga 10mg daily) -Avoid NSAIDs -See Urology [...] Expiration Date: 03/17/2027 [facility] Urinalysis with reflex microscopic (Culture NOT Included) Standing Status: Future Expected Date: 01/11/2026 Expiration Date: 03/17/2027 [facility] Vitamin D 25 Hydroxy Standing Status: Future Expected Date: 01/11/2026 Expiration Date: 03/17/2027 [facility] PTH Intact Total Standing Status: Future Expected Date: 01/11/2026 Expiration Date: 03/17/2027 [facility] Albumin-creatinine ratio, urine, random Standing Status: Future Expected Date: 01/11/2026 Expiration Date: 03/17/2027 [facility] Protein, Random, Urine with Creatinine Standing [...] Description 01/24/2026 1:40 PM EDT Office Visit [facility] [address] [place] [address] Bj Oliva MD [address] [place] [phone] Scheduled Orders Name Type Priority Associated [...] documented as of this encounter Care Teams Ceramic Mold Designer Relationship Specialty Start Date End Date Anna Montalvo APRN [address] [place] [address] PCP - General 07/12/24 documented as of this encounter
[2025-09-30] VITALS (10 sets, daily range): BP systolic 115–190; BP diastolic 57–95; PULSE 47–75; RESP 13–22; TEMP 36.6–36.7; O2SAT 94–98; BMI 25.0
--- NOTE | 2025-09-30 07:11 | ECG_ITS ---
APPROVED REPORT Exam: Resting ECG HR:70 bpm ECG Measurements Heart Rate 70 AXES ME 229 P 3 QRSd 114 QRS -54 QT 397 T 104 QTc 419 Conclusion SINUS RHYTHM WITH FIRST DEGREE AV BLOCK LEFT ANTERIOR FASCICULAR BLOCK [QRS AXIS <= -45, QR IN I, RS IN II] MINIMAL VOLTAGE CRITERIA FOR LVH, CONSIDER NORMAL VARIANT [MEETS CRITERIA IN ONE OF: R(aVL), S(V1), R(V5), R(V5/V6)+S(V1)] POSSIBLE ANTERIOR MYOCARDIAL INFARCTION , PROBABLY OLD [30 ms Q WAVE IN V3/V4, OR R < 0.2 mV IN V4] ABNORMAL ECG UNCONFIRMED REPORT Electronically signed by : Javi Lugo, 09/30/2025 16:36:35
--- NOTE | 2025-09-30 07:16 | HMH.EDGENADL ---
Discharge Plan Disposition Patient Disposition: Home, Self-Care Condition: Good Prescriptions Prescriptions: No Action Januvia 25 mg tablet 25 mg PO DAILY (DME) blood-glucose meter [Accu-Chek Guide Me Glucose Mtr[place] [facility] [place] .ROUTE DAILY Qty: 1 Rx Instructions: As directed cetirizine [Zyrtec] 10 mg tablet 10 mg PO DAILY PRN (DME) Accu-Chek Guide test strips Strip See Rx Instructions .ROUTE DAILY Qty: 10 Rx Instructions: As directed (DME) lancets [Accu-Chek Softclix Lancets] Misc See Rx Instructions .ROUTE DAILY Qty: 100 Rx Instructions: As directed atorvastatin 40 mg tablet 40 mg PO DAILY mirabegron 25 mg tablet extended release 24 hr 25 mg PO DAILY omeprazole 40 mg capsule,delayed release(DR/EC) 40 mg PO QDAY Qty: 90 3RF Rx Instructions: swallow whole; do not crush, chew, dissolve, or cut/break losartan 50 mg tablet 25 mg PO DAILY metoprolol tartrate 25 mg tablet 25 mg PO BID Referrals Follow up/Referrals: Anna Montalvo APRN [Primary Care Provider, Medical] - See instructions Activity Restrictions/Add. Instructions Additional Instructions/Restrictions: Follow-up with cardiology as scheduled. Return if your chest pain returns, worsens or changes in characteristic or if you develop shortness of breath. Clinical Impressions Clinical Impression: Atypical chest pain Print Language Print Language: [place] Discharge ED Provider: Javi Lugo Adult HPI General Chief complaint: Chest Pain Stated complaint: CP Time Seen by Provider: 09/30/25 07:16 History of Present Illness HPI narrative: Patient is an 85-year-old female with a history of hypertension, hyperlipidemia, type 2 diabetes, CKD, GERD. She presents today due to concerns for chest pain. Daughter at bedside assist with history. They report that last week, when she was going to a movie they were walking up the hill and she noticed anterior chest pressure radiating into her right shoulder at that time as she was exerting herself walking up the hill. She reports that as they sat down, resolved after about 5 minutes. She reports that she felt dyspneic at that time as well. She has been feeling okay that is until this morning when she woke up at about 4:30 AM and reports that while she was lying in bed she had an anterior chest pressure similar in characteristic that is radiated to her right shoulder. Does not radiate to her back. It is a throbbing and pressure sensation. She reports that it has not gone away and is worse with exertion. She denies any vision changes numbness weakness tingling. Denies any significant shortness of breath this morning, but does feel like she cannot take a large deep breath. She denies any lower extremity edema. Denies any significant orthopnea. Denies any recent infectious symptoms fever cough congestion runny nose vomiting or diarrhea. Denies any abdominal pain. Related Data Home Medications ?Medication ?Instructions ?Recorded ?Confirmed metoprolol tartrate 25 mg tablet 25 mg PO BID bp 06/28/23 09/26/25 losartan 50 mg tablet 25 mg PO DAILY High blood pressure 12/15/23 09/26/25 atorvastatin 40 mg tablet 40 mg PO DAILY 09/12/25 09/26/25 blood sugar diagnostic (Accu-Chek #10 ea 09/12/25 09/12/25 Guide test strips) blood-glucose meter (Accu-Chek #1 ea 09/12/25 09/12/25 Guide Me Glucose Meter) cetirizine 10 mg tablet (Zyrtec) 10 mg PO DAILY PRN 09/12/25 09/26/25 lancets (Accu-Chek Softclix #100 ea 09/12/25 09/12/25 Lancets) mirabegron 25 mg tablet,extended 25 mg PO DAILY 09/12/25 09/26/25 release 24 hr sitagliptin phosphate 25 mg tablet 25 mg PO DAILY 09/26/25 09/26/25 (Peeweeuvson) Previous Rx's ?Medication ?Instructions ?Recorded omeprazole 40 mg capsule,delayed 40 mg PO QDAY gerd #90 caps 07/30/24 release Allergies Allergy/AdvReac Type Severity Reaction Status Date / Time No Known Allergies Allergy Verified 09/26/25 13:51 [facility] Disclaimer: The information contained in this section may have been updated after the patient was seen, as this information can be updated by other users. Medical History (Updated 09/30/25 @ 12:06 by Javi Lugo MD) SOB (shortness of breath) Chest pain Complex sleep apnea syndrome Palpitations Chronic pain syndrome Crescendo angina Surgical History History of cataract surgery S/P complete hysterectomy Family History Other Cancer Coronary artery disease Diabetes Heart attack Hypertension Social History Smoking Status: Never smoker second hand exposure: No alcohol intake: never counseling provided: none substance use type: denies use current occupational status: other Travel in the last 8 weeks?: None household members: none housing: house current occupational exposures/hazards: No Other Medical History Have you received the Flu Vaccine for this season: Yes Have you received the Pneumonia Vaccine: Yes ROS Obtained: Yes All systems reviewed & no additional complaints except as documented Physical Exam General General appearance: alert and in no apparent distress Head Head exam: atraumatic and normocephalic Eye Eye exam: Present PERRL and EOMI ENT ENT exam: Present normal oropharynx Neck Neck exam: Present full ROM and trachea midline Chest Chest inspection: Present symmetric chest wall rise Respiratory Respiratory exam: Present normal lung sounds bilaterally; Absent stridor Cardiovascular Cardiovascular exam: Present regular rate and normal rhythm Abdominal Exam Abdominal exam: Present soft; Absent distention or tenderness Extremities Exam Extremities exam: Present full ROM Neurological Exam Neurological exam: Present alert and oriented X3 Psychiatric Psychiatric exam: Present normal mood Skin Skin exam: Present warm and dry Medical Decision Making Medical Records Screening: Per USPSTF and CDC recommendations, given the prevalence of disease in our region, it is our hospital?s policy to screen for HIV and viral Hepatitis for all patients aged 18 and over and those with ongoing risk factors. Jim Inquiry Pt receiving controlled substance: No Vital Signs: 09/30/25 07:08 09/30/25 07:23 09/30/25 07:30 Temperature 97.9 F Temperature Source Oral Pulse Rate 75 64 Pulse Rate [Left Radial] 73 Respiratory Rate 20 14 Blood Pressure 173/80 H Blood Pressure [Right Arm] 190/95 H Blood Pressure Mean 114 Blood Pressure Mean [Right Arm] 126 02 Sat by Pulse Oximetry 98 97 Oxygen Delivery Method Room Air 09/30/25 08:31 09/30/25 09:00 09/30/25 09:30 Temperature Temperature Source Pulse Rate 54 L 49 L 47 L Pulse Rate [Left Radial] Respiratory Rate 22 13 15 Blood Pressure 132/59 L 129/62 139/66 Blood Pressure [Right Arm] Blood Pressure Mean 90 Blood Pressure Mean [Right Arm] 02 Sat by Pulse Oximetry 94 L 95 95 Oxygen Delivery Method Room Air Room Air 09/30/25 10:01 09/30/25 10:30 09/30/25 11:00 Temperature Temperature Source Pulse Rate 57 L 59 L 56 L Pulse Rate [Left Radial] Respiratory Rate 14 13 16 Blood Pressure 132/60 115/57 L 138/65 Blood Pressure [Right Arm] Blood Pressure Mean Blood Pressure Mean [Right Arm] 02 Sat by Pulse Oximetry 95 96 95 Oxygen Delivery Method Room Air Lab Data Lab Results 09/30/25 07:15: D-Dimer 0.55 H 09/30/25 07:28: Sodium 145, Potassium 3.9, Chloride 110 H, Carbon Dioxide 22, Anion Gap 16.9 H, BUN 37 H, Creatinine 2.70 H, Estimated Creat Clear 17, Estimated GFR 17 L*, Est GFR ( Amer) 20 L, Glucose 121 H, Calcium 8.9, Total Bilirubin 0.5, AST 24, ALT 15, Alkaline Phosphatase 123, Troponin I < 0.01, Total Protein 8.3 H, Albumin 4.7, Globulin 3.6 H, Albumin/Globulin Ratio 1.3 09/30/25 11:13: Troponin I < 0.01 09/30/25 : WBC 6.4, RBC 3.41 L, Hgb 10.9 L, Hct 34.1 L, MCV 100.0 H, MCH 32.0 H, MCHC 32.0, RDW 12.2, Plt Count 286, MPV 9.4, Neut % (Auto) 56.4, Lymph % (Auto) 34.0, [place] % (Auto) 7.0, Eos % (Auto) 1.9, Baso % (Auto) 0.5, Neut # (Auto) 3.6, Lymph # (Auto) 2.2, [place] # (Auto) 0.5, Eos # (Auto) 0.1, Baso # (Auto) 0.0 09/30/25 Unknown 09/30/25 07:28 Orders (Tests/Meds): ED MEDICATIONS Generic Name Dose Route Start Last Admin Trade Name Freq PRN Reason Stop Dose Admin Sodium Chloride 8 ml 09/30/25 08:55 Sodium Chloride 0.9% 10ml Vial IV 10/30/25 08:54 NEEDED PRN dilute pepcid Discontinued Medications Generic Name Dose Route Start Last Admin Trade Name Andrae PRN Reason Stop Dose Admin Aspirin 325 mg 09/30/25 07:32 09/30/25 08:12 Aspirin 325mg Tablet PO 09/30/25 07:33 325 mg ONCE ONE Administration Belladonna Alkaloids 60 ml 09/30/25 08:55 09/30/25 09:18 Belladonna Alkaloids 60 Ml Ml PO 09/30/25 08:56 60 ml ONCE ONE Administration Famotidine 20 mg 09/30/25 08:55 09/30/25 09:18 Famotidine 20mg/2ml Vial IV 09/30/25 08:56 20 mg ONCE ONE Administration Nitroglycerin 0.4 mg 09/30/25 08:55 09/30/25 09:23 Nitroglycerin 0.4mg Sl Tablet SL 09/30/25 08:56 Not Given ONCE ONE ORDERS Category Date Time Status Cardiology Consult [Consult to Cardiology] [CONS] Cons 09/30/25 08:36 Active Routine XR chest portable Stat Exams 09/30/25 07:28 Completed Complete Blood Count Auto Diff Stat Lab 09/30/25 Completed Comprehensive Metabolic Panel Stat Lab 09/30/25 07:28 Completed D-Dimer Stat Lab 09/30/25 07:15 Completed Troponin I Q3H Lab 09/30/25 11:13 Completed Troponin I Q3H Lab 09/30/25 13:30 Ordered Troponin I Stat Lab 09/30/25 07:28 Completed CA echo doppler complete Stat Y 09/30/25 09:46 Completed ECG Data Tracing #1: I reviewed this ECG and interpreted as documented below: Normal sinus rhythm with a left bundle branch block, no obvious acute ischemic ST changes when applying S[place] criteria. HEART Score History (anamnesis): Highly suspicious ECG: Normal Age: >65 years Risk factors: 1-2 risk factors Troponin: </= normal limit HEART Score: 5 Medical Decision Narrative: Patient is an 85-year-old female with history of hypertension hyperlipidemia CKD, diabetes. She presents today due to concerns for chest pain. On arrival, she is afebrile mildly hypertensive systolics in the 190s, otherwise stable. On exam, warm and well-perfused with full equal pulses bilaterally. Heart is regular rate and rhythm and lung sounds are clear to auscultation bilaterally. No increased of breathing and no chest wall tenderness. No lower extremity edema. She is grossly neurologically intact. She was seen for this chest pressure that she had last week after the movie theater that sounded like a stable angina I reviewed her cardiology notes from [facility] G Spann from 09/26/2025, and at that time, they wanted patient to get a stress test and echocardiogram which is scheduled for later this week. However, patient woke up this morning with unstable anginal-like symptoms with chest pressure that has been persisting since about 4:30 AM this morning. She denies any other constitutional symptoms. Exam is reassuring. ACS is highly differential versus pulmonary embolism low risk, will screen with a D-dimer given low risk [place]. Chest x-ray to evaluate for pneumothorax. Will load with 324 aspirin right now. Hematologic labs to rule out electrolyte derangement. I independently interpreted the chest x-ray to demonstrate no acute cardiopulmonary abnormality. D-dimer back at 0.55. When applying age-adjusted years criteria, less than cutoff, therefore considered CT PE, but deferred given negative dimer. On reassessment, patient has been relatively bradycardic with rates in the low 50s that is sinus. This is most likely because she took an extra of her metoprolol this morning due to feeling palpitations. [place] reasonable to consult the hospitalist for admission in the setting of chest pain and elevated heart score to 5. Dr. Arellano I recommended sublingual nitro and GI cocktail and Pepcid. I deferred the sublingual nitro given patient's borderline blood pressures. Pepcid and GI cocktail were given. Patient began to report relief prior to these interventions. Nevertheless, she was having signs and symptoms of unstable angina while here so felt reasonable to consult cardiology. I had an interactive discussion with Em Crockett who will evaluate the patient and provide final recommendations, but recommends a transthoracic echocardiogram so that order has been placed. On reassessment, patient reports that she has been chest pain-free for the last couple of hours. I spoke with cardiology Em Crockett who has patient scheduled for follow-up in the coming days. She reviewed the echocardiogram with the attending area coordinator who is okay with patient going home and following up in clinic. Patient is amenable to this plan. my clinical impression was discussed with the patient and all questions were answered. Return precautions were given, with verbalization of understanding and agreement of this plan. Any pending results are to be followed up online. Critical Care Critical Care Time Critical Care Time: No
--- OUTSIDE RECORDS SUMMARY | 2025-09-30 07:18 | XMS_ITS | Encounter Summary ---
Author Organization Healthcare Address [address] [id number] Care Team Providers Care Bonsai Tender Name Role Phone Anna Montalvo APRN Primary Care Provider [phone]- [phone] Encounter Details Date Type Department Care Team (Latest Contact Info) Description 09/13/2025 Travel Social History Tobacco Use Types Packs/Day Years Used Date Smoking Tobacco: Never Passive Smoke Exposure: Never Smokeless Tobacco: Never Alcohol Use Standard Drinks/Week Comments Never 0 (1 standard drink = 0.6 oz pur e alcohol) Comments No Sex and Gender Information Value Date Recorded Sex Assigned at Not on file Legal Sex Female 6:28 PM EDT Gender Identity Not on file Sexual Orientation Not on file documented as of this encounter Plan of Treatment Upcoming Encounters Date Type Department Care Team (Late st Contact Info) Description 01/24/2026 1:40 PM EDT Office Visit [facility] [address] [place] [address] [address] [place] [address] Bj Oliva MD [address] [place] [phone] documented as of this encounter Visit Diagnoses Not on filedocumented in this encounter Additional Health Concerns Assessment Noted Time A fall risk assessment has been complete d for the patient 12/05/2023 2:35 PM EST A Body Mass Index follow-up plan has been documented for the patient 09/13/2025 10:53 AM EST documented as of this encounter Care Teams Bonsai Tender Relationship Specialty Start Date End Date Anna Montalvo APRN [address] [facility] [address] [place] [address] PCP - General 07/12/24 documented as of this encounter
--- OUTSIDE RECORDS SUMMARY | 2025-09-30 07:18 | XMS_ITS | Encounter Summary ---
Author Organization [facility] Address [address] [place] [address] Care Team Providers Care Certified Nurses' Aide Name Role Phone Derek Stephenson MD Primary Care Provider [phone]- [phone] Anna Montalvo APRN Primary Care Provider [phone]- [phone] Reason for Referral * Consultation (Routine) - Closed Specialty Diagnoses / Procedures Referred By Paulie martínez Referred To Contact Nephrology Diagnoses CKD stage G3b/A1, GFR 30-44 and albumin creatinine ratio <30 mg/g (CMS/HCC) Gary Henning MD [address] [facility] [address] [id number] Phone: tel: fax: [facility] Nephrology, Bone & Mineral Metabolism [address] [facility] [address] [facility], [address] [place] [address] Phone: tel: fax: Referral ID Status Reason Start Date Expiration Date V isits Requested Visits Authorized [id number] Closed Specialty Services Required 08/01/2023 01/30/2025 1 1 Encounter Details Date Type Department Care Team (Late st Contact Info) Description 08/01/2023 Community [facility] [address] [place] [address] Gary Henning MD [address] [facility] [address] [facility] [address] [place] [address] CKD stage G3b/A1, GFR 30-44 and albumin creatinine ratio <30 mg/g (CMS/HCC) (Primary Dx) Social History Tobacco Use Types Packs/Day Years Used Date Smoking Tobacco: Never Comments Unknown Sex and Gender Information Value Date Recorded Sex Assigned at Not on file Legal Sex Female 6:28 PM EDT Gender Identity Not on file Sexual Orientation Not on file documented as of this encounter Plan of Treatment Upcoming Encounters Date Type Department Care Team ([facility] st Contact Info) Description 01/24/2026 1:40 PM EDT Office Visit [facility] [address] [place] [phone] Bj Oliva MD [address] [place] [phone] Scheduled Referrals Name Type Priority Associated Diagnoses Order Schedule Ambulatory referral to Nephrology Outpatient Referral Routine CKD stage G3b/A1, GFR 30-44 and albumin creatinine ratio <30 mg/g (CMS/HCC) Ordered: 08/01/2023 documented as of this encounter Visit Diagnoses Diagnosis CKD stage G3b/A1, GFR 30-44 and albumin creatinine ratio <30 mg/g (CMS/HCC)- Primary documented in this encounter Care Teams Certified Nurses' Aide Relationship Specialty Start Date End Date Derek Stephenson MD [address] [address] PCP - General 03/06/21 07/11/24 Anna Montalvo APRN [address] [address] PCP - General 07/12/24 documented as of this encounter
--- OUTSIDE RECORDS SUMMARY | 2025-09-30 07:18 | XMS_ITS | Clinical Summary ---
Author Organization [facility] Address [address] [place] [phone] Phone Care Team Providers Care Cage/Vault Supervisor Name Role Phone Unavailable Primary Care Provider Unavailabl e Social History Tobacco Use Types Packs/Day Years Used Date Smoking Tobacco: Never Assessed Comments Unknown Sex and Gender Information Value Date Recorded Sex Assigned at Not on file Legal Sex Female 2:43 PM EST Gender Identity Not on file Sexual Orientation Not on file Plan of Treatment Upcoming Encounters Date Type Department Care Team (Late st Contact Info) Description 11/14/2025 10:30 AM EST Office Visit [facility] [address] [phone] Little Rayo MD [address] [place] [phone] Health Maintenance Due Date Last Done Comments Wellness Exam Medicare 1943 DTaP/TDaP/Td (1 - Tdap) 1958 Pneumococcal Vaccine 50+ (1 of 1 - PCV) 1989 Zoster (1 of 2) 1989 Bone Density Screening 2004 RSV or 60+ (1 - 1-d ose 75+ series) 2014 COVID-19 Vaccine ( - 2024-2 6 season) 2025 Influenza Vaccine (#1) 2025 Hepatitis B Vaccine Aged Out No longe r eligible based on patient's age to complete this topic Meningococcal B Vaccine Aged Out No l onger eligible based on patient's age to complete this topic Insurance [facility] MEDICARE PPO MR
--- OUTSIDE RECORDS SUMMARY | 2025-09-30 07:18 | XMS_ITS | Clinical Summary ---
Author Organization [facility] Address [address] [place] [address] Care Team Providers Care Almond Grinder Name Role Phone Anna Montalvo TRAVEL REGISTERED NURSE NICU Primary Care Provider [phone] Allergies No known active allergies Medications omeprazole (PriLOSEC) [address] capsule Take 1 capsule (40 mg) by mouth 1 (one) time each day. 7 Active metoprolol tartrate (Lopressor) 25 MG tablet 3 Active mirabegron ER (Myrbetriq) 25 MG tablet 4 Active atorvastatin (Lipitor) 20 MG tablet Take 1 tablet by mouth daily. Active Vitamin D-Vitamin K (VITAMIN K2-VITAMIN D3 PO) Take by mouth. Active losartan (Cozaar) 25 MG tabletIndication s:Persistent proteinuria Take 1 tablet by mouth daily. 90 tablet 3 5 Active cetirizine (ZyrTEC) 10 MG tablet Take 1 tablet by mouth daily. Active Flaxseed, Linseed, (FLAXSEED OIL PO) Take 40 mg by mouth daily. Active metoprolol succinate XL (Toprol XL) 25 MG 24 hr tablet Take 1 tablet (25 mg) by mouth 1 (one) time each day. 7 09/13/20 25 Discontinue d(Per Patient Report) cyanocobalamin 100 MCG tablet Take 1 tablet (100 mcg) by mouth 1 (one) time each day. 09/13/20 25 Discontinue d(Per Patient Report) famotidine (Pepcid) 20 MG tablet 3 09/13/20 25 Discontinue d(Per Patient Report) glucose blood test strip Use one strip to test blood sugar 1 time every day 09/13/20 25 Discontinue d(Per Patient Report) Farxiga 10 MG tablet 09/13/20 25 Discontinue d(Per Patient Report) Active Problems Problem Noted Date Diagnosed Date Absence of bladder continence 07/12/2024 Persistent proteinuria 07/12/2024 Chronic kidney disease-mineral and bone disorder (CKD-MBD) 07/12/2024 CKD (chronic kidney disease) stage 4, GFR 15-29 ml/min 07/12/2024 Hypertensive chronic kidney disease with stage 1 through stage 4 chronic kidney disease, or unspecified chronic kidney disease 07/12/2024 Left groin pain 07/12/2024 Encounters Date Type Department Care Team Description 09/13/2025 10:40 AM EST Office Visit [facility] [address] [facility] [address] [place] [phone] Bj Oliva MD Hypertensive chronic kidney disease with stage 1 through stage 4 chronic kidney disease, or unspecified chronic kidney disease (Primary Dx); Persistent proteinuria; Chronic kidney disease-mineral and bone disorder (CKD-MBD); Anemia in stage 4 chronic kidney disease; Other urinary incontinence 09/13/2025 Travel from Last 3 Months Immunizations Immunization Administration Dates Next Due Influenza Vaccine, Quadrival ent, Adjuvanted 07/24/2020 Influenza, High-dose, Split Virus, Trivalent, Injectable, preservative free 07/12/2024 Influenza, Split (incl. tamica fied surface antigen) 08/01/2014 Influenza, Unspecified 07/27/2017,08/12/2015 Influenza, high-dose, quadrivalent 07/07,08/04/2021,08/03/2018,07/25,08/10/2016 Influenza, recombinant, quad rivalent, injectable, preservative free 07/08/2022 Influenza, trivalent, adjuvanted 07/31/2019 Pneumococcal 20-nino Conj Vaccine 07/12/2024 Pneumococcal Conjugate PCV 13 12/08/2016 Pneumococcal Polysaccharide PPV23 11/28/2017 Pneumococcal, Unspecified 10/27/2016 Rsvpref, Recombinant, Protei n Subunit, Adjuvent 09/28/2024 Tdap 09/29/2021,01/12/2017 Zoster, Recombinant 07/13/2018,02/16/2018 Family History Medical History Relation Name Comments Cardiac disorder Father Conversions - Other Father Small ce ll lung cancer Hypertension Father Cardiac disorder Mother Hypertension Mother Relation Name Status Comments Father Mother Social History Tobacco Use Types Packs/Day Years [...] on file Sexual Orientation Not on file Last Filed Vital Signs Vital Sign Reading Time Taken Comments Blood Pressure 152/60 09/13/2025 10:32 AM EST Pulse 55 03/29/2025 1:05 PM EDT Temperature - - Respiratory Rate 18 09/13/2025 10:32 AM EST Oxygen Saturation 97% 09/13/2025 10:32 AM EST Inhaled Oxygen Concentration - - Weight 68 kg (150 lb) 09/13/2025 10:32 AM EST Height 170.2 cm (5' 7 ) 09/13/2025 10:32 AM EST Body Mass Index 23.49 09/13/2025 10:32 AM EST Plan of Treatment Upcoming Encounters Date Type Department Care Team (Late st Contact Info) Description 01/24/2026 1:40 PM EDT Office Visit [facility] [address] [place] [address] Bj Oliva MD [address] [place] [phone] Health Maintenance Due Date Last Done Comments [facility]-Depression Screening 1940 [facility]-Medicare Annual Wellness (AWV) 1940 [facility]-Infant/Child/Adol SDOH Screenings 1939 [facility]- SDOH Screenings 1957 [facility]-Adult SDOH Screenings 1957 [facility]-Bone Density Scan 08/22/2021 08/22/2019 [id number] Vaccine ( season) 2026 08/30/2025, 09/28/2024, 09/22/2023, Additional history exists [facility]-DTaP,Tdap,and Td Vaccines (3 - Td or Tdap) 09/29/2031 09/29/2021, 01/12/2017 [facility]-Zoster Vaccines Completed 07/13/2018, 8 [facility]-Diabetes: Hemoglobin A1C Discontinued 07/16/2020, 07/30/2019, 07/04/2018, Additional history exists [facility]-Pneumococcal Vaccine: 50+ Years Completed 07/12/2024, 11/28/2017, 12/08/2016, Additional history exists [facility]-RSV Vaccine: 60+ Years or Completed 09/28/2024 [facility]-Influenza Vaccine Completed 08/30/2025 , 07/12/2024, 07/07/2023, Additional history exists HPV Vaccines Aged Out No longer eligi ble based on patient's age to complete this topic [facility]-HIB Vaccines Aged Out No longer e ligible based on patient's age to complete this topic [facility]-Hepatitis A Vaccines Aged Out No longer eligible based on patient's age to complete this topic [facility]-IPV Vaccines Aged Out No longer e ligible based on patient's age to complete this topic [facility]-Rotavirus Vaccines Aged Out No lo nger eligible based on patient's age to complete this topic Insurance Care Teams Almond Grinder Relationship Specialty Start Date End Date Anna Montalvo APRN [address] [place] [address] PCP - General 9/19/24
--- OUTSIDE RECORDS SUMMARY | 2025-09-30 07:19 | XMS_ITS | Clinical Summary ---
Author Organization [facility] Address [address] [place] [address] Care Team Providers Care Energy Attorney Name Role Phone Emma Quintanilla MD Primary Care Provider [phone] Allergies No known active allergies Medications fexofenadine (NELL) 180 MG tablet Take 180 mg by mouth Every Other Day. Active ASPIRIN LOW DOSE PO Take 1 tablet by mouth daily. Active glucose blood (LOUISA CONTOUR NEXT TEST) test strip Use one strip to test blood sugar 1 time every day Active vitamin B-12 (CYANOCOBALAMIN) 1000 MCG tablet Take 1,000 mcg by mouth daily. Active metoprolol succinate XL (TOPROL-XL) 25 MG 24 hr tablet Take 25 mg by mouth Daily. Active FLAXSEED, LINSEED, PO Take 5,000 mg by mouth Daily. Active lidocaine (LIDODERM) 5 % Place 3 patches on the skin as directed by provider Daily. Remove & Discard patch within 12 hours or as directed by 90 each 5 0 Active clotrimazole (MYCELEX) 10 MG giorgio Take 1 tablet by mouth 5 (Five) Times a Day. 25 tablet 0 Active nystatin (MYCOSTATIN) 027926 UNIT/ML suspension Swish and swallow 5 mL 4 (Four) Times a Day. 473 mL 1 0 Active HYDROcodone-acetami nophen (Linden) 5-325 MG per tabletIndications:C hronic midline low back pain without sciatica Take 1 tablet by mouth Every 8 (Eight) Hours As Needed for Moderate Pain or Severe Pain . 30 tablet 0 Active fluticasone (FLONASE) 50 MCG/ACT nasal spray 2 sprays by Each Nare route Daily. 48 g 3 0 Active metFORMIN ER (GLUCOPHAGE-XR) 500 MG 24 hr tablet TAKE 1 TABLET DAILY 90 tablet 3 0 Active amoxicillin (AMOXIL) 500 MG capsuleIndications: Pharyngitis, unspecified etiology Take 1 capsule by mouth 2 (Two) Times a Day. 20 capsule 0 Active simvastatin (ZOCOR) 40 MG tabletIndications:H yperlipidemia, unspecified hyperlipidemia type TAKE 1 TABLET EVERY NIGHT 90 tablet 3 1 Active losartan (COZAAR) 50 MG tablet TAKE 1 TABLET DAILY 90 tablet 3 1 Active hydroCHLOROthiazide (HYDRODIURIL) 12.5 MG tablet TAKE 1 TABLET DAILY ONLY IF NEEDED FOR SWELLING 90 tablet 3 1 Active oxybutynin (DITROPAN) 5 MG tablet TAKE 1 TABLET DAILY 90 tablet 1 Active Active Problems Problem Noted Date Diagnosed Date Disorder of skin 08/27/2020 Skin lesion of chest wall 07/28/2020 Encounter for screening for malignant neoplasm o f colon 02/08/2018 Overview (02/08/2018): Added automatically from request for surgery [id number] Lung nodule 04/18/2017 Shoulder bursitis 02/23/2017 Syncope and collapse 09/13/2016 Atrial tachycardia, paroxysmal 09/13/2016 Abnormal kidney function study Acute upper respiratory infection Encounter for immunization Essential hypertension Hematoma Hyperlipidemia Macrocytosis Near syncope Palpitations Overactive bladder Persistent microalbuminuria associated with type 2 diabetes mellitus Shoulder pain Type 2 diabetes mellitus Sleep apnea Immunizations Immunization Administration Dates Next Due FLUAD TRI 65YR+ 07/31/2019 Fluad Quad 65+ 07/24/2020 Fluzone High-Dose 65+YRS 08/03/2018,07/25/2017,1 Influenza, Unspecified 08/12/2015 Pneumococcal Conjugate 13-Valent (PCV13) 017 Pneumococcal Polysaccharide (PPSV23) 11/28/2017 Shingrix 07/13/2018,02/16/2018 Tdap 01/12/2017 influenza Split 08/01/2014 Family History Medical History Relation Name Comments Lung cancer Father Coronary artery disease Other Family Hx Hypertension Other Family Hx Stroke Other Family Hx Relation Name Status Comments Father Mother Other Family Hx Social History Tobacco Use Types Packs/Day Years Used Date Smoking Tobacco: Never Smokeless Tobacco: Never Tobacco Cessation:Counseling Given: No Alcohol Use Standard Drinks/Week Comments No 0 [...] Sign Reading Time Taken Comments Blood Pressure 110/71 08/20/2020 12:32 PM CDT Pulse 85 08/20/2020 12:32 PM CDT Temperature 36.8 C (98.3 F) 08/20/2020 12:32 PM CDT Respiratory Rate 17 08/20/2020 12:32 PM CDT Oxygen Saturation 100% 08/20/2020 12:32 PM CDT Inhaled Oxygen Concentration - - Weight 72.6 kg (160 lb) 08/20/2020 12:32 PM CDT Height 170.2 cm (5' 7 ) 08/20/2020 12:32 PM CDT Body Mass Index 25.06 08/20/2020 12:32 PM CDT Plan of Treatment Health Maintenance Due Date Last Done Comments SAMI 1984 COLON CANCER SCREENING [address] COLONOGRAPHY 1984 FECAL OCCULT BLOOD TEST 1984 FIT Testing (1 year) 1984 RSV Vaccine - Adults (1 - 1-dose 75+ series) 2014 ANNUAL PHYSICAL 06/03/2016 PT PLAN OF CARE 04/11/2018 01/11/2018 COLONOSCOPY 04/21/2021 04/21/2018, 04/21/2018 COLORECTAL CANCER SCREENING 04/21/2021 LIPID PANEL 07/16/2021 07/16/2020, 04/2019, 07/04/2018, Additional history exists DXA SCAN 08/22/2021 08/22/2019 INFLUENZA VACCINE 05/24/2025 07/24/2020, , 08/03/2018, Additional history exists COVID-19 Vaccine ( season) 2025 TDAP/TD VACCINES (3 - Td or Tdap) 01/12/2027 01/12/2017, 01/10/2017 (Patient-Reported (Performed Externally)) Pneumococcal Vaccine 50+ Completed 018, 12/08/2016, 10/27/2016 ZOSTER VACCINE Addressed 07/13/2018, 01/23, 01/10/2017 (Declined) Overridden with the intention of not completing the topic URINE MICROALBUMIN-CREATININE RATIO (uACR) Discontinued 03/20/2019 (Declined), 12/02/2015 HEMOGLOBIN A1C Discontinued 07/16/2020, 04/2019, 03/20/2019 (Declined), Additional history exists Medical Devices Implanted Type Area Advertising Project Manager Device Identifier Shelf Expiration Date Model / Serial / Lot Clip Resolution 360 235cm - [id number] Implanted:Qty: 1 on 04/21/2018 by Jeison Austin MD at [facility] Implant N/A: [employer]um [employer] HOANG 02/12/2021 [id number] / / [id number] Procedures Procedure Name Priority Date/Time Associated Diagnosis Comments HEMOGLOBIN A1C Routine 07/16/2020 8:45 AM CDT Type 2 diabetes mellitus with autonomic neuropathy, unspecified 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 LIPID PANEL Routine 07/16/2020 8:45 AM CDT Hyperlipidemia, unspecified hyperlipidemia type DEXA BONE DENSITY AXIAL Routine 08/22/2019 2:49 PM CDT Postmenopausal COLONOSCOPY 04/21/2018 2:19 PM CDT MICROALBUMIN / CREATININE URINE RATIO Today 12/02/2015 9:10 AM AUTOMOBILE MECHANIC from Last 3 Months or Most Recently Relevant to Health Maintenance Results * (ABNORMAL) Hemoglobin A1c (07/16/2020 8:45 AM CDT) Hemoglobin A1C 7.02(H) 4.80 - 5.60 % 07/16/2020 7:51 PM CDT [facility] Blood Venipuncture / Unknown 07/16/2020 8:45 AM CDT 07/16/2020 8:45 AM CDT Narrative [facility] - 07/16/2020 7:51 PM CDT Hemoglobin A1C Ranges: Increased Risk for Diabetes 5.7% to 6.4% Diabetes >= 6.5% Diabetic Goal < 7.0% Emma Quintanilla MD LAB BLOOD ORDERABLES Final Re sult [facility]
[address] [place] [address], * (ABNORMAL) Lipid panel (07/16/2020 8:45 AM CDT) Total Cholesterol 158 150 - 200 mg/dL 07/16/2020 9:20 AM CDT [facility] Triglycerides 190(H) <=150 mg/dL 07/16/2020 9:20 AM CDT [facility] HDL Cholesterol 37(L) 40 - 59 mg/dL 07/16/2020 9:20 AM CDT [facility] LDL Cholesterol 83 <=100 mg/dL 07/16/2020 9:20 AM CDT [facility] VLDL Cholesterol 38 mg/dL 07/16/20 20 9:20 AM CDT [facility] LDL/HDL Ratio 2.24 0.00 - 3.22 07/16/2020 9:20 AM CDT [facility] Blood Venipuncture / Unknown 07/16/2020 8:45 AM CDT 07/16/2020 8:45 AM CDT Emma Quintanilla MD LAB BLOOD ORDERABLES Final Re sult [facility]
[address] [place] [address], * DEXA Bone Density Axial (08/22/2019 2:49 PM CDT) Anatomical Region Laterality Modality Wrist, Hip, L-spine N/A Bone Density 08/22/2019 2:36 PM CDT Impressions 08/22/2019 3:21 PM CDT CONCLUSION: 1. Bone mineral density measurements as above: .......Lumbar spine: Normal .......Femoral neck: Osteopenia The World Health Organization uses the following definitions: Osteopenia when the measurement of bone mineral density is between 1.0 and 2.5 standard deviations below the young normal control. Osteoporosis when the measurement of bone mineral density is below 2.5 standard deviations compared with a young normal control. Electronically signed by: Tre Nettles MD 08/22/2019 3:21 PM CDT Narrative 08/22/2019 3:21 PM CDT . Examination: Bone Mineral Densitometry (DXA) Indication: screening Comparison: 08/31/10 Findings: Lumbar spine (L1-L4) bone mineral density (BMD): . 1.324 grams per square centimeter . 2.5 standard deviations (T score) above the mean compared to a young normal. This represents a statistically significant interval increase. . Left femoral neck bone mineral density: . 0.687 grams per square centimeter . -1.5 standard deviations (T score) below the mean compared to a young normal. This represents a statistically significant interval decline. . Procedure Note Javi Nettles MD - 08/22/2019 . Examination: Bone Mineral Densitometry (DXA) Indication: screening Comparison: 08/31/10 Findings: Lumbar spine (L1-L4) bone mineral density (BMD): . 1.324 grams per square centimeter . 2.5 standard deviations (T score) above the mean compared to a young normal. This represents a statistically significant interval increase. . Left femoral neck bone mineral density: . 0.687 grams per square centimeter . -1.5 standard deviations (T score) below the mean compared to a young normal. This represents a statistically significant interval decline. . IMPRESSION: CONCLUSION: 1. Bone mineral density measurements as above: .......Lumbar spine: Normal .......Femoral neck: Osteopenia The World Health Organization uses the following definitions: Osteopenia when the measurement of bone mineral density is between 1.0 and 2.5 standard deviations below the young normal control. Osteoporosis when the measurement of bone mineral density is below 2.5 standard deviations compared with a young normal control. Electronically signed by: Tre Nettles MD 08/22/2019 3:21 PM CDT Emma Quintanilla MD IMG DXA ORDERABLES Final Resu lt * COLONOSCOPY (04/21/2018 2:19 PM CDT) us Jeison Austin MD INTERFACE NEEDS Final Result * (ABNORMAL) Microalbumin / creatinine urine ratio (12/02/2015 9:10 AM AUTOMOBILE MECHANIC) Creatinine, Urine 54.0 mg/dl 12/03/2015 10:30 AM AUTOMOBILE MECHANIC [facility] Albumin, U 2.6(H) 0.0 - 1.7 mg/dl 12/03/2015 10:35 AM [facility] Microalbumin/C reatinine Ratio 48.1(H) 0 - 30 mg/g 12/03/2015 10:35 AM [facility] 24 hour urine specimen (specimen) 12/02/2015 9:10 AM AUTOMOBILE MECHANIC 12/03/2015 8:52 AM AUTOMOBILE MECHANIC Narrative [facility] - 12/03/2015 10:35 AM AUTOMOBILE MECHANIC Specimen Type : Urine, 24 Hour us Emma Quintanilla MD URINE ORDERABLES Final Result [facility]
[address] [place] [address], from Last 3 Months or Most Recently Relevant to Health Maintenance [facility] Care Teams Energy Attorney Relationship Specialty Start Date End Date Emma Quintanilla MD [address] [place] [address] [address] [place], [place] [id number] PCP - General 04/07/16
--- NOTE | 2025-09-30 07:28 | XR_ITS ---
PROCEDURE INFORMATION: Exam: XR Chest Exam date and time: 09/30/2025 7:40 AM Age: 85 years old Clinical indication: Chest wall pain; Additional info: Chest pain TECHNIQUE: Imaging protocol: Radiologic exam of the chest. Views: 1 view. COMPARISON: CT CHEST WO CON 07/26/2024 12:41 PM FINDINGS: Lungs: Lungs are well aerated without a focal area of consolidation. Pleural spaces: Unremarkable. No pleural effusion. No pneumothorax. Heart/Mediastinum: The cardiac silhouette appears enlarged, some of which is magnification related to the AP projection. Bones/joints: Unremarkable. IMPRESSION: Lungs are well aerated without a focal area of consolidation.
[2025-09-30 07:36] LABS: Albumin Level 4.7 g/dl (3.5-5.0); Chloride 110 mmol/L (98-107)
[2025-09-30 07:37] LABS: Potassium 3.9 mmoL/L (3.5-5.1); Sodium 145 mmol/L (136-145)
[2025-09-30 07:39] LABS: Blood Urea Nitrogen 37 mg/dl (7-17); Creatinine Clearance Estimated 17 mL/min (50-200); Creatinine,Serum 2.70 mg/dl (0.52-1.04); Estimated Glomerular Filt Rate 17 ml/min (>60); GFR (African American) 20 ML/MIN (>60)
[2025-09-30 07:40] LABS: Alanine Aminotransferase 15 U/L (12-78); Albumin/Globulin Ratio 1.3 (1.1-1.8); Alkaline Phosphatase 123 U/L (38-126); Anion Gap 16.9 mEq/L (5-15); Aspartate Amino Transferase 24 U/L (14-36); Bilirubin,Total 0.5 mg/dl (0.2-1.3); Calcium 8.9 mg/dl (8.4-10.2); Carbon Dioxide 22 mmol/L (22.0-30.0); Globulin 3.6 g/dL (1.3-3.2); Glucose 121 mg/dl (74-100); Total Protein,Serum 8.3 g/dl (6.3-8.2)
[2025-09-30 07:41] LABS: Hematocrit 34.1 % (37.0-47.0); Hemoglobin 10.9 g/dL (12.2-16.2); Immature Granulocytes % 0.2 %; Mean Corpuscular HGB Conc 32.0 g/dL (31.8-35.4); Mean Corpuscular Hemoglobin 32.0 pg (27.0-31.2); Mean Corpuscular Volume 100.0 fl (81-99); Nucleated Red Blood Cells % 0 %; Platelet Count 286 K/mm3 (142-424); Red Blood Count 3.41 M/mm3 (4.20-5.40); Red Cell Distribution Width-SD 44.8 fL; White Blood Count 6.4 K/mm3 (4.8-10.8)
[2025-09-30] MEDS: ASPIRIN 325MG TABLET 325 MG PO (08:12)
[2025-09-30 08:19] LABS: D-Dimer 0.55 ug/mL (0.0-0.5)
[2025-09-30 08:29] LABS: Troponin I < 0.01 ng/ml (0.00-0.034)
--- NOTE | 2025-09-30 08:36 | PC.NURSE ---
cardiology notified of consult
[2025-09-30] MEDS: BELLADONNA ALKALOIDS 60 ML ML PO (09:18)
[2025-09-30] MEDS: FAMOTIDINE 20MG/2ML VIAL 20 MG IV (09:18)
--- NOTE | 2025-09-30 09:46 | CA_ITS ---
APPROVED REPORT EXAM: Comprehensive 2D, Doppler, and color-flow Echocardiogram Carriage Feeder: Mary Schaffer CRT Ht: 5 ft 6 in Wt: 155lbs BSA: 1.79 BP: 139/66 mmHg Indications: Chest Pain, Shortness of Breath, Diabetes, Palpitations, Hyperlipidemia, Hypertension/HDD 2D Dimensions LA Volume 32.90 mL LA Volume Index 17.90 mL/m2 (M/F) 16-34 M-Mode Dimensions RVDd 2.36 cm (0.9-2.6) LA Diam 3.48 cm (1.9-4.0) LVDd 4.19 cm (3.5-5.7) LVDs 2.11 cm (3.5-5.7) IVSd 1.86 cm (0.6-1.1) PWd 0.89 cm (0.6-1.1) EF (Teich) 81.30% FS 49.60% EDV (Teich) 78.10 mL ESV (Teich) 14.60 mL LV Diastology E Decel Time 210 (160-240 msec) E/A Ratio 0.80 MED A' 12.00 cm/s LAT A' 14.70 cm/s Aortic Valve AO Peak GR. 5.70 mmHg Mitral Valve MV E Max Rich. 85.0 (40-130 cm/s) MV A Velocity 106.0 (40-130 cm/s) E/A Ratio 0.80 MV PHT 62.0 ms Pulmonary Valve PV Peak Velocity 164.0 (50-150 cm/s) Tricuspid Valve TR P. Velocity 341.00 cm/s RAP Estimate 10.00 mmHg RVSP 56.50 mmHg Left Ventricle The left ventricle is normal size. Left ventricular systolic function is normal. The left ventricular ejection fraction is within the normal range. There is increased left ventricular wall thickness. There is normal LV segmental wall motion. Transmitral Doppler flow pattern suggests impaired LV relaxation. LVEF is 55% Right Ventricle The right ventricle is mildly to moderately dilated. The right ventricular systolic function is mildly reduced. Atria Left atrium is mildly dilated. Right atrium is mildly dilated. There is no color Doppler evidence of interatrial shunt. Aortic Valve The aortic valve is mildly thickened. There is no hemodynamically significant aortic valvular stenosis. Trace aortic regurgitation is present. Mitral Valve The mitral valve is normal in structure. No evidence of mitral valve stenosis. Mild mitral regurgitation is present. Tricuspid Valve The tricuspid valve leaflets are thin and pliable. Mild tricuspid regurgitation. RVSP is 40-45 mmHg. Pulmonic Valve The pulmonary valve is grossly normal in structure. Mild pulmonic valve regurgitation is present. Great Vessels The aortic root is normal in size. The ascending aorta is mildly dilated, measuring 3.9 cm in diameter. IVC is normal in size and collapses >50% with inspiration. Pericardium There is no pericardial effusion. Other Information Study Quality: Fair Conclusion Normal LV systolic function (LVEF 55%). Mild to moderate RV dilation with mild reduction in RV function. Biatrial dilation. Mild TR. Elevated RVSP 40-45 mmHg. The ascending aorta is mildly dilated, measuring 3.9 cm in diameter. Further evaluation for RV dysfunction is suggested. Electronically signed by : Sia Beatty MD 09/30/2025 13:13:41
--- NOTE | 2025-09-30 10:42 | PC.NURSE ---
echo at bedside
[2025-09-30 11:40] LABS: Troponin I < 0.01 ng/ml (0.00-0.034)
--- NOTE | 2025-09-30 14:08 | EXP.CARD.CON ---
History of Present Illness History of Present Illness Consult date: 09/30/25 Requesting physician: Javi Lugo Consult reason: chest pain Chief complaint: chest pain History of present illness: This is an 85-year-old white female who presented to the emergency department with complaints of chest pain. The patient has a past medical history of hypertension, hyperlipidemia, diabetes, CKD and GERD. The patient states that she was going to a movie and they were walking up the hill when she started having chest pain last week while exerting herself. Her symptoms lasted about 5 minutes and then resolved with rest. She did feel little short of breath at that time. She has not had any chest pain since that time. She woke up this morning around 4:30 AM and while laying in bed she felt pressure in the anterior aspect of her chest. She states it radiated to her right shoulder. She states that it was a throbbing pressure sensation. It was worse with exertion. Nothing really helped to improve the pain. She states that this was a severe pain. She called her daughter and came to the emergency department. She was treated with a GI cocktail and her symptoms have resolved at this time. Her troponin is negative. Echocardiogram shows a normal ejection fraction. [facility] Disclaimer: The information contained in this section may have been updated after the patient was seen, as this information can be updated by other users. Medical History (Updated 09/30/25 @ 14:12 by Em Crockett APRN) Chronic Kidney Disease GERD (gastroesophageal reflux disease) Hyperlipidemia Hypertensive disorder Diabetes mellitus SOB (shortness of breath) Chest pain Complex sleep apnea syndrome Palpitations Chronic pain syndrome Crescendo angina Surgical History History of cataract surgery S/P complete hysterectomy Family History Other Cancer Coronary artery disease Diabetes Heart attack Hypertension Social History Smoking Status: Never smoker second hand exposure: No alcohol intake: never counseling provided: none substance use type: denies use current occupational status: other Travel in the last 8 weeks?: None household members: none housing: house current occupational exposures/hazards: No Review of Systems Review of Systems Review of systems:: pertinent systems reviewed and negative unless documented below Constitutional Constitutional: Reports system reviewed and no additional complaints, except as documented Eyes Eyes: Reports system reviewed and no additional complaints, except as documented ENT Ears, Nose, Mouth, and Throat: Reports system reviewed and no additional complaints, except as documented *Cardiovascular Cardiovascular: Reports system reviewed and no additional complaints, except as documented, Reports chest pain, Reports chest pain at rest, Reports chest pain with activity and Reports dyspnea *Respiratory Respiratory: Reports system reviewed and no additional complaints, except as documented and Reports dyspnea *Gastrointestinal Gastrointestinal: Reports system reviewed and no additional complaints, except as documented *Genitourinary Genitourinary: Reports system reviewed and no additional complaints, except as documented *Musculoskeletal Musculoskeletal: Reports system reviewed and no additional complaints, except as documented Integumentary/Breasts Skin/Breast: Reports system reviewed and no additional complaints, except as documented *Neurologic Neurologic: Reports system reviewed and no additional complaints, except as documented Psychiatric Psychiatric: Reports system reviewed and no additional complaints, except as documented Endocrine Endocrine: Reports system reviewed and no additional complaints, except as documented Hematologic/Lymphatic Hematologic/Lymphatic: Reports system reviewed and no additional complaints, except as documented Allergic/Immunologic Allergic/Immunologic: Reports system reviewed and no additional complaints, except as documented Exam Data for Last 24 hours Vital signs and Labs for Last 24 Hours: Temp Pulse Resp BP Pulse Ox O2 Del Method 98.1 F 54 L 20 139/69 95 Room Air 09/30/25 12:11 09/30/25 12:11 09/30/25 12:11 09/30/25 12:11 09/30/25 11:00 09/30/25 12:11 Laboratory Results - last 24 hr 09/30/25 07:15: D-Dimer 0.55 H 09/30/25 07:28: Sodium 145, Potassium 3.9, Chloride 110 H, Carbon Dioxide 22, Anion Gap 16.9 H, BUN 37 H, Creatinine 2.70 H, Estimated Creat Clear 17, Estimated GFR 17 L*, Est GFR ( Amer) 20 L, Glucose 121 H, Calcium 8.9, Total Bilirubin 0.5, AST 24, ALT 15, Alkaline Phosphatase 123, Troponin I < 0.01, Total Protein 8.3 H, Albumin 4.7, Globulin 3.6 H, Albumin/Globulin Ratio 1.3 09/30/25 11:13: Troponin I < 0.01 09/30/25 : WBC 6.4, RBC 3.41 L, Hgb 10.9 L, Hct 34.1 L, MCV 100.0 H, MCH 32.0 H, MCHC 32.0, RDW 12.2, Plt Count 286, MPV 9.4, Neut % (Auto) 56.4, Lymph % (Auto) 34.0, Bullitt % (Auto) 7.0, Eos % (Auto) 1.9, Baso % (Auto) 0.5, Neut # (Auto) 3.6, Lymph # (Auto) 2.2, [place]itt # (Auto) 0.5, Eos # (Auto) 0.1, Baso # (Auto) 0.0 I & O for Last 24 hours: Intake & Output 09/27/25 09/28/25 09/29/25 09/30/25 23:59 23:59 23:59 23:59 Weight 155 lb Constitutional Constitutional: no acute distress and average body habitus *Routine HEENT Exam Head: Present normocephalic and atraumatic ENT: Present mucous membranes moist *Routine Neck Exam Neck: Present supple, full ROM and normal carotid upstroke; Absent JVD, carotid bruit or lymphadenopathy *Routine Respiratory Exam Respiratory: Present CTA bilaterally, normal respiratory effort, able to speak in complete sentences and symmetric chest movement *Routine Cardiovascular Exam Cardiovascular: Present RRR, Normal S1 and Normal S2; Absent murmur or gallop *Routine Abdominal Exam Abdominal: Present soft and normoactive bowel sounds; Absent tenderness, distended or organomegaly *Routine Extremities Exam Extremities: Present full ROM, pulses intact and normal capillary refill; Absent cyanosis, clubbing or edema *Routine Skin Exam Skin: Present intact and warm; Absent erythema *Routine Neurological Exam Neurological: Present alert, oriented X3 and CN II-XII intact; Absent sensory deficit or motor deficit Routine Psychiatric Exam Psychiatric: Present normal affect Meds Home Medications and Allergies Home Medications ?Medication ?Instructions ?Recorded ?Confirmed ?Type metoprolol tartrate 25 mg tablet 25 mg PO BID bp 06/28/23 09/26/25 History losartan 50 mg tablet 25 mg PO DAILY High blood pressure 12/15/23 09/26/25 History omeprazole 40 mg capsule,delayed 40 mg PO QDAY gerd #90 caps 07/30/24 09/26/25 Rx release atorvastatin 40 mg tablet 40 mg PO DAILY 09/12/25 09/26/25 History blood sugar diagnostic (Accu-Chek #10 ea 09/12/25 09/12/25 History Guide test strips) blood-glucose meter (Accu-Chek #1 ea 09/12/25 09/12/25 History Guide Me Glucose Meter) cetirizine 10 mg tablet (Zyrtec) 10 mg PO DAILY PRN 09/12/25 09/26/25 History lancets (Accu-Chek Softclix #100 ea 09/12/25 09/12/25 History Lancets) mirabegron 25 mg tablet,extended 25 mg PO DAILY 09/12/25 09/26/25 History release 24 hr sitagliptin phosphate 25 mg tablet 25 mg PO DAILY 09/26/25 09/26/25 History (Tushar) New Prescriptions to Start Prescriptions: Allergies Allergy/AdvReac Type Severity Reaction Status Date / Time No Known Allergies Allergy Verified 09/26/25 13:51 Assessment and Plan *Assessment and plan (1) Atypical chest pain: Status: Acute Category: Medical Code(s): R07.89 - Other chest pain (2) SOB (shortness of breath): Status: Acute Category: Medical Code(s): R06.02 - Shortness of breath (3) Hyperlipidemia: Status: Chronic Qualifiers: Hyperlipidemia type: mixed hyperlipidemia Qualified Code(s): E78.2 - Mixed hyperlipidemia Category: Medical Code(s): E78.5 - Hyperlipidemia, unspecified (4) Hypertensive disorder: Status: Chronic Qualifiers: Hypertension type: essential hypertension Qualified Code(s): I10 - Essential (primary) hypertension Category: Medical Code(s): I10 - Essential (primary) hypertension (5) Diabetes mellitus: Status: Chronic Qualifiers: Diabetes mellitus type: type 2 Diabetes mellitus complication status: without complication Diabetes mellitus watermaster insulin use: unspecified fdc insulin use status Qualified Code(s): E11.9 - Type 2 diabetes mellitus without complications Category: Medical Code(s): E11.9 - Type 2 diabetes mellitus without complications (6) GERD (gastroesophageal reflux disease): Status: Acute Qualifiers: Esophagitis presence: esophagitis presence not specified Qualified Code(s): K21.9 - Gastro-esophageal reflux disease without esophagitis Category: Medical Code(s): K21.9 - Gastro-esophageal reflux disease without esophagitis (7) Chronic Kidney Disease: Status: Acute Qualifiers: Chronic kidney disease stage: unspecified stage Qualified Code(s): N18.9 - Chronic kidney disease, unspecified Category: Medical Code(s): N18.9 - Chronic kidney disease, unspecified Plan Plan: 1. The patient presented to the emergency department with complaints of chest pain. Her symptoms improved with a GI cocktail. She is currently chest pain free. She ruled out for an NE. No plans for invasive left cardiac catheterization. 2. Echocardiogram was obtained and her EF is normal. She does have some mild RV dilation and slightly elevated RVSP which may be chronic. 3. The patient will need Lexiscan Myoview stress test urgently this week to rule out ischemia due to her chest pain last week and chest pain this morning that brought her to the emergency department. 4. Her blood pressure is well-controlled. Continue metoprolol and losartan. 5. Her LDL goal is less than 100. She is on a statin. 6. The patient is diabetic. She will need aggressive control of her diabetes. Will defer to her PCP. 7. The patient does have a history of GERD. Continue her PPI. 8. No further recommendations at this time from a cardiac standpoint. The patient can be discharged home today from the emergency department with Lexiscan Myoview stress testing this week and follow-up next week with Jose G in cardiology clinic. Thank you for the opportunity to help participate in the care of this patient. All recommendations and orders are per Dr. Beatty.
== END 2025-09-30 12:14 | disposition home or self-care (01) ==
PROVIDERS: Emergency Provider Emergency Medicine; PCP Nurse Practitioner Family
DX: R07.89 Other chest pain (principal); I44.7 Left bundle-branch block, unspecified; R00.1 Bradycardia, unspecified; I10 Essential (primary) hypertension; E78.5 Hyperlipidemia, unspecified; E11.9 Type 2 diabetes mellitus without complications; Z79.84 Long term (current) use of oral hypoglycemic drugs
CPT/HCPCS: 71045; 80053; 84484; 85025; 85378; 93005; 93306; 96374; 99285; J1308

== ENCOUNTER 2025-10-03 06:15 | Outpatient (CLI) | payer MEDICARE, SELFPAY ==
--- OUTSIDE RECORDS SUMMARY | 2015-11-20 14:15 | XMS_ITS | Encounter Summary ---
Author Organization [facility] Address [address] [place] [address] Care Team Providers Care Double Cut Sawyer Name Role Phone Unavailable Primary Care Provider Unavailabl e Encounter Details Date Type Department Care Team (Late st Contact Info) Description 11/20/2015 1:15 PM RETAIL SUPPORT MANAGER Hospital Encounter [facility] PULMONARY & CRITICAL CARE MEDICINE [address] [place] [address] [address] [place] [address] Jeison Whiting MD [address] [place] [address] [place] [address] Social History Tobacco Use Types [...]
--- OUTSIDE RECORDS SUMMARY | 2015-12-08 09:00 | XMS_ITS | Encounter Summary ---
[facility] Address [address] [place] [address] Care Team Providers Care Brazer Controlled Atmospheric Furnace Name Role Phone Unavailable Primary Care Provider Unavailabl e Encounter Details Date Type Department Care Team (Late st Contact Info) Description 12/08/2015 8:00 AM IT TECHNICAL SUPPORT SPECIALIST Hospital Encounter [facility] CARDIOLOGY [address] KATHLEEN [address]O [address] [place] [address] Emma Quintanilla MD [address] [place] [address] [place] [address] Social History Tobacco Use Types [...]
--- OUTSIDE RECORDS SUMMARY | 2015-12-08 14:00 | XMS_ITS | Encounter Summary ---
[facility] Address [address] [place] [address] Care Team Providers Care Pastry Cook Apprentice Name Role Phone Unavailable Primary Care Provider Unavailabl e Encounter Details Date Type Department Care Team (Late st Contact Info) Description 12/08/2015 1:00 PM TELECOMMUNICATIONS OPERATOR Hospital Encounter [facility] CARDIOLOGY [address] K[address]LE[address]O [address] [place] [address] Emma Quintanilla MD [address] [place] [address] [place] [address] Social History Tobacco Use Types [...] help finding or keeping work or a olyainka b? Not on file 07/31/2023 Disabilities Answer [...]
--- OUTSIDE RECORDS SUMMARY | 2015-12-08 14:00 | XMS_ITS | Encounter Summary ---
[facility] Address [address] [place] [address] Care Team Providers Care Chute Man Name Role Phone Unavailable Primary Care Provider Unavailabl e Encounter Details Date Type Department Care Team (Late st Contact Info) Description 12/08/2015 1:00 PM SONAR WATCHSTANDER Hospital Encounter [facility] CARDIOLOGY [address] K[address]LEEN [address]O [address] [place] [address] Emma Quintanilla MD [address] [place] [address] [place] [address] Social History Tobacco Use Types [...]
--- OUTSIDE RECORDS SUMMARY | 2015-12-08 15:00 | XMS_ITS | Encounter Summary ---
[facility] Address [address] [place] [address] Care Team Providers Care Manager Fitness Name Role Phone Unavailable Primary Care Provider Unavailabl e Encounter Details Date Type Department Care Team (Late st Contact Info) Description 12/08/2015 2:00 PM INDUSTRIAL CONVEYOR BELT REPAIRER Hospital Encounter [facility] CARDIOLOGY [address] KATHLE[address]O [address] [place] [address] Emma Quintanilla MD [address] [place] [address] [place] [address] Social History Tobacco Use Types [...]
--- OUTSIDE RECORDS SUMMARY | 2016-01-07 09:15 | XMS_ITS | Encounter Summary ---
Author Organization [facility] Address [address] [place] [address] Care Team Providers Care Manager Post Name Role Phone Unavailable Primary Care Provider Unavailabl e Encounter Details Date Type Department Care Team (Late st Contact Info) Description 01/07/2016 9:15 AM CDT Hospital Encounter [facility] CARDIOLOGY [address] [place] [address] [address] [place] [address] Caitlin Vaughn MD [address] [place] [address] [address] [place] [address] Social History Tobacco Use Types [...]
--- OUTSIDE RECORDS SUMMARY | 2016-01-20 08:45 | XMS_ITS | Encounter Summary ---
Author Organization [facility] Address [address] [place] [address] Care Team Providers Care Hazardous Substances Engineer Name Role Phone Unavailable Primary Care Provider Unavailabl e Encounter Details Date Type Department Care Team (Late st Contact Info) Description 01/20/2016 8:45 AM CDT Hospital Encounter [facility] CARDIOLOGY [address] [place] [address] [address] [place] [address] Caitlin Vaughn MD [address] [place] [address] [address] [place] [address] Social History Tobacco Use Types [...]
--- OUTSIDE RECORDS SUMMARY | 2016-02-18 08:10 | XMS_ITS | Encounter Summary ---
Author Organization [facility] Address [address] [place] [address] Care Team Providers Care Ramp Lead Name Role Phone Unavailable Primary Care Provider Unavailabl e Encounter Details Date Type Department Care Team (Late st Contact Info) Description 02/18/2016 8:10 AM CDT Hospital Encounter [facility] CARDIOLOGY [address] [place] [address] [address] [place] [address] Caitlin Vaughn MD [address] [place] [address] [address]LE[address] [place] [address] Social History Tobacco Use Types [...]
--- OUTSIDE RECORDS SUMMARY | 2016-03-17 08:10 | XMS_ITS | Encounter Summary ---
Author Organization [facility] Address [address] [place] [address] Care Team Providers Care Soft Hat Binder Name Role Phone Unavailable Primary Care Provider Unavailabl e Encounter Details Date Type Department Care Team (Late st Contact Info) Description 03/17/2016 8:10 AM CDT Hospital Encounter [facility] CARDIOLOGY [address] [place] [address] [address]LE[address] [place] [address] Caitlin Vaughn MD [address] [place] [address] [address] K[address]LE[address] [place] [address] Social History Tobacco Use Types [...]
--- OUTSIDE RECORDS SUMMARY | 2016-03-29 07:57 | XMS_ITS | Encounter Summary ---
[facility] Address [address] [place] [address] Care Team Providers Care Accountant Bookkeeper Name Role Phone Unavailable Primary Care Provider Unavailabl e Encounter Details Date Type Department Care Team (Late st Contact Info) Description 03/29/2016 7:57 AM CDT Hospital Encounter [facility] Emma Quintanilla MD [address] [place] [address] [place] [address] Social History Tobacco Use Types Packs/Day [...]
--- OUTSIDE RECORDS SUMMARY | 2016-06-03 08:00 | XMS_ITS | Encounter Summary ---
Author Organization [facility] Address [address] [place] [address] Care Team Providers Care Tetryl Screen Operator Name Role Phone Emma Quintanilla MD Primary Care Provider [phone] Encounter Details Date Type Department Care Team (Late st Contact Info) Description 06/03/2016 8:00 AM CDT Hospital Encounter [facility] Emma Quintanilla MD [address] [place] [address] [place] [address] Social History Tobacco Use Types Packs/Day [...] - 100.0 mg/dl 06/03/2016 11:42 AM T [facility] BUN 26(H) 8.0 - 25.0 mg/dl 06/03/2016 11:42 AM T [facility] Creatinine 1.1 0.4 - 1.3 mg/dl 06/03/2016 11:42 AM T [facility] Sodium 140.0 134 - 146 mmol/L 06/03/2016 11:42 AM T [facility] Potassium 5.0 3.4 - 5.4 mmol/L 06/03/2016 11:42 AM [facility] Chloride 103.0 100.0 - 112.0 mmol/L 06/03/2016 11:42 AM T [facility] CO2 28.0 20.0 - 32.0 mmol/L 06/03/2016 11:42 AM T [facility] Calcium 9.6 8.4 - 10.8 mg/dl 06/03/2016 11:42 AM T [facility] Total Protein 7.6 6.7 - 8.2 gm/dl 06/03/2016 11:42 AM T [facility] Albumin 4.2 3.2 - 5.5 gm/dl 06/03/2016 11:42 AM T [facility] Total Bilirubin 0.6 0.2 - 1.0 mg/dl 06/03/2016 11:42 AM T [facility] Alkaline Phosphatase 69 15 - 121 U/L 06/03/2016 11:42 AM T [facility] ALT (SGPT) 14 10 - 60 U/L 06/03/2016 11:42 AM [facility] AST (SGOT) 17 10 - 60 U/L 06/03/2016 11:42 AM T [facility] GFR MDRD Non 48 39 - 90 mL/min/1.7 3 sq.M 06/03/2016 11:42 AM [facility] Comment: Invalid if creatinine is changing or the patient is on dialysis. Use AA result if patient is -Finnish, non AA result otherwise. GFR MDRD 58 39 - 90 mL/min/1.7 3 sq.M 06/03/2016 11:42 AM [facility] Anion Gap 9.0 5.0 - 15.0 mmol/L 06/03/2016 11:42 AM T [facility] Blood specimen (specimen) 06/03/2016 10:25 AM CDT 06/03/2016 10:31 AM CDT Narrative [facility] - 06/03/2016 11:42 AM CDT Specimen Type : Blood13 HRPP Emma Quintanilla MD LAB BLOOD ORDERABLES Final Re sult [facility]
[address] [place] [address], [place] [phone] [facility]
[address] [place] [address], [place] [phone] * (ABNORMAL) Lipid panel (06/03/2016 10:25 AM CDT) Total Cholesterol 145(L) 150 - 200 mg/dl 06/03/2016 11:42 AM CDT [facility] Comment:CHOL DESIRED: < 200 MG/DL Triglycerides 185(H) 35 - 160 mg/dl 06/03/2016 11:42 AM CDT [facility] Comment:TRIG DESIRED: < 200 MG/DL HDL Cholesterol 36.4 35.0 - 100.0 mg/dl 06/03/2016 11:42 AM CDT [facility] Comment:HDL AVERAGE RISK: 35 - 60 MG/DL LDL Cholesterol 72 mg/dl 6 11:42 AM CDT [facility] Comment: LDL DESIRED: < 130 MG/DL LDL DESIRED: < 130 MG/DL LDL DESIRED: < 130 MG/DL Blood specimen (specimen) 06/03/2016 10:25 AM CDT 06/03/2016 10:31 AM CDT Narrative [facility] - 06/03/2016 11:42 AM CDT Specimen Type : Blood13 HRPP Emma Quintanilla MD LAB BLOOD ORDERABLES Final Re sult [facility]
[address] [place] [address], [place] [phone] [facility]
[address] [place] [address], * (ABNORMAL) CBC and Differential (06/03/2016 10:25 AM CDT) WBC 5.5 3.2 - 9.8 x1000/uL 06/03/2016 10:37 AM CDT [facility] RBC 4.05 3.77 - 5.16 carol/mm3 06/03/2016 10:37 AM CDT [facility] Hemoglobin 13.2 12.0 - 15.5 gm/dl 06/03/2016 10:37 AM CDT [facility] Hematocrit 39.9 35.0 - 45.0 % 06/03/2016 10:37 AM CDT [facility] MCV 98.5(H) 80.0 - 98.0 fl 06/03/2016 10:37 AM CDT [facility] MCH 32.6 26.0 - 34.0 pg 06/03/2016 10:37 AM CDT [facility] MCHC 33.1 31.4 - 36.0 gm/dl 06/03/2016 10:37 AM CDT [facility] Platelets 286 150 - 450 x1000/mm3 06/03/2016 10:37 AM CDT [facility] RDW 12.3 11.5 - 14.5 % 06/03/2016 10:37 AM CDT [facility] MPV 9.6 8.0 - 12.0 fl 06/03/2016 10:37 AM CDT [facility] Neutrophil Rel % 56.5 37.0 - 80.0 % 06/03/2016 10:37 AM CDT [facility] Lymphocyte Rel % 32.5 10.0 - 50.0 % 06/03/2016 10:37 AM CDT [facility] Monocyte Rel % 7.5 0.0 - 12.0 % 06/03/2016 10:37 AM CDT [facility] Eosinophil Rel % 2.4 0.0 - 7.0 % 06/03/2016 10:37 AM CDT [facility] Basophil Rel % 1.1 0.0 - 2.0 % 06/03/2016 10:37 AM CDT [facility] nRBC 0 06/03/2016 10:37 AM CDT [facility] nRBC 0 06/03/2016 10:37 AM CDT [facility] Blood specimen (specimen) 06/03/2016 10:25 AM CDT 06/03/2016 10:31 AM CDT [facility] - 06/03/2016 10:37 AM CDT Specimen Type : Blood13 HRPP Emma Quintanilla MD LAB BLOOD ORDERABLES Final Re sult [facility]
[address] [place] [address], [place] [phone] [facility]
[address] [place] [address], [place] [phone] documented in this encounter Visit Diagnoses Not on filedocumented in this encounter Care Teams Tetryl Screen Operator Relationship Specialty Start Date End Date Emma Quintanilla MD [address] [place] [address] [place] [address] PCP - General 04/07/16 documented as of this encounter
--- OUTSIDE RECORDS SUMMARY | 2016-06-03 08:23 | XMS_ITS | Encounter Summary ---
Author Organization [facility] Address [address] [place] [address] Care Team Providers Care Assembler Arranger Name Role Phone Emma Quintanilla MD Primary Care Provider [phone] Encounter Details Date Type Department Care Team (Late st Contact Info) Description 06/03/2016 8:23 AM CDT Hospital Encounter [facility] Emma Quintanilla MD [address] [place] [address] [place] [address] Social History Tobacco Use Types Packs/Day [...] - 5.6 %TotHgb 06/04/2016 10:32 AM CDT [facility] Blood specimen (specimen) 06/03/2016 10:25 AM CDT 06/04/2016 8:52 AM CDT Narrative [facility] - 06/04/2016 10:32 AM CDT Specimen Type : WHOLE BLOOD13 HRPP us Emma Quintanilla MD LAB BLOOD ORDERABLES Final Re sult [facility]
[address] [place] [address], * TSH (06/03/2016 10:25 AM CDT) TSH 1.36 0.46 - 4.68 uIU/ml 06/04/2016 9:37 AM CDT [facility] Blood specimen (specimen) 06/03/2016 10:25 AM CDT 06/04/2016 8:52 AM CDT [facility] - 06/04/2016 9:37 AM CDT Specimen Type : Blood13 HRPP us Emma Quintanilla MD LAB BLOOD ORDERABLES Final Re sult Performing Organization Address City/[facility]/ZIP Co de Phone Number [facility]
[address] [place] [address], * T4, free (06/03/2016 10:25 AM CDT) Free T4 0.99 0.78 - 2.19 ng/dl 06/04/2016 9:20 AM CDT [facility] Blood specimen (specimen) 06/03/2016 10:25 AM CDT 06/04/2016 8:52 AM CDT [facility] - 06/04/2016 9:20 AM CDT Specimen Type : Blood13 HRPP us Emma Quintanilla MD LAB BLOOD ORDERABLES Final Re sult Performing Organization Address [facility] Co de Phone Number [facility]
[address] [place] [address], documented in this encounter Visit Diagnoses Not on filedocumented in this encounter Care Teams Assembler Arranger Relationship Specialty Start Date End Date Emma Quintanilla MD [address] [place] [address] [place] [address] PCP - General 04/07/16 documented as of this encounter
--- OUTSIDE RECORDS SUMMARY | 2025-09-13 10:40 | XMS_ITS | Encounter Summary ---
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 Patient denies pain at the current moment. She does have questions about hydrogenated water. * Consultation (Routine) - Closed Specialty Diagnoses / Procedures Referred By Paulie martínez Referred To Contact Diagnoses Hypertensive chronic kidney disease with stage 1 through stage 4 chronic kidney disease, or unspecified chronic kidney disease Persistent proteinuria Bj Oliva MD [address] [place] [address] Phone: tel: fax: Referral ID Status Reason Start Date Expiration Date Visits Re quested Visits Authorized [id number] Closed 03/29/2025 09/28/2026 1 1 Encounter Details Date Type Department Care Team ([facility] st Contact Info) Description 09/13/2025 10:40 AM EST Office Visit [facility] [address] [place], [place] [address] Bj Oliva MD [address] [place] [address] Hypertensive chronic kidney disease with stage 1 through stage 4 chronic kidney disease, or unspecified chronic kidney disease (Primary Dx); Persistent proteinuria; Chronic kidney disease-mineral and bone disorder (CKD-MBD); Anemia in stage 4 chronic kidney disease; Other urinary incontinence Social History Tobacco Use Types Packs/Day Years Used Date Smoking Tobacco: Never Passive Smoke Exposure: Never Smokeless Tobacco: Never Tobacco Cessation:Counseling Given: Not Answered Alcohol Use Standard Drinks/Week Comments Never 0 (1 standard drink = 0.6 oz pur e alcohol) Comments No Sex and Gender Information Value Date Recorded Sex Assigned at Not on file Legal Sex Female 6:28 PM EDT Gender Identity Not on file Sexual Orientation Not on file documented as of this encounter Last Filed Vital Signs Vital Sign Reading Time Taken Comments Blood Pressure 152/60 09/13/2025 10:32 AM EST Pulse - - Temperature - - Respiratory Rate 18 09/13/2025 10:32 AM EST Oxygen Saturation 97% 09/13/2025 10:32 AM EST Inhaled Oxygen Concentration - - Weight 68 kg (150 lb) 09/13/2025 10:32 AM EST Height 170.2 cm (5' 7 ) 09/13/2025 10:32 AM EST Body Mass Index 23.49 09/13/2025 10:32 AM EST documented in this encounter Miscellaneous Notes * Progress Notes - Bj Oliva MD - 09/13/2025 10:40 AM EST Nephrology clinic follow up visit [facility] in [place] SELINA Juares presents for follow up for Cr 2.4, renal insufficiency by Dr. Gary Henning MD. HISTORY OF PRESENT ILLNESS 85 y.o. yo F with PMH of HTN, DM 2, PORSHA, GERD, CKD 3 who has bveen referred to clinic for evaluation of changes in renal function. Cr fluctuations with medication changes. Feels well today. Stopped Farxiga 4 months ago and no longer getting any yeast infections. Denies dysuria, hematuria, abd pain, acute SOA, CP, flank pain, F/C, NVD. Past Medical History: Diagnosis Date Arthritis Diabetes mellitus Hyperlipidemia Hypertension Obstructive sleep apnea (adult) (pediatric) Obstructive sleep apnea, adult Personal history of other specified conditions History of tachycardia Family History Problem Relation Name Age of Onset Cardiac disorder Mother Cardiac disorder Father Hypertension Mother Hypertension Father Conversions - Other Father Small cell lung cancer Past Surgical History: Procedure Laterality Date CATARACT EXTRACTION N/A cataract surgery from [facility] HYSTERECTOMY N/A Hysterectomy from [facility] Social History Tobacco Use Smoking status: Never Passive exposure: Never Smokeless tobacco: Never Substance Use Topics Alcohol use: Never Current Outpatient Medications Medication Sig Dispense Refill atorvastatin (Lipitor) 20 MG tablet Take 1 tablet by mouth daily. cetirizine (ZyrTEC) 10 MG tablet Take 1 tablet by mouth daily. Flaxseed, Linseed, (FLAXSEED OIL PO) Take 40 mg by mouth daily. losartan (Cozaar) 25 MG tablet Take 1 tablet by mouth daily. 90 tablet 3 metoprolol tartrate (Lopressor) 25 MG tablet mirabegron ER (Myrbetriq) 25 MG tablet omeprazole (PriLOSEC) [address] capsule Take 1 capsule (40 mg) by mouth 1 (one) time each day. Vitamin D-Vitamin K (VITAMIN K2-VITAMIN D3 PO) Take by mouth. cyanocobalamin 100 MCG tablet Take 1 tablet (100 mcg) by mouth 1 (one) time each day. (Patient not taking: Reported on 09/13/2025) famotidine (Pepcid) 20 MG tablet (Patient not taking: Reported on 09/13/2025) Farxiga 10 MG tablet (Patient not taking: Reported on 09/13/2025) glucose blood test strip Use one strip to test blood sugar 1 time every day (Patient not taking: Reported on 09/13/2025) metoprolol succinate XL (Toprol XL) 25 MG 24 hr tablet Take 1 tablet (25 mg) by mouth 1 (one) time each day. (Patient not taking: Reported on 09/13/2025) No current facility-administered medications for this visit. No Known Allergies All medications have been reviewed today. OBJECTIVE Vitals: 11/21/25 1032 BP: (!) 152/60 Resp: 18 SpO2: 97% PHYSICAL EXAMINATION Gen: NAD, elderly Neck: trachea midline CV: regular rate Resp: symmetrical chest expansion, no increased work of breathing, good insp/exp effort NO EDEMA Neuro: AOx3, cortical function grossly intact Psych: affect congruent with mood, judgement normal LAB RESULTS Outside labs reviewed. labs Na 141 K 3.8 Cl 112 CO2 22 AGAP 11 BUN 41 CR 2.5 eGFR 18 Glu 135 Ca 9.0 Phos 3.7 Albumin 4.3 CBC: Hgb 11.7 (low) Urine protein 120, urien cr 60, UPCR ~2.0 Urine culture >100K CFU of GNR 03/14/25 CBC: WBC 7.0, Hgb 11.8, PLT 325 RFP: Na 139, K 4.2, Cl 108, CO2 23, BUN 44, Cr 2.4, EGFR 19, Glu 113, Ca 9.1, Phos 3.3, Alb 4.5 Ur creat 38, microalbumin 63.7, ACR 167.6 UA 1+ protein, 2+ glucose, 1+ blood IPTH 101.4 C3 141, C4 27 SPEP alpha 2 glob 1.1 (H) Fr K 53, Fr Lambda 29 ratio 1.8 Urine culture: klebsiella pneumoniae ASSESSMENT/PLAN Sharmila Juares is a 85 y.o. female with PMH of HTN, DM 2, PORSHA, GERD, CKD 3 who has been referred to clinic for evaluation of changes in renal function. # CKD 4: Etiology: Unkn, suspect DM > HTN Baseline cr 1.7-2.2 with a lot of fluctuations Cr most recently 2.9 eGFR 15 No major issues with electrolytes, acid/base, or volume status Urine: +proteinuria UACR 150-170s, UPCR 1.1-1.2 Anatomy: issues with pelvic floor dysfunction/incontinence going to see urogynecology Risk factor reduction: -Goal BP <130/80 -DM control goal A1c <7.5% -Proteinuria treatment with ARB (losartan) and BMOR4dn (Farxiga 10mg daily) -Avoid NSAIDs -See Urology for urinary incontinence #Proteinuria: UPC 2.0 mg/mg C3 141, C4 27 SPEP alpha 2 glob 1.1 (H) Fr K 53, Fr Lambda 29 ratio 1.8 -on ARB and SGLT2 in #HTN in CKD: -goal BP <130/80 -Currently at goal today #DM 2 w/ CKD: uncontrolled with A1c 8.3% -goal A1c <7.5% due to age -Currently only taking Dapagliflozin 10mg daily -NOT on metformin #CKD-MBD: - stable PTH 201, vit D 64 #Anemia in CKD: - at goal Hb 11.7 g/dL - goal 10-12 g/dl #Urinary incontinence #Groin pain #Bacteriuria ->100k CFU of GNR on recent urine culture -Patient having urinary incontinence >6 weeks + left sided groin pain that comes and goes -referred to Urology #Elevated kappa and lambda light chains -ratio 1.8. This is common in CKD Plan/Recs: -Kidney function a little worse. Egfr is 15 up from 19 last visit. Electrolytes, acid/base, volume status, anemia, CKD BMD and HTN are all at goal. STOPped SGLT2 due to recurrent yeast infection. Still on low dose Losartan. Feels well, appears well. No changes today. -UACR 171, UPCR ~1.1, mostly tubular proteinuria -Avoid NSAIDs -Will see PCP today for Urology referral -Follow up urine culture RTC in 3-4 months Orders Placed This Encounter Procedures CBC W/O Differential Standing Status: Future Expected Date: 01/11/2026 Expiration Date: 03/17/2027 Release to patient in [facility]: Immediate Urinalysis with reflex microscopic (Culture NOT Included) Standing Status: Future Expected Date: 01/11/2026 Expiration Date: 03/17/2027 Release to patient in [facility]: Immediate Vitamin D 25 Hydroxy Standing Status: Future Expected Date: 01/11/2026 Expiration Date: 03/17/2027 Release to patient in [facility]: Immediate PTH Intact Total Standing Status: Future Expected Date: 01/11/2026 Expiration Date: 03/17/2027 Release to patient in [facility]: Immediate Albumin-creatinine ratio, urine, random Standing Status: Future Expected Date: 01/11/2026 Expiration Date: 03/17/2027 Release to patient in [facility]: Immediate Protein, Random, Urine with Creatinine Standing Status: Future Expected Date: 01/11/2026 Expiration Date: 03/17/2027 Release to patient in MyChart: Immediate Renal Function Panel, Plasma Standing Status: Future Expected Date: 01/11/2026 Expiration Date: 03/17/2027 Release to patient in MyChart: Immediate Follow Up Nephrology Standing Status: Future Expected Date: 01/11/2026 Expiration Date: 10/13/2026 Referral Priority: Routine Referral Type: Consultation Number of Visits Requested: 1 Problem List Items Addressed This Visit Absence of bladder continence Persistent proteinuria Chronic kidney disease-mineral and bone disorder (CKD-MBD) Relevant Orders Follow Up Nephrology Hypertensive chronic kidney disease with stage 1 through stage 4 chronic kidney disease, or unspecified chronic kidney disease - Primary Relevant Orders CBC W/O Differential Urinalysis with reflex microscopic (Culture NOT Included) Vitamin D 25 Hydroxy PTH Intact Total Albumin-creatinine ratio, urine, random Protein, Random, Urine with Creatinine Renal Function Panel, Plasma Follow Up Nephrology Other Visit Diagnoses Anemia in stage 4 chronic kidney disease Relevant Orders CBC W/O Differential Urinalysis with reflex microscopic (Culture NOT Included) Vitamin D 25 Hydroxy PTH Intact Total Albumin-creatinine ratio, urine, random Protein, Random, Urine with Creatinine Renal Function Panel, Plasma Follow Up Nephrology Note to Patient: The Cure Act makes medical noted like these available to patients in the interest of transparency. However, be advised this is a medical document. It is intended as peerto peer communication. It is written in medical language and may contain abbreviations or verbiage that are unfamiliar. It may appear blunt or direct. Medical documents are intended to carry relevantinformation, facts as evident, and the clinical opinion of the physician documented in this encounter Plan of Treatment Upcoming Encounters Date Type Department Care Team (Late st Contact Info) Description 01/24/2026 1:40 PM EDT Office Visit [facility] [address] [place] [address] Bj Oliva MD [address] [place] [id number] Scheduled Orders Name Type Priority Associated Diagnoses Orde r Schedule CBC W/O Differential Lab Routine Hypertensive chronic kidney disease with stage 1 through stage 4 chronic kidney disease, or unspecified chronic kidney disease Anemia in stage 4 chronic kidney disease Expected: 01/11/2026 (Approximate), Expires: 03/17/2027 Urinalysis with reflex microscopic (Culture NOT Included) Lab Routine Hypertensive chronic kidney disease with stage 1 through stage 4 chronic kidney disease, or unspecified chronic kidney disease Anemia in stage 4 chronic kidney disease Expected: 01/11/2026 (Approximate), Expires: 03/17/2027 Vitamin D 25 Hydroxy Lab Routine Hypertensive chronic kidney disease with stage 1 through stage 4 chronic kidney disease, or unspecified chronic kidney disease Anemia in stage 4 chronic kidney disease Expected: 01/11/2026 (Approximate), Expires: 03/17/2027 PTH Intact Total Lab Routine Hypertensive chronic kidney disease with stage 1 through stage 4 chronic kidney disease, or unspecified chronic kidney disease Anemia in stage 4 chronic kidney disease Expected: 01/11/2026 (Approximate), Expires: 03/17/2027 Albumin-creatinine ratio, urine, random Lab Routine Hypertensive chronic kidney disease with stage 1 through stage 4 chronic kidney disease, or unspecified chronic kidney disease Anemia in stage 4 chronic kidney disease Expected: 01/11/2026 (Approximate), Expires: 03/17/2027 Protein, Random, Urine with Creatinine Lab Routine Hypertensive chronic kidney disease with stage 1 through stage 4 chronic kidney disease, or unspecified chronic kidney disease Anemia in stage 4 chronic kidney disease Expected: 01/11/2026 (Approximate), Expires: 03/17/2027 Renal Function Panel, Plasma Lab Routine Hypertensive chronic kidney disease with stage 1 through stage 4 chronic kidney disease, or unspecified chronic kidney disease Anemia in stage 4 chronic kidney disease Expected: 01/11/2026 (Approximate), Expires: 03/17/2027 Scheduled Referrals Name Type Priority Associated Diagnoses Orde r Schedule Follow Up Nephrology Outpatient Referral Routine Hypertensive chronic kidney disease with stage 1 through stage 4 chronic kidney disease, or unspecified chronic kidney disease 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 chronic kidney disease Expected: 01/11/2026 (Approximate), Expires: 10/13/2026 documented as of this encounter Visit Diagnoses Diagnosis Hypertensive chronic kidney disease with stage 1 through stage 4 chronic kidney disease, or unspecified chronic kidney disease- Primary Persistent proteinuria 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
--- NOTE | 2025-10-03 | CA_ITS ---
APPROVED REPORT Exam: Pharmacologic Technologist: Lilia Aponte Ht: 5 ft 6 in Wt: 155 lbs BSA: 1.79 m2 HR: 49 bpm BP: 142/60 mmHg Medical History Medications: Metoprolol Tartrate, Losartan, Omeprazole, Atorvastatin, Cetrizine, Mirabegron, Januvia. Stress Test Details Test: Lexiscan Reason for pharmacologic stress test: physical limitation. HR Resting HR: 49 bpm Max Heart Rate (APMHR): 134.186969 bpm Max HR Achieved: 75 bpm Target HR (85% APMHR): 113.507461 bpm % of APMHR: 55.97 Recovery HR: 70 bpm BP Resting BP: 142.0/60.0 mmHg Max BP: 142.0/60.0 mmHg Recovery BP: 123.0/57.0 mmHg ECG Resting ECG: Sinus Bradycardia 1*AVB Clinical Stress Symptoms: None. Stress ECG Conclusion Lungs CTA prior to test start. Symptoms: None. Arrhythmias/Ectopy: PVC/PAC. ST-T Changes: Less than 0.5mm upsloping ST segment changes. Conclusion: Nondiagnostic ECG/Lexiscan. Electronically signed by : Sia Beatty MD 10/07/2025 13:21:01
--- OUTSIDE RECORDS SUMMARY | 2025-10-03 06:18 | XMS_ITS | Clinical Summary ---
Author Organization [facility] Address [address] [place] [address] Phone Care Team Providers Care Field Service Poultry Technician Name Role Phone Unavailable Primary Care [...] 10:30 AM EST Office Visit [facility] [address] [address] Little Rayo MD [address] [place] [id number] Health Maintenance Due Date Last Done [...] patient's age to complete this topic Insurance [facility] MEDICARE PPO MR
--- OUTSIDE RECORDS SUMMARY | 2025-10-03 06:19 | XMS_ITS | Clinical Summary ---
Author Organization [facility] Address [address] [place] [address] Care Team Providers Care Ditching Machine Operator Name Role Phone Emma Quintanilla MD Primary Care Provider [phone] Allergies No known active allergies Medications fexofenadine [...] Day. 25 tablet 0 Active nystatin (MYCOSTATIN) 370133 UNIT/ML suspension Swish and swallow 5 mL 4 (Four) Times a Day. 473 mL 1 0 Active HYDROcodone-acetami nophen ([place]) 5-325 MG per tabletIndications:C hronic midline low [...] (02/08/2018): Added automatically from request for surgery [id number] Lung nodule 04/18/2017 Shoulder bursitis 02/23/2017 Syncope [...] history exists Medical Devices Implanted Type Area Billet Inspector Device Identifier Shelf Expiration Date Model / Serial / Lot Clip Resolution 360 235cm - [id number] Implanted:Qty: 1 on 04/21/2018 by Jeison Austin MD at [facility] Implant N/A: [employer] HOANG 02/12/2021 [id number] / / [id number] Procedures Procedure Name Priority Date/Time Associated Diagnosis Comments HEMOGLOBIN A1C Routine 07/16/2020 8:45 AM CDT Type 2 diabetes mellitus with autonomic neuropathy, unspecified whether vermin exterminator insulin use LIPID PANEL Routine 07/16/2020 8:45 AM CDT Hyperlipidemia, unspecified hyperlipidemia type DEXA BONE DENSITY AXIAL Routine 08/22/2019 2:49 PM CDT Postmenopausal COLONOSCOPY 04/21/2018 2:19 PM CDT MICROALBUMIN / CREATININE URINE RATIO Today 12/02/2015 9:10 AM ASSEMBLER SEMICONDUCTOR from Last 3 Months or Most Recently Relevant to Health Maintenance Results * (ABNORMAL) Hemoglobin A1c (07/16/2020 8:45 AM CDT) Hemoglobin A1C 7.02(H) 4.80 - 5.60 % 07/16/2020 7:51 PM CDT [facility] Blood Venipuncture / Unknown 07/16/2020 8:45 AM CDT 07/16/2020 8:45 AM CDT Narrative [facility] - 07/16/2020 7:51 PM CDT Hemoglobin A1C Ranges: Increased Risk for Diabetes 5.7% to 6.4% Diabetes >= 6.5% Diabetic Goal < 7.0% Emma Quintanilla MD LAB BLOOD ORDERABLES Final Re sult [facility]
[address] [place] [address], * (ABNORMAL) Lipid panel (07/16/2020 8:45 AM CDT) Total Cholesterol 158 150 - 200 mg/dL 07/16/2020 9:[address] [facility] Triglycerides 190(H) <=150 mg/dL 07/16/2020 9:[address] [facility] HDL Cholesterol 37(L) 40 - 59 mg/dL 07/16/2020 9:[address] [facility] LDL Cholesterol 83 <=100 mg/dL 07/16/2020 9:[address] [facility] VLDL Cholesterol 38 mg/dL 07/16/20 20 9:[address] [facility] LDL/HDL Ratio 2.24 0.00 - 3.22 07/16/2020 9:[address] [facility] Blood Venipuncture / Unknown 07/16/2020 8:45 AM CDT 07/16/2020 8:45 AM CDT Emma Quintanilla MD LAB BLOOD ORDERABLES Final Re sult [facility]
[address] [place] [address], * DEXA Bone Density Axial (08/22/2019 2:49 [...] / creatinine urine ratio (12/02/2015 9:10 AM ASSEMBLER SEMICONDUCTOR) Creatinine, Urine 54.0 mg/dl 12/03/2015 10:30 AM ASSEMBLER SEMICONDUCTOR [facility] Albumin, U 2.6(H) 0.0 - 1.7 mg/dl 12/03/2015 10:35 AM [facility] Microalbumin/C reatinine Ratio 48.1(H) 0 - 30 mg/g 12/03/2015 10:35 AM [facility] 24 hour urine specimen (specimen) 12/02/2015 9:10 AM ASSEMBLER SEMICONDUCTOR 12/03/2015 8:52 AM ASSEMBLER SEMICONDUCTOR Narrative [facility] - 12/03/2015 10:35 AM ASSEMBLER SEMICONDUCTOR Specimen Type : Urine, 24 Hour us Emma Quintanilla MD URINE ORDERABLES Final Result [facility]
[address] [place] [address], from Last 3 Months or Most Recently Relevant to Health Maintenance Insurance [facility] Care Teams Ditching Machine Operator Relationship Specialty Start Date End Date Emma Quintanilla MD [address] [place] [address] DR SNIDER, MAGGIE [address] PCP - General 04/07/16
--- OUTSIDE RECORDS SUMMARY | 2025-10-03 06:19 | XMS_ITS | Encounter Summary ---
Author Organization Healthcare Address [address] [id number] Care Team Providers Care Anglesmith Helper Name Role Phone Anna Montalvo APRN Primary Care Provider [phone] Encounter Details Date Type Department Care Team [...] Description 01/24/2026 1:40 PM EDT Office Visit [facility] [address] [place] [address] [address] [place] [address] Bj Oliva MD [address] [place] [phone] documented as of this encounter Visit Diagnoses Not on filedocumented in this encounter Additional Health Concerns Assessment Noted Time A fall risk assessment has been complete d for the patient 12/05/2023 2:35 PM EST A Body Mass Index follow-up plan has been documented for the patient 09/13/2025 10:53 AM EST documented as of this encounter Care Teams Anglesmith Helper Relationship Specialty Start Date End Date Anna Montalvo APRN [address] [facility] [address] [place] [address] PCP - General 07/12/24 documented as of this encounter
--- OUTSIDE RECORDS SUMMARY | 2025-10-03 06:19 | XMS_ITS | Encounter Summary ---
Author Organization [facility] Address [address] [place] [address] Care Team Providers Care Business Services Administrator Name Role Phone Derek Stephenson MD Primary Care Provider [phone] Anna Montalvo APRN Primary Care Provider [phone] Reason for Referral * Consultation (Routine) - Closed Specialty Diagnoses / Procedures Referred By Paulie martínez Referred To Contact Nephrology Diagnoses CKD stage G3b/A1, GFR 30-44 and albumin creatinine ratio <30 mg/g (CMS/HCC) Gary Henning MD [address] [facility] [address] [id number] Phone: tel: fax: [facility] [address] [facility], [address] [place] [address] Phone: tel: fax: Referral ID Status Reason Start Date Expiration Date V isits Requested Visits Authorized [id number] Closed Specialty Services Required 08/01/2023 01/30/2025 1 1 Encounter Details Date Type Department Care Team (Late st Contact Info) Description 08/01/2023 Community [facility] [address] [place] [address] Gary Henning MD [address] [facility] [address] [facility] [address] [place] [address] CKD stage G3b/A1, GFR 30-44 and albumin [...] Upcoming Encounters Date Type Department Care Team ([facility] st Contact Info) Description 01/24/2026 1:40 PM EDT Office Visit [facility] [address] [place] [phone] Bj Oliva MD [address] [place] [address] Scheduled Referrals Name Type Priority Associated Diagnoses Order Schedule Ambulatory referral to Nephrology Outpatient Referral Routine CKD stage G3b/A1, GFR 30-44 and albumin creatinine ratio <30 mg/g (CMS/HCC) Ordered: 08/01/2023 documented as of this encounter Visit Diagnoses Diagnosis CKD stage G3b/A1, GFR 30-44 and albumin creatinine ratio <30 mg/g (CMS/HCC)- Primary documented in this encounter Care Teams Business Services Administrator Relationship Specialty Start Date End Date Derek Stephenson MD [address] [address] PCP - General 03/06/21 07/11/24 Anna Montalvo APRN [address] [address] PCP - General 07/12/24 documented as of this encounter
--- OUTSIDE RECORDS SUMMARY | 2025-10-03 06:19 | XMS_ITS | Clinical Summary ---
Author Organization [facility] Address [address] [place] [address] Care Team Providers Care Acoustical Engineer Name Role Phone Anna Montalvo NEUROLOGY MANAGER Primary Care Provider [phone]- [phone] Allergies No known active allergies Medications omeprazole [...] Description 09/13/2025 10:40 AM EST Office Visit [facility] [address] [facility] [address] [place] [address] Bj Oliva MD [...] Description 01/24/2026 1:40 PM EDT Office Visit [facility] [address] [place] [address] Bj Oliva MD [address] [place] [phone] Health Maintenance Due Date Last Done Comments [facility]-Depression Screening 1940 [facility]-Medicare Annual Wellness (AWV) 1939 [facility]-Infant/Child/Adol SDOH Screenings 1939 [facility]- SDOH Screenings 1957 [facility]-Adult SDOH Screenings 1957 [facility]-Bone Density Scan 08/22/2021 08/22/2019 [id number] Vaccine ( season) 2026 08/30/2025, 09/28/2024, 09/22/2023, [...] to complete this topic Insurance Care Teams Acoustical Engineer Relationship Specialty Start Date End Date Anna Montalvo APRN [address] [place] [address] PCP - General 9/19/24
--- NOTE | 2025-10-03 06:30 | NM_ITS ---
APPROVED REPORT Exam: Nuclear Stress Test Indication: cp..palpiatations...fatigue Patient Location: Inpatient Stress Tech: Lilia Cunha NE Tech:Blanca Chew RADHAKiley RT(R)(N) Ht: 5 ft 6 in Wt: 155 lbs Bra Size: 38b HR: 53 bpm BP: 142/60 mmHg BSA: 1.79 m2 TID: 1.00 BMI: 25.0 History: cp..palpiatations...fatigue Procedure: Patient received 0.4 mg of intravenous Lexiscan, resting heart rate 53 bpm, resting blood pressure 142/60 mmHg, with Lexiscan maximum heart rate achieved was 71 bpm which is 85 % of the maximum predicted heart rate and blood pressure was 137/52 mmHg. With Lexiscan, patient denied any complaint of chest pain. Cardiac Stress and Resting SPECT Images: Cardiac Stress and Resting SPECT images were obtained using technetium 99m Myoview 31.5 mCi stress and 10.98 mCi at rest. Resting and stress imaging in supine and prone positions demonstrate no evidence of fixed or reversible perfusion defects. Gated imaging demonstrates normal global LV systolic function. LVEF is calculated at 71%. Conclusion: No evidence of fixed or reversible perfusion defects. Gated imaging demonstrates normal global LV systolic function. LVEF is calculated at 71%. Electronically signed by : Sia Beatty MD 10/07/2025 13:08:10
[2025-10-03 08:00] VITALS: BP 142/60; PULSE 49; RESP 14
[2025-10-03] MEDS: SODIUM CHLORIDE 0.9% 10ML SYR (RAD ONLY) 10 ML IV ×2 (09:02)
[2025-10-03] MEDS: ISOTOPE MYOVIEW (PER STUDY) 1 DOSE IV (09:02)
== END 2025-10-03 23:59 | disposition home or self-care (01) ==
LOC: RAD 06:16
PROVIDERS: PCP Nurse Practitioner Family; Visit Provider Physician Assistant
DX: I49.1 Atrial premature depolarization (principal); I49.3 Ventricular premature depolarization; R94.31 Abnormal electrocardiogram [ECG] [EKG]; I44.0 Atrioventricular block, first degree
CPT/HCPCS: 78452; 93017; 93018; A9502; J2785